=== PATIENT | female | born 1960 | race Caucasian/White ===

== ENCOUNTER → 2018-06-11 15:21 | Outpatient (REF) | payer MEDICAID, SELFPAY | LOC: NCHCN 15:21 | PROVIDERS: Visit Provider Nurse Practitioner Family | DX: R30.0 Dysuria (principal) | CPT/HCPCS: 87086 ==

== ENCOUNTER → 2018-07-07 12:43 | Outpatient (CLI) | payer MEDICAID, SELFPAY ==
[2018-07-07 13:12] LABS: Abs Immature Grans 0.01 k/cumm (0.0-0.09); Absolute Basophil Count 0.04 k/cumm (0.0-0.2); Absolute Eosinophil Count 0.28 k/cumm (0.0-0.7); Absolute Lymphocyte Count 2.51 k/cumm (1.2-3.4); Absolute Monocyte Count 0.47 k/cumm (0.11-0.7); Basophils % 0.6; Eosinophils % 4.3; HCT 42.1 % (36.0-46.0); HGB 13.5 g/dL (12.0-15.5); Immature Grans % 0.2; Lymphocytes % 38.6; Mean Corp. HGB Concentration 32.1 g/dL (32.0-36.0); Mean Corpuscular Hemoglobin 26.5 pg (27.0-33.0); Mean Corpuscular Volume 82.7 fL (80-95); Monocytes % 7.2; Neutrophils % 49.1; Platelet Count 255 x1000/uL (130-400); RBC 5.09 m/cumm (4.00-5.20); RBC Distribution Width 16.6 % (11.7-14.6); White Blood Cell Count 6.51 k/cumm (4.4-10.8)
[2018-07-07 14:01] LABS: ALT 28 U/L (12-78); Albumin 3.7 g/dL (3.4-5.0); Alkaline Phosphatase 83 U/L (46-116); Bilirubin, Direct 0.08 mg/dL (0.00-0.20); Bilirubin, Total 0.3 mg/dL (0.2-1.0); C-Reactive Protein 0.27 mg/dL (0.0-0.3); Total Protein 6.8 g/dL (6.4-8.2)
[2018-07-07 14:17] LABS: AST 20 U/L (15-37)
== END ==
PROVIDERS: Visit Provider Internal Medicine Gastroenterology
DX: K52.9 Noninfective gastroenteritis and colitis, unspecified (principal); Z79.899 Other long term (current) drug therapy
CPT/HCPCS: 36415; 80076; 85025; 86140

== ENCOUNTER 2018-07-20 16:14 | Outpatient (CLI) | payer MEDICAID, SELFPAY ==
[2018-07-20 17:45] LABS: Abs Immature Grans 0.01 k/cumm (0.0-0.09); Absolute Basophil Count 0.04 k/cumm (0.0-0.2); Absolute Eosinophil Count 0.28 k/cumm (0.0-0.7); Absolute Lymphocyte Count 3.03 k/cumm (1.2-3.4); Absolute Monocyte Count 0.76 k/cumm (0.11-0.7); Basophils % 0.6; Eosinophils % 3.9; HCT 41.5 % (36.0-46.0); HGB 13.4 g/dL (12.0-15.5); Immature Grans % 0.1; Lymphocytes % 42.6; Mean Corp. HGB Concentration 32.3 g/dL (32.0-36.0); Mean Corpuscular Hemoglobin 26.7 pg (27.0-33.0); Mean Corpuscular Volume 82.8 fL (80-95); Mean Platelet Volume 10.6 fL (8.0-11.0); Monocytes % 10.7; Neutrophils % 42.1; Platelet Count 212 x1000/uL (130-400); RBC 5.01 m/cumm (4.00-5.20); RBC Distribution Width 16.1 % (11.7-14.6); White Blood Cell Count 7.12 k/cumm (4.4-10.8)
[2018-07-20 17:52] LABS: ALT 28 U/L (12-78); AST 19 U/L (15-37); Albumin 3.6 g/dL (3.4-5.0); Alkaline Phosphatase 83 U/L (46-116); Bilirubin, Direct 0.05 mg/dL (0.00-0.20); Bilirubin, Total 0.2 mg/dL (0.2-1.0); Total Protein 6.7 g/dL (6.4-8.2)
== END 2018-07-20 16:34 ==
PROVIDERS: Visit Provider Internal Medicine Gastroenterology
DX: K52.9 Noninfective gastroenteritis and colitis, unspecified (principal); Z79.899 Other long term (current) drug therapy
CPT/HCPCS: 80076; 85025; 86140

== ENCOUNTER 2018-09-02 11:42 | Outpatient (CLI) | payer MEDICAID, SELFPAY ==
[2018-09-02 12:28] LABS: Abs Immature Grans 0.02 k/cumm (0.0-0.09); Absolute Basophil Count 0.02 k/cumm (0.0-0.2); Absolute Eosinophil Count 0.22 k/cumm (0.0-0.7); Absolute Lymphocyte Count 2.59 k/cumm (1.2-3.4); Absolute Monocyte Count 0.47 k/cumm (0.11-0.7); Absolute Neutrophil Count 2.98 k/cumm (1.2-6.7); Basophils % 0.3; Eosinophils % 3.5; HCT 39.8 % (36.0-46.0); HGB 12.7 g/dL (12.0-15.5); Immature Grans % 0.3; Lymphocytes % 41.1; Mean Corp. HGB Concentration 31.9 g/dL (32.0-36.0); Mean Corpuscular Volume 84.7 fL (80-95); Mean Platelet Volume 10.2 fL (8.0-11.0); Monocytes % 7.5; Neutrophils % 47.3; Platelet Count 216 x1000/uL (130-400); RBC Distribution Width 15.7 % (11.7-14.6)
[2018-09-02 13:41] LABS: ALT 30 U/L (12-78); AST 17 U/L (15-37); Albumin 3.6 g/dL (3.4-5.0); Alkaline Phosphatase 76 U/L (46-116); Bilirubin, Total 0.3 mg/dL (0.2-1.0); Total Protein 6.4 g/dL (6.4-8.2)
[2018-09-02 13:50] LABS: C-Reactive Protein 0.31 mg/dL (0.0-0.3)
== END 2018-09-02 12:02 ==
PROVIDERS: Visit Provider Internal Medicine Gastroenterology
DX: K52.9 Noninfective gastroenteritis and colitis, unspecified (principal); Z79.899 Other long term (current) drug therapy
CPT/HCPCS: 36415; 80076; 85025; 86140

== ENCOUNTER 2018-09-27 16:48 | Outpatient (CLI) | payer MEDICAID, SELFPAY ==
[2018-09-27 17:08] LABS: Abs Immature Grans 0.01 k/cumm (0.0-0.09); Absolute Basophil Count 0.02 k/cumm (0.0-0.2); Absolute Eosinophil Count 0.27 k/cumm (0.0-0.7); Absolute Lymphocyte Count 2.84 k/cumm (1.2-3.4); Absolute Monocyte Count 0.79 k/cumm (0.11-0.7); Basophils % 0.3; Eosinophils % 3.5; Immature Grans % 0.1; Lymphocytes % 37.2; Mean Corp. HGB Concentration 32.5 g/dL (32.0-36.0); Mean Corpuscular Hemoglobin 27.4 pg (27.0-33.0); Mean Corpuscular Volume 84.2 fL (80-95); Mean Platelet Volume 10.1 fL (8.0-11.0); Monocytes % 10.4; Neutrophils % 48.5; Platelet Count 245 x1000/uL (130-400); RBC 4.75 m/cumm (4.00-5.20); RBC Distribution Width 15.6 % (11.7-14.6); White Blood Cell Count 7.63 k/cumm (4.4-10.8)
[2018-09-27 19:02] LABS: ALT 38 U/L (12-78); AST 21 U/L (15-37); Albumin 3.8 g/dL (3.4-5.0); Alkaline Phosphatase 73 U/L (46-116); Bilirubin, Direct 0.07 mg/dL (0.00-0.20); Bilirubin, Total 0.3 mg/dL (0.2-1.0); Total Protein 6.6 g/dL (6.4-8.2)
== END 2018-09-27 17:08 ==
PROVIDERS: Visit Provider Internal Medicine Gastroenterology
DX: K52.9 Noninfective gastroenteritis and colitis, unspecified (principal); Z79.899 Other long term (current) drug therapy
CPT/HCPCS: 36415; 80076; 85025; 86140

== ENCOUNTER 2018-11-04 12:20 | Outpatient (REF) | payer MEDICAID, SELFPAY ==
--- NOTE | 2018-11-04 11:12 | PAPFT_PTH ---
PATIENT: Parris Ibanez LOC: [facility] U#:[id number] AGE/SX: 58/F ROOM: RE11/04/[address]: Alida Adams : 1960 BED: DIS: 11/04/2018 SPEC #: [id number] RECD: 11/05/18 13:12 STATUS: SHEELA REQ #: [id number] VIOLA: 11/04/18 11:[address]: Alida Adams DEPT: [facility] Cytology RECD BY: Mariana Brasher ENTERED: 11/05/18 13:13 SP TYPE: PAPFT OTHR DR: Concepcion Dodd Tissues: 1 - CX/ENDOCX FOR PAP SMEARS Procedures: PAP THIN PREP/UVM Screening Comments: [id number] (UNSATISFACTORY FOR EVALUATION)
[2018-11-04 21:17] LABS: Bilirubin Negative (Negative); Blood Negative (Negative); Clarity Clear; Glucose Negative (Negative); Ketones Negative (Negative); Leukocyte Esterase Negative (Negative); Nitrite Negative (Negative); Specific Gravity 1.025 (1.005-1.025); Urobilinogen 0.2 EU/dL (Up TO 0.2); pH 6.5 (5-8)
== END 2018-11-04 12:40 ==
LOC: NCHCN 12:20
PROVIDERS: Visit Provider Nurse Practitioner Family
DX: R10.9 Unspecified abdominal pain (principal); Z12.4 Encounter for screening for malignant neoplasm of cervix
CPT/HCPCS: 88142; 81003; 87480; 87510; 87660

== ENCOUNTER 2018-11-18 08:14 | Outpatient (CLI) | payer MEDICAID, SELFPAY ==
--- NOTE | 2018-11-18 16:25 | DI.MAMMO_ITS ---
SYMPTOM/DIAGNOSIS: SCREENING, Z12.39 MAMMOGRAMS: Mammograms were interpreted according to the usual protocol including computer analysis with CAD system, tomosynthesis and C view imaging. Comparison is made with exams from [id number]. The breasts are composed of scattered fibroglandular densities, breast density, category B. No suspicious masses or suspicious microcalcifications are seen. There has been no significant change. IMPRESSION: Category 1B, negative mammogram. Yearly screening mammography is recommended. [facility] ASSESSMENT OF FINDINGS: Negative. Category 1. Patient will receive a letter notifying them of these results. BI-RADS category B. There are scattered areas of fibroglandular density.
== END 2018-11-18 08:34 ==
PROVIDERS: PCP Nurse Practitioner Family; Visit Provider Nurse Practitioner Family
DX: Z12.31 Encounter for screening mammogram for malignant neoplasm of breast (principal)
CPT/HCPCS: 77063; 77067

== ENCOUNTER 2018-11-23 15:43 | Outpatient (CLI) | payer MEDICAID, SELFPAY ==
[2018-11-23 17:08] LABS: ALT 35 U/L (12-78); AST 17 U/L (15-37); Anion Gap 11.1 mmol/L (3-11); BUN 14 mg/dL (7-18); CO2 26.9 mmol/L (21.0-32.0); CREATININE 0.78 mg/dL (0.55-1.02); Calcium 8.7 mg/dL (8.5-10.1); Chloride 104 mmol/L (98-107); Cholesterol 209 mg/dL (50-200); Glucose 130 mg/dL (70-100); HDL Cholesterol 73 mg/dL (40-60); LDL CHOLESTEROL 107 mg/dL (<100); Potassium 3.7 mmol/L (3.5-5.1); Sodium 142 mmol/L (136-145); Triglyceride 194 mg/dL (30-150)
[2018-11-23 17:20] LABS: D-Dimer 440 ng/mlFEU (<500)
[2018-11-23 18:28] LABS: Creatine Kinase 133 U/L (26-192); NT-proBNP 32 pg/mL
== END 2018-11-23 16:03 ==
PROVIDERS: PCP Nurse Practitioner Family; Visit Provider Nurse Practitioner Family
DX: R07.89 Other chest pain (principal); I10 Essential (primary) hypertension; E66.9 Obesity, unspecified
CPT/HCPCS: 36415; 80048; 80061; 82550; 83721; 83880; 84450; 84460; 85379

== ENCOUNTER 2018-11-23 17:15 | Outpatient (REF) | payer MEDICAID, SELFPAY ==
--- NOTE | 2018-11-23 14:43 | PAPFT_PTH ---
PATIENT: Parris Ibanez LOC: [facility] U#:[id number] AGE/SX: 58/F ROOM: RE11/23/[address]: Alida Adams : 1960 BED: DIS: 11/23/2018 SPEC #: [id number] RECD: 11/24/18 12:52 STATUS: SHEELA REQ #: [id number] VIOLA: 11/23/18 14:[address]: Alida Adams DEPT: [facility] Cytology RECD BY: Mariana Brasher ENTERED: 11/24/18 12:52 SP TYPE: PAPFT OTHR DR: Roxana Mills Tissues: 1 - CX/ENDOCX FOR PAP SMEARS Procedures: PAP THIN PREP/UVM Screening HPV DNA PROBE Comments: [id number]
== END 2018-11-23 17:35 ==
LOC: NCHCN 17:15
PROVIDERS: PCP Nurse Practitioner Family; Visit Provider Nurse Practitioner Family
DX: Z12.4 Encounter for screening for malignant neoplasm of cervix (principal); Z11.51 Encounter for screening for human papillomavirus (HPV); Z00.00 Encounter for general adult medical examination without abnormal findings; Z01.419 Encounter for gynecological examination (general) (routine) without abnormal findings
CPT/HCPCS: 88142; 87624

== ENCOUNTER 2019-02-22 18:11 | Outpatient (REF) | payer MEDICAID, SELFPAY ==
[2019-02-22 21:44] LABS: HCT 38.8 % (36.0-46.0); HGB 12.4 g/dL (12.0-15.5); Mean Corpuscular Volume 81.3 fL (80-95); Mean Platelet Volume 10.7 fL (8.0-11.0); Platelet Count 256 x1000/uL (130-400); RBC 4.77 m/cumm (4.00-5.20); RBC Distribution Width 16.7 % (11.7-14.6); White Blood Cell Count 7.82 k/cumm (4.4-10.8)
[2019-02-22 22:00] LABS: Iron 25 ug/dL (50-175); Total Iron Binding Capacity 385 ug/dL (250-450); Transferrin Sat 6 % (15-50)
[2019-02-22 22:12] LABS: TSH (W/Ref FT4) 1.47 uIU/mL (0.358-3.74)
[2019-02-22 22:31] LABS: Hemoglobin A1C 6.3 % (4.5-6.2)
== END 2019-02-22 18:31 ==
LOC: NCHCN 18:11
PROVIDERS: PCP Nurse Practitioner Family; Visit Provider Nurse Practitioner Family
DX: D64.9 Anemia, unspecified (principal); K50.90 Crohn's disease, unspecified, without complications; Z00.00 Encounter for general adult medical examination without abnormal findings; R53.83 Other fatigue
CPT/HCPCS: 85027; 83036; 83540; 83550; 84443

== ENCOUNTER 2019-03-23 16:32 | Outpatient (REF) | payer MEDICAID, SELFPAY | END 2019-03-23 16:52 | LOC: NCHCN 16:32 | PROVIDERS: PCP Nurse Practitioner Family; Visit Provider Nurse Practitioner Family | DX: Z87.440 Personal history of urinary (tract) infections (principal) | CPT/HCPCS: 87086 ==

== ENCOUNTER 2019-05-16 15:30 | Outpatient (REF) | payer MEDICAID, SELFPAY | END 2019-05-16 15:50 | LOC: NCHCN 15:30 | PROVIDERS: PCP Nurse Practitioner Family; Visit Provider Nurse Practitioner Family | DX: R39.9 Unspecified symptoms and signs involving the genitourinary system (principal) | CPT/HCPCS: 87077; 87086; 87186 ==

== ENCOUNTER 2019-06-30 01:10 | Outpatient (CLI) | payer MEDICAID, SELFPAY ==
--- NOTE | 2019-06-30 10:21 | DI.RAD_ITS ---
SYMPTOM/DIAGNOSIS: BACK PAIN M54.5 LUMBAR SPINE: AP lateral and bilateral oblique views. There are five lumbar type vertebral bodies. There is normal alignment. No spondylolysis or spondylolisthesis is seen. There are end plate osteophytes throughout the lumbar spine Disc heights appear well maintained. There are degenerative changes of the facets seen in the lower lumbar spine. No acute fracture or subluxation is seen. IMPRESSION: Mild to moderate degenerative changes in the lumbar spine.
== END 2019-06-30 01:30 ==
PROVIDERS: PCP Nurse Practitioner Family; Visit Provider Nurse Practitioner Family
DX: M54.5 Low back pain (principal); M47.816 Spondylosis without myelopathy or radiculopathy, lumbar region
CPT/HCPCS: 72110

== ENCOUNTER 2019-07-27 09:50 | Observation (INO) | payer MEDICAID, SELFPAY ==
[2019-07-27] VITALS (96 sets, daily range): BP systolic 71–201; BP diastolic 50–125; PULSE 62–98; RESP 0–40; TEMP 36.6–36.8; O2SAT 89–98
--- NOTE | 2019-07-27 10:07 | W.ED.GENAD ---
Discharge Plan Disposition Condition: Stable Discharge Details Chief Complaint: Chest Pain Admit Date/Time: 07/27/19 11:48 Admit Provider: Leonard Maloney Attending Provider: Leonard Maloney Primary Care Provider: Roxana Mills ED Provider: Alon Bueno Discharge Instructions Activity:: Activity as Tolerated Equipment/Supplies:: No Equipment Needed Diet:: Normal Diet Discharge Orders Discharge Orders: Discharge Order (Routine); Ordered 07/28/19 Ordered By: Leonard Maloney Discharge Data Discharge Date/Time-TO BE ENTERED AT DEPARTURE: 07/27/19 13:07 Medical Decision Making 10:15 --58-year-old female with history of hypertension, Crohn's disease, family history of coronary artery disease, here after episode of chest pain last night with persistent shortness of breath today. Screening ECG was reviewed and interpreted by me: Sinus rhythm 88 bpm, normal axis, ST depressions are noted V4 to V6. Plan to check troponin. Consider ACS. Plan to check troponin. Consider pulmonary embolism. Patient is not tachycardic and is saturating 95% on room air. I will check a d-dimer. 11:45 -- Initial trop neg. d-dimer slightly elevated. Will proceed to CT of the chest. I called and spoke with Dr. Maloney who will admit the patient and requests bridging orders be placed to the floor on telemetry. CT pending at time of admission. HPI General Mode of arrival: ambulatory. Date/Time Provider Initiated Documentation: 07/27/19 09:54. Limitations to Documentation: no limitations. Information obtained by: patient. HPI Narrative: 58-year-old female with history of hypertension, family history of coronary artery disease in her father, Crohn's disease, presents with chief complaint of chest discomfort. Patient notes that last night she was making dinner and had sudden onset of squeezing chest pain that was moderate to severe in intensity and lasted about 15 minutes before resolving. She had associated shortness of breath and associated nausea during this episode. Shortness of breath has continued this morning. She has not had any recurrent chest pain. She went to her primary care physician today who directed her to come to the emergency department for further work-up. She does note intermittent swelling of her legs and intermittent calf pain in her legs. No significant calf pain or swelling recently. Related Data Home Medications Medication Instructions Recorded Confirmed Prilosec OTC 40 mg PO DAILY NS 01/02/14 07/27/19 fluticasone propion-salmeterol 1 ea INHALATION DAILY disk NS 01/02/14 07/27/19 [Advair Diskus] levalbuterol tartrate [Xopenex HFA] 90 mcg INHALATION Q4H PRN inhaler 01/02/14 07/27/19 NS montelukast 10 mg PO DAILY tab-cap NS 01/02/14 07/27/19 verapamil 240 mg PO DAILY tab-cap NS 01/02/14 07/27/19 ibuprofen 600 mg PO Q6H PRN #20 tab 04/24/17 07/27/19 cholecalciferol (vitamin D3) 1,000 unit PO DAILY 07/27/19 07/27/19 [Vitamin D3] cyclobenzaprine 5 mg PO TID PRN 07/27/19 07/27/19 ferrous sulfate 325 mg PO DAILY 07/27/19 07/27/19 glucosamine sulfate [Glucosamine] 500 mg PO DAILY 07/27/19 07/27/19 lisinopril 20 mg PO DAILY 07/27/19 07/27/19 omega 7-hen-aqg-fish oil [Fish Oil] 1 cap PO DAILY 07/27/19 07/27/19 paroxetine HCl 20 mg PO DAILY 07/27/19 07/27/19 Previous Rx's Medication Instructions Recorded ibuprofen 600 mg PO Q6H PRN #20 tab 04/24/17 Allergies Allergy/AdvReac Type Severity Reaction Status Date / Time methadone Allergy Severe Unverified 07/27/19 10:10 polyethylene glycol Allergy Severe Unverified 07/27/19 10:10 [From Golytely] polyethylene glycol 3350 Allergy Severe Unverified 07/27/19 10:10 [From Golytely] potassium chloride* Allergy Severe Unverified 07/27/19 10:10 [From Golytely] sodium [From Golytely] Allergy Severe Unverified 07/27/19 10:10 sodium bicarbonate Allergy Severe Unverified 07/27/19 10:10 [From Golytely] sodium chloride Allergy Severe Unverified 07/27/19 10:10 [From Golytely] sodium sulfate Allergy Severe Unverified 07/27/19 10:10 [From Golytely] mercaptopurine Allergy Mild Unverified 07/27/19 10:10 methylprednisolone AdvReac Severe GI bleeding Unverified 04/24/17 17:11 [From Medrol] Miriamin CF, OTC AdvReac Severe Heat Uncoded 04/24/17 17:11 reaction General Stated Complaint: Chest Pain SILVIA: 2 Review of Systems Review of Systems ROS Unobtainable: All systems reviewed & are unremarkable except as noted in HPI and below Eyes Eyes: Reports irritation Cardiovascular Cardiovascular: Reports as per HPI Respiratory Respiratory: Reports as per HPI [facility] Medical History Crohns disease (Chronic) Hypertension (Chronic) Social History Smoking/Tobacco Use Status: Never Alcohol Intake: current Alcohol Intake frequency: holidays/special occasions only Drug use: Never Do you feel safe at home: Yes Do you feel safe in your relationship?: Yes Exam Const General: cooperative and no acute distress HENMT Head: normocephalic Mouth: moist mucous membranes Eyes Conjunctivae: normal conjunctivae Sclera: normal sclerae Neck Neck: trachea midline and supple Resp Auscultation: clear to auscultation bilaterally, no rales, no rhonchi and no wheezes Cardio Jugular venous pressure: no JVD Rate: regular rate and not tachycardic Rhythm: regular rhythm GI Palpation: soft, not firm, no guarding, no masses, not rigid and nontender Skin General skin exam: no rashes or lesions noted Neuro General: alert, awake and tone normal Extrem General: no edema Psych Appearance: grossly normal Mental Status: mental status grossly normal Course Vital Signs Vital signs: Vital Signs Temperature 36.6 C 07/27/19 09:54 Pulse 80 07/27/19 09:54 Respiratory Rate 07/27/19 09:54 Blood Pressure 191/112 H 07/27/19 09:54 Pulse Oximetry 95 07/27/19 09:54 Temperature 36.6 C 07/27/19 09:54 Temperature Source Skin 07/27/19 09:54 Pulse 80 07/27/19 09:54 Respiratory Rate 07/27/19 09:54 Blood Pressure 191/112 H 07/27/19 09:54 Blood Pressure Position Supine 07/27/19 09:54 Pulse Oximetry 95 07/27/19 09:54 Oxygen Delivery Method Room Air 07/27/19 09:54 Oxygen Flow Rate 0 07/27/19 09:54 Pain Level 2 07/27/19 09:54
[2019-07-27 10:45] LABS: RBC 5.14 m/cumm (4.00-5.20)
[2019-07-27 10:46] LABS: Absolute Lymphocyte Count 2.74 k/cumm (1.2-3.4); Absolute Monocyte Count 0.38 k/cumm (0.11-0.7); Absolute Neutrophil Count 4.18 k/cumm (1.2-6.7); Atypical Lymphocytes % 4; HCT 45.7 % (36.0-46.0); Mean Corp. HGB Concentration 32.8 g/dL (32.0-36.0); Mean Corpuscular Hemoglobin 29.2 pg (27.0-33.0); Mean Corpuscular Volume 88.9 fL (80-95); Platelet Count 204 x1000/uL (130-400); RBC Distribution Width 15.3 % (11.7-14.6)
[2019-07-27 10:47] LABS: Diff Comment Manual Differential; RBC Morphology Normal
[2019-07-27 10:56] LABS: ALT 29 U/L (14-59); AST 14 U/L (15-37); Albumin 3.7 g/dL (3.4-5.0); Alkaline Phosphatase 82 U/L (46-116); Anion Gap 8.9 mmol/L (3-11); BUN 15 mg/dL (7-18); Bilirubin, Total 0.4 mg/dL (0.2-1.0); CO2 28.1 mmol/L (21.0-32.0); CREATININE 0.76 mg/dL (0.55-1.02); Calcium 8.4 mg/dL (8.5-10.1); Chloride 104 mmol/L (98-107); Glucose 137 mg/dL (70-100); Magnesium 1.9 mg/dL (1.8-2.4); Potassium 3.8 mmol/L (3.5-5.1); Sodium 141 mmol/L (136-145); Total Protein 7.1 g/dL (6.4-8.2)
[2019-07-27 10:57] LABS: Troponin I < 0.05 ng/mL (0.00-0.06)
[2019-07-27 11:07] LABS: D-Dimer 548 ng/mlFEU (<500)
[2019-07-27 11:39] LABS: NT-proBNP 26 pg/mL
[2019-07-27] MEDS: Omnipaque 350 MG/ML 100 ML BTL IJ (12:51)
--- NOTE | 2019-07-27 12:56 | DI.CT_ITS ---
EXAM: CT CHEST PE CTA CLINICAL HISTORY: chest pain, SOB, elevated D-dimer. TECHNIQUE: Axial CT angiography was performed with multislice acquisition and multiplanar and/or 3D reconstructions. CT angiography of the chest was performed with a bolus infusion of 100 cc of Omnipaque 350. COMPARISON: No exams were available for comparison FINDINGS: Images obtained through the upper abdomen show unremarkable appearance of visualized portions of live r and spleen. No mediastinal or hilar adenopathy. No significant abnormality of the tracheobronchia l tree. The heart is enlarged. No pericardial effusion seen. No evidence of pulmonary embolic dise ase. No thoracic aortic aneurysm or dissection. No pleural effusion. Lungs show mosaic attenuation but no focal consolidation is seen. This is a nonspecific finding. IMPRESSION: No evidence of pulmonary embolic disease. Cardiomegaly noted.
[2019-07-27 14:53] LABS: Troponin I < 0.05 ng/mL (0.00-0.06)
[2019-07-27] MEDS: Enoxaparin 40 MG/0.4 ML SYR SC (15:25)
--- NOTE | 2019-07-27 16:30 | W.PM.HP.N ---
Date of service: 07/27/19 Time of Service: 16:30 Assessment and Plan Assessment and plan (1) Chest pain: Start date: 07/27/19 Start time: 17:14 Status: Acute Assessment and plan: Advised to present to [facility] ER this morning by her PCP for chest pain pressure 5/10 with activity which occurred yesterday afternoon. Chest pain resolved without intervention after 15 minutes. She does endorse associated SOB and diaphoresis. Denies radiation to extremities, neck and back. D-Dimer was elevated at 548 however, the CTA obtained in the ER is negative for pulmonary embolism. CTA does reveal cardiomegaly. EKG was reviewed by Dr Bueno and is reported to be sinus rhythm 88 bpm, normal axis, ST depressions are noted V4 to V6. Thus far the troponins are flat at 0.05. Due to her presenting symptoms and EKG changes, the patient is admitted for ACS rule out. She will be monitored via telemetry, continue with serial troponins, echocardiogram, and nuclear stress test are all ordered. Daily CBC, BMP, and magnesium will also be followed. Plan to replete electrolytes as needed. Nitrogylerine 0.4mg PRN chest pain. (2) Hypertension: Start date: 07/27/19 Start time: 17:26 Status: Chronic Assessment and plan: Patient presents with hypertension BP 160-140s/90-110s. She takes lisinopril 20mg po and Verapamil 240mg po nightly. Plan to maintain on home medications however, would consider IV hydralazine or IV lopressor if SBP > 170 or DBP >110. (3) Asthma: Start date: 07/27/19 Start time: 17:32 Status: Chronic Assessment and plan: Stable. Continue with home medications Advair, Xopenex, and montelukast. (4) Crohns disease: Start date: 07/27/19 Start time: 17:37 Status: Chronic Assessment and plan: Stable. Maintained on Humira every 2 wks. Last injection 07/26/19. Followed as an outpatient by Dr. Dylan Mcnally at [facility] [place]. (5) Sleep apnea: Start date: 07/27/19 Start time: 17:52 Status: Chronic Assessment and plan: Stable. Reports compliance with CPAP at home. Did not bring home appliance. Orders for RT to titrate CPAP while inpatient status. History of Present Illness History of Present Illness Chief Complaint: chest pain Narrative: Santiago is a 58yo female with past medical history of HTN, asthma, chron's disease, CINTIA (CPAP at home), and family history of CAD. She was advised to present to [facility] ER by her PCP related to her complaints of having resolved 5/10 chest pressure yesterday at home while cooking lunch for her family. The patient states that her chest pain pressure lasted for approximately 15 minutes. She endorses associated SOB with diaphoresis but denies raditation to her extremites, neck and, back. After this event resolved she states that she took a nap and resumed her activities. Denies ever having chest pain symptoms prior to yesterday. Does state that she has been under a lot of stress lately. Denies headaches or blurry vision. Denies recent cold symptoms. No cough, SOB, or FERNANDES. Denies abdominal pain, nausea, vomiting, diarrhea, hematachezia, melena. LBM 07/26/19 normal. States her Chron's disease is well managed as an outpatient. Denies dysuria, frequency, retention, hesitation. Denies mobility issues. Denies recent fevers, sick contacts, ETOH, Smoking history, and illicit drug use. In the ER, the patient was ruled out for a pulmonary emoblism per Chest CTA. Intital troponins are flat at 0.05. Plan will be to admit for ACS rule out. The patient will be placed on telemetry with serial troponins. An echocardiogram and a nuclear stress test are ordered for tomorrow. Review of Systems Review of Systems ROS Unobtainable: All systems reviewed & are unremarkable except as noted in HPI and below PFS Medical History (Updated 07/27/19 @ 17:52 by Kayleigh Lee NP) Crohns disease (Chronic) Hypertension (Chronic) Social History Smoking/Tobacco Use Status: Never Alcohol Intake: current Alcohol Intake frequency: holidays/special occasions only Drug use: Never Do you feel safe at home: Yes Do you feel safe in your relationship?: Yes Meds Home Medications and Allergies Home Medications Medication Instructions Recorded Confirmed Type Prilosec OTC 40 mg PO DAILY NS 01/02/14 07/27/19 History fluticasone propion-salmeterol 1 ea INHALATION DAILY disk NS 01/02/14 07/27/19 History [Advair Diskus] levalbuterol tartrate [Xopenex HFA] 90 mcg INHALATION Q4H PRN inhaler 01/02/14 07/27/19 History NS montelukast 10 mg PO DAILY tab-cap NS 01/02/14 07/27/19 History verapamil 240 mg PO DAILY tab-cap NS 01/02/14 07/27/19 History ibuprofen 600 mg PO Q6H PRN #20 tab 04/24/17 07/27/19 Rx cholecalciferol (vitamin D3) 1,000 unit PO DAILY 07/27/19 07/27/19 History [Vitamin D3] cyclobenzaprine 5 mg PO TID PRN 07/27/19 07/27/19 History ferrous sulfate 325 mg PO DAILY 07/27/19 07/27/19 History glucosamine sulfate [Glucosamine] 500 mg PO DAILY 07/27/19 07/27/19 History lisinopril 20 mg PO DAILY 07/27/19 07/27/19 History omega 0-hux-yek-fish oil [Fish Oil] 1 cap PO DAILY 07/27/19 07/27/19 History paroxetine HCl 20 mg PO DAILY 07/27/19 07/27/19 History Allergies Allergy/AdvReac Type Severity Reaction Status Date / Time methadone Allergy Severe Unverified 07/27/19 10:10 polyethylene glycol Allergy Severe Unverified 07/27/19 10:10 [From Golytely] polyethylene glycol 3350 Allergy Severe Unverified 07/27/19 10:10 [From Golytely] potassium chloride* Allergy Severe Unverified 07/27/19 10:10 [From Golytely] sodium [From Golytely] Allergy Severe Unverified 07/27/19 10:10 sodium bicarbonate Allergy Severe Unverified 07/27/19 10:10 [From Golytely] sodium chloride Allergy Severe Unverified 07/27/19 10:10 [From Golytely] sodium sulfate Allergy Severe Unverified 07/27/19 10:10 [From Golytely] mercaptopurine Allergy Mild Unverified 07/27/19 10:10 methylprednisolone AdvReac Severe GI bleeding Unverified 04/24/17 17:11 [From Medrol] Tussin CF, OTC AdvReac Severe Heat Uncoded 04/24/17 17:11 reaction Exam Const General: cooperative, healthy appearing, comfortable and no acute distress Nutritional Appearance: obese Orientation: alert, awake and oriented x3 HENMT Head: normal to inspection Mouth: oral mucosae normal Teeth and gingiva: dentition normal Eyes General: appearance normal, both eyes and all related structures Pupils: PERRL EOM: EOM intact bilaterally Neck Neck: normal visual inspection, trachea midline and supple Chest Chest: normal inspection of the chest Resp Effort & Inspection: normal respiratory effort Auscultation: clear to auscultation bilaterally Cardio Jugular venous pressure: no JVD Rate: regular rate Rhythm: regular rhythm Heart Sounds: S1 normal and S2 normal Pulses: normal peripheral pulses Other: No peripheral edema GI Inspection: obesity Palpation: soft and no hepatosplenomegaly Auscultation: normal bowel sounds General: deferred Back/Spine/Pelvis Thoracic/Lumbar Spine: thoracic and lumbar spine normal to inspection Skin General skin exam: no rashes or lesions noted Neuro General: alert, awake and oriented x3 Cranial Nerves: CN's II-XI intact bilaterally Motor: muscle tone normal throughout Sensory Exam: no sensory deficits noted Extrem General: normal to inspection, full ROM and no clubbing, cyanosis or edema Psych Appearance: grossly normal Affect: normal affect Attitude: cooperative Thought Process: normal Thought Content: normal Insight: insight good Judgment: judgment good Results Labs Result diagrams: 07/28/19 06:23 07/28/19 06:25 Labs: Laboratory Results - last 24 hr 07/27/19 07/27/19 07/27/19 10:15 10:16 10:16 WBC 7.60 RBC 5.14 Hgb 15.0 Hct 45.7 MCV 88.9 MCH 29.2 MCHC 32.8 RDW 15.3 H Plt Count 204 MPV 10.0 Immature Gran % 0.0 Neutrophils % 55.0 Lymphocytes % 32.0 Atypical Lymphs % 4 Monocytes % 5.0 Eosinophils % 4.0 Basophils % 0.0 Absolute Neutrophils 4.18 Absolute Lymphocytes 2.74 Absolute Monocytes 0.38 Absolute Eosinophils 0.30 Absolute Basophils 0.00 Differential Comment Manual differential RBC Morphology Normal D-Dimer Sodium 141 Potassium 3.8 Chloride 104 Carbon Dioxide 28.1 Anion Gap 8.9 BUN 15 Creatinine 0.76 Estimated GFR/1.73 m2 >= 60.00 Glucose 137 H Calcium 8.4 L Magnesium 1.9 Total Bilirubin 0.4 AST 14 L ALT 29 Alkaline Phosphatase 82 Troponin I < 0.05 NT-Pro-B Natriuret Pep 26 Total Protein 7.1 Albumin 3.7 07/27/19 07/27/19 10:16 14:25 WBC RBC Hgb Hct MCV MCH MCHC RDW Plt Count MPV Immature Gran % Neutrophils % Lymphocytes % Atypical Lymphs % Monocytes % Eosinophils % Basophils % Absolute Neutrophils Absolute Lymphocytes Absolute Monocytes Absolute Eosinophils Absolute Basophils Differential Comment RBC Morphology D-Dimer 548 H Sodium Potassium Chloride Carbon Dioxide Anion Gap BUN Creatinine Estimated GFR/1.73 m2 Glucose Calcium Magnesium Total Bilirubin AST ALT Alkaline Phosphatase Troponin I < 0.05 NT-Pro-B Natriuret Pep Total Protein Albumin Last Vital Signs Temp 36.8 C 07/27/19 13:00 Pulse 62 07/27/19 13:00 Resp 14 07/27/19 13:10 BP 162/99 H 07/27/19 13:00 Pulse Ox 95 07/27/19 13:10
[2019-07-27] MEDS: Lisinopril 20 MG TAB PO (18:07)
[2019-07-27 20:06] LABS: Troponin I < 0.05 ng/mL (0.00-0.06)
[2019-07-27] MEDS: Budesonide/Formoterol 80/4.5 6.9 GM 60 PUFF INH IH (21:09)
[2019-07-27] MEDS: Atorvastatin 40 MG TAB PO (21:09)
[2019-07-28] VITALS (45 sets, daily range): BP systolic 111–172; BP diastolic 54–103; PULSE 58–95; RESP 10–32; TEMP 36.8; O2SAT 89–98
[2019-07-28] MEDS: Acetaminophen 325 MG TAB PO (01:32)
--- NOTE | 2019-07-28 02:22 | NUR.NOTE ---
Addendum entered by Leigh Irizarry 07/28/19 02:26: time correction;pt c/o pain @0125;pt states pain resolved @0140 Original Note: at 12:30 this pt c/o l shoulder pain radiating down her arm. she states she has had this pain several times before;she treats it by massaging. the worst pain is in the elbow. she states she believes that it is muscular. prn tylenol given. at 12:45 she informed that she reaide the HOB up and the pain went away. Note:
[2019-07-28 07:00] LABS: Abs Immature Grans 0.01 k/cumm (0.0-0.09); Absolute Basophil Count 0.02 k/cumm (0.0-0.2); Absolute Lymphocyte Count 2.74 k/cumm (1.2-3.4); Absolute Monocyte Count 0.68 k/cumm (0.11-0.7); Absolute Neutrophil Count 4.13 k/cumm (1.2-6.7); Basophils % 0.3; Eosinophils % 2.6; HCT 44.7 % (36.0-46.0); HGB 14.9 g/dL (12.0-15.5); Immature Grans % 0.1; Lymphocytes % 35.2; Mean Corp. HGB Concentration 33.3 g/dL (32.0-36.0); Mean Corpuscular Hemoglobin 29.4 pg (27.0-33.0); Mean Corpuscular Volume 88.3 fL (80-95); Mean Platelet Volume 9.8 fL (8.0-11.0); Monocytes % 8.7; Neutrophils % 53.1; Platelet Count 225 x1000/uL (130-400); RBC 5.06 m/cumm (4.00-5.20); RBC Distribution Width 15.1 % (11.7-14.6); White Blood Cell Count 7.78 k/cumm (4.4-10.8)
[2019-07-28 07:20] LABS: Anion Gap 9.9 mmol/L (3-11); BUN 13 mg/dL (7-18); CO2 27.1 mmol/L (21.0-32.0); CREATININE 0.79 mg/dL (0.55-1.02); Calcium 8.8 mg/dL (8.5-10.1); Chloride 104 mmol/L (98-107); Glucose 103 mg/dL (70-100); Magnesium 2.1 mg/dL (1.8-2.4); Potassium 3.8 mmol/L (3.5-5.1); Sodium 141 mmol/L (136-145)
[2019-07-28 07:22] LABS: Troponin I < 0.05 ng/mL (0.00-0.06)
--- NOTE | 2019-07-28 07:30 | MERGE_ITS ---
*[facility]* *[facility]* [address] [place] [address] Date of study: 07/28/2019 Transthoracic Echocardiography M-mode, complete 2D, complete spectral Doppler, and color Doppler *STUDY CONCLUSIONS* Summary: 1. Left ventricle: The cavity size was normal. Wall thickness was at the upper limits of normal. Systolic function was normal. The estimated ejection fraction was 55-60%. Wall motion was normal; there were no regional wall motion abnormalities. 2. Right ventricle: The cavity size was normal. Systolic function was normal. 3. Inferior vena cava: The vessel was patent and normal in size. The respirophasic diameter changes were in the normal range (greater than or equal to 50%), consistent with normal central venous pressure. *PATIENT PRESENTATION* Height: 167.6cm (66in ) S/D Pressure: 117 / 54 Weight: 124.1kg (273lb ) BSA: 2.47m^2 Test start time: 07:35 AM. Test stop time: 08:35 AM. PERFORMING Unknown CONSULTING Leonard Maloney ORDERING Leonard Maloney REFERRING Leonard Maloney PERFORMING [facility] BUS OR TRUCK GARAGE MECHANIC RT Davis RDCS (R CT) *PROCEDURE DATA* Procedure information: The patient was identified by two identifiers. This study was interpreted by [facility]. Pertinent images and digital data are archived for permanent storage and are available for subsequent review. No prior study was available for comparison. Study status: Routine. Transthoracic echocardiography. M-mode, complete 2D, complete spectral Doppler, and color Doppler. A Transthoracic Echocardiogram was performed. Scanning was performed from the parasternal, apical, subcostal, and suprasternal notch acoustic windows. Images were obtained using an [id number] cardiac ultrasound machine. Image quality was adequate. Study completion: The patient tolerated the procedure well. There were no complications. History: PMH: Chest pain. Abnormal CT. *CARDIAC ANATOMY* Left ventricle: The cavity size was normal. Wall thickness was at the upper limits of normal. Systolic function was normal. The estimated ejection fraction was 55-60%. Wall motion was normal; there were no regional wall motion abnormalities. Aortic valve: Trileaflet; normal thickness leaflets. Mobility was not restricted. Doppler: Transvalvular velocity was within the normal range. There was no stenosis. There was no significant regurgitation. VTI ratio of LVOT to aortic valve: 0.77. Valve area (VTI): 2.4cm^2. Indexed valve area (VTI): 1cm^2/m^2. Peak velocity ratio of LVOT to aortic valve: 0.71. Valve area (Vmax): 2.2cm^2. Indexed valve area (Vmax): 0.9cm^2/m^2. Mean velocity ratio of LVOT to aortic valve: 0.73. Valve area (Vmean): 2.2cm^2. Indexed valve area (Vmean): 0.9cm^2/m^2. Mean gradient (S): 5.5mm Hg. Peak gradient (S): 10.2mm Hg. Aorta: Aortic root: The aortic root was normal in size. Ascending aorta: The ascending aorta was normal in size. Mitral valve: Structurally normal valve. Mobility was not restricted. Doppler: Transvalvular velocity was within the normal range. There was no evidence for stenosis. There was trivial regurgitation. Valve area by pressure half-time: 3.5cm^2. Indexed valve area by pressure half-time: 1.4cm^2/m^2. Peak gradient (D): 4.5mm Hg. Left atrium: The atrium was normal in size. Right ventricle: The cavity size was normal. Systolic function was normal. Pulmonic valve: Poorly visualized. Doppler: Transvalvular velocity was within the normal range. There was no evidence for stenosis. There was no significant regurgitation. Tricuspid valve: Structurally normal valve. Doppler: Transvalvular velocity was within the normal range. There was no evidence for stenosis. There was trivial regurgitation. Pulmonary artery: Poorly visualized. Systolic pressure could not be accurately estimated. Right atrium: The atrium was normal in size. Pericardium: There was no pericardial effusion. Systemic veins: Inferior vena cava: Well visualized. The vessel was patent and normal in size. The respirophasic diameter changes were in the normal range (greater than or equal to 50%), consistent with normal central venous pressure. Baseline ECG: Normal sinus rhythm. Measurements Left ventricle Value Reference LV ID, ED, PLAX 4.7 cm 3.5 - 6.0 LV ID, ES, PLAX 3.1 cm 2.1 - 4.0 LV PW thickness, ED, PLAX 1.1 cm LV end-diastolic volume, 1-p A2C 103 ml LV ejection fraction, 1-p A2C 60 % LV end-diastolic volume, 1-p A4C 116 ml LV ejection fraction, 1-p A4C 53 % LV e', lateral 0.075 m/sec LV E/e', lateral 14 LV e', medial 0.049 m/sec LV E/e', medial 22 LV e', average 0.062 m/sec LV E/e', average 17 Ventricular septum Value Reference IVS thickness, ED, PLAX 1.0 cm LVOT Value Reference LVOT ID, A-P 2.0 cm LVOT area 3.1 cm^2 LVOT peak velocity, S 1.13 m/sec LVOT mean velocity, S 0.82 m/sec LVOT VTI, S 23.9 cm LVOT peak gradient, S 5.2 mm Hg LVOT mean gradient, S 2.9 mm Hg Stroke volume (SV), LVOT DP 73 ml Stroke index (SV/bsa), LVOT DP 30 ml/m^2 Aortic valve Value Reference Aortic valve peak velocity, S 1.6 m/sec Aortic valve mean velocity, S 1.1 m/sec Aortic valve VTI, S 31.0 cm Aortic mean gradient, S 5.5 mm Hg Aortic peak gradient, S 10.2 mm Hg VTI ratio, LVOT/AV 0.77 Aortic valve area, VTI 2.4 cm^2 Velocity ratio, peak, LVOT/AV 0.71 Aortic valve area, peak velocity 2.2 cm^2 Velocity ratio, mean, LVOT/AV 0.73 Aortic valve area, mean velocity 2.2 cm^2 Aortic valve area/bsa, mean velocity 0.9 cm^2/m^2 Aorta Value Reference Aortic root ID, ED 3.0 cm Ascending aorta ID, A-P, S 2.9 cm Left atrium Value Reference LA ID, A-P, ES 4.1 cm LA ID/bsa, A-P 1.7 cm/m^2 <=2.2 LA volume/bsa, ES, 1-p A4C 32 ml/m^2 LA volume, ES, 2-p 54 ml LA volume/bsa, ES, 2-p 22 ml/m^2 LA/aortic root ratio 1.35 Mitral valve Value Reference Mitral E-wave peak velocity 1.06 m/sec Mitral A-wave peak velocity 0.99 m/sec Mitral deceleration time 220 ms 150 - 230 Mitral pressure half-time 64 ms Mitral peak gradient, D 4.5 mm Hg Mitral E/A ratio, peak 1.07 Mitral valve area, PHT, DP 3.5 cm^2 Pulmonary veins Value Reference Pulmonary vein peak velocity, S 0.51 m/sec Pulmonary vein peak velocity, D 0.54 m/sec Pulmonary vein velocity ratio, peak, 0.95 S/D Pulmonary vein A-wave reversal peak 0.41 m/sec velocity Tricuspid valve Value Reference Tricuspid regurg peak velocity 2.8 m/sec Tricuspid peak RV-RA gradient 30.3 mm Hg Right atrium Value Reference RA area, ES, A4C 13.4 cm^2 8.3 - 19.5 Legend: (L) and (H) phillip values outside specified reference range. I have personally reviewed the images and have reviewed and edited the reported findings. Electronically signed by Teena Benavidez 07/28/2019 09:38
[2019-07-28] MEDS: Glucosamine 500 MG CAP PO (08:41)
[2019-07-28] MEDS: Omega-3 Fatty Acids 1000 MG CAP PO (08:42)
[2019-07-28] MEDS: Cholecalciferol (Vitamin D3) 1,000 UNIT TAB 1000 UNITS PO (08:42)
[2019-07-28] MEDS: Lisinopril 20 MG TAB PO (08:42)
[2019-07-28] MEDS: Omeprazole 20 MG CAPCR 40 MG PO (08:42)
[2019-07-28] MEDS: PARoxetine 20 MG TAB PO (08:42)
[2019-07-28] MEDS: Ferrous Sulfate 325 MG TAB PO (08:43)
--- NOTE | 2019-07-28 09:11 | INITIAL_ITS ---
Care Management Initial Assess REASON FOR HOSPITALIZATION:: Chest pain, EKG changes PAST MEDICAL HISTORY/PAST SURGICAL HISTORY:: Crohns disease, Hypertension, Sleep apnea on CPAP, Asthma PREVIOUS FUNCTIONAL STATUS/SOCIAL/FAMILY SUPPORTS:: Nalini resides in [place], [place] with her Poncho and daughter Jaycee. She identifies spirtually as a Yarsani. She is independent at baseline in the community. CURRENT FUNCTIONAL STATUS:: Santiago was speaking with the RN when CM attempted to meet with her, she has R/O and will likely return home per MD. ADVANCE DIRECTIVES:: None on file at [facility] Has patient been provided with information about the portal?: Yes Did the patient sign up for the portal?: No CODE STATUS:: Full Code INSURANCE COVERAGE / FINANCIAL ISSUES:: Medicaid CURRENT HOME/COMMUNITY SERVICES/EQUIPMENT:: No current services or equipment. PRIMARY CARE PHYSICIAN:: Roxana Mills POTENTIAL DISCHARGE NEEDS:: Follow up appointment with PCP. PATIENT/FAMILY EDUCATION NEEDS:: Review discharge instructions, discuss Ask Me Three. ANTICIPATED BARRIERS TO DISCHARGE:: None identified. TRANSPORTATION:: Via private vehicle with her . PLAN:: Santiago will return home when ready per MD. She will follow up with her PCP and plan of care as prescribed. She will transport via private vehicle with her .
[2019-07-28] MEDS: Montelukast 10 MG TAB PO (09:12)
[2019-07-28] MEDS: Budesonide/Formoterol 80/4.5 6.9 GM 60 PUFF INH IH (09:22)
--- NOTE | 2019-07-28 10:00 | MERGEMPI_ITS ---
*[facility]* *[facility]* [address] [place] [address] Myocardial Perfusion Imaging - SPECT Layton protocol Date of study: 07/28/2019 *PATIENT PRESENTATION* Height: 167.6cm (66in) Blood Pressure: Weight: 123.9kg (272.6lb) BSA: 2.47m^2 Referring physician: Teena Benavidez Ordering physician: Leonard Maloney Impressions: Normal study after maximal exercise. Summary: 1. Myocardial perfusion imaging: No myocardial perfusion defects noted. 2. The calculated left ventricular ejection fraction after stress: 66%. LV global systolic function is normal. No left ventricular regional motion abnormality. 3. Stress: The target heart rate was achieved. Indication: R07.9. History: REASON FOR TESTING: PATIENT WAS SENT TO THE ER BY HER PCP ON 07/27/19 AFTER HAVING HAD AN EPISODE OF BILATERAL CHEST SQUEEZING (LASTED FOR 15 MINUTES) ASSOCIATED WITH SOB AND DIAPHORESIS THE NIGHT PRIOR TO ADMISSION TO THE ER. IN THE ER EKG WAS SINUS RHYTHM WITH ST DEPRESSIONS NOTED IN LEADS V4 TO V6. PATIENT WAS ADMITTED TO THE HOSPITAL FOR FURTHER EVALUATION. PATIENT DENIES CHEST DISCOMFORT UPON ARRIVAL TO TESTING TODAY. NO SIGNIFICANT PAST MEDICAL HISTORY PER PATIENT REPORT. SMOKING STATUS: NEVER. EXERCISE ROUTINE: DAILY ADL'S. PMH: Asthma. Risk factors: Family history of coronary artery disease. Hypertension. ALLERGIES: METHADONE, GOLYTELY, MERCAPTOPURINE METHYLPREDNISOLONE, TUSSIN CT--OTC. MEDICATIONS: PRILOSEC OTC 40 MG DAILY, ADVAIR DISKUS IH DAILY, XOPENEX IH PRN, MONTELUKAST 10 MG DAILY, VERAPAMIL 240 MG DAILY, IBUPROFEN 600 MG PRN, GLUCOSAMINE 500 MG DAILY, LISINOPRIL 20 MG DAILY, FISH OIL DAILY, PAROXETINE 20 MG DAILY. Imaging Technique: Protocol: Layton protocol. Acquisition: Gated SPECT; 1 day - rest/stress. The patient was imaged in the supine position. Attenuation correction used. Isotope administration: - Rest. Tc[99m]-sestamibi. Dose: 11.7mCi. Injection time: 10:40 AM. Injection to stress time: 00:45. - Stress. Tc[99m]-sestamibi. Dose: 36.5mCi. Injection time: 12:40 PM. 1-2 min before end of exercise Baseline ECG: SINUS RHYTHM. HR 68 BPM. Stress protocol: + +---+ + !Stage !HR !BP (mmHg) ! + +---+ + !Baseline supine !68 !162/90 (114) ! + +---+ + !Baseline standing !94 !154/96 (115) ! + +---+ + !Stage I; 1.7mph, 10degrees; 3 min !133!168/98 (121) ! + +---+ + !Stage II; 2.5mph, 12degrees; 3 min!141!184/108 (133)! + +---+ + !Recovery; 1 min !125!200/92 (128) ! + +---+ + !Recovery; 3 min !86 !170/100 (123)! + +---+ + !Recovery; 6 min !81 !178/102 (127)! + +---+ + !Recovery; 9 min !79 !164/106 (125)! + +---+ + !Recovery; 12 min !79 !182/104 (130)! + +---+ + * Stress results: STRESS TEST ENDED IN 6 MINUTES 1 SECOND DUE TO FATIGUE AND SOB. HYPERTENSIVE AT BASELINE. NORMAL HEART RATE AND BLOOD PRESSURE RESPONSE TO EXERCISE. MAX HEART RATE: 150. 92 % OF TARGET HEART RATE ACHIEVED. MET'S: 7.05. NO ECTOPY. NO ANGINA. NO SIGNIFICANT ST SEGMENT CHANGES. AVERAGE FUNCTIONAL CAPACITY. The target heart rate was achieved. The rate-pressure product for the peak heart rate and blood pressure was 37624gy Hg/min. Myocardial perfusion: Imaging information: gated. Left ventricular size is normal. No myocardial perfusion defects noted. Ventricular Function (Wall Motion): The calculated left ventricular ejection fraction after stress: 66%. LV global systolic function is normal. No left ventricular regional motion abnormality. Study data: Teena Benavidez MD supervised and was readily available during the procedure. This study was interpreted by [facility]. Study status: Routine. Consent: The risks, benefits, and alternatives to the procedure were explained to the patient and informed consent was obtained. Procedure: Initial setup. A baseline ECG was recorded. Surface ECG leads and manual cuff blood pressure measurements were monitored. Heart sounds: Normal. Lung sounds: Normal. Treadmill exercise testing was performed using the Layton protocol. Study completion: All catheters inserted during the procedure were removed. The patient tolerated the procedure well and was discharged from the lab. Discharge: The patient left the laboratory in stable condition. Birthdate: Patient birthdate: 1960. Sex: Gender: female. Study date: Study date: 07/28/2019. Study time: 00:01 AM. Signature Documentation: - The imaging portion of this study was interpreted by Nuclear Furnace Fitter Teena Benavidez MD. - The imaging portion of this study was interpreted by Nuclear Radiologist Clint Khan MD. - The Stress ECG portion of this study was interpreted by Teena Benavidez MD. Electronically signed by Teena Benavidez 07/28/2019 14:46
--- NOTE | 2019-07-28 11:02 | PHARADMIT ---
Admission Pharmacy Clinical Review CHEST PAIN, EKG CHANGES (Ruked Out) Code Status Full Code Current Weight Wgt-124.2 kg Renally Cleared and Narrow Therapeutic Index Meds CrCl~ 72.63 mL/min Meds-OK QTc Value / Action Taken NA BP Control, Fever BP-172/90 Electrolytes reviewed Na-141 K+3.8 Mag- 2.1 DVT Prophylaxis Lovenox Opiate Usage / Scheduled Bowel Regimen Ordered No Yes Plt/SCr for Heparin / Enoxaparin Plts-225 SCr-0.79 INR for Warfarin na H/H stable, WBC/Bands H&H- 14.9/44.7 WBC- 7.78 Antibiotic appropriateness None Cultures and Sensitivities None Surgical ABX d/c within 24 hr NA DM control / Insulin Dosing BG-103 Heart Failure (Check EF%) (ELIESER's, B-Block, Diuretics) Calan-SR, NTG, Lisiniopril, Lopressor IV, Hydralazine IV to PO Switch Yes Home Meds Reviewed Yes Home Meds Not Ordered Ordered Comments Symbicort Subst. for Advair
[2019-07-28] MEDS: Enoxaparin 40 MG/0.4 ML SYR SC (14:26)
--- NOTE | 2019-07-28 15:41 | W.PM.DS.N ---
Date of service: 07/28/19 Time of Service: 15:42 DS: Diagnosis Discharge Diagnosis (1) Chest pain: Status: Acute Discharge Plan Disposition Patient Disposition: HOME Condition: Stable Discharge Details Chief Complaint: Chest Pain Reason For Visit: CHEST PAIN, ECG CHANGES Admit Date/Time: 07/27/19 11:48 Admit Provider: Leonard Maloney Attending Provider: Leonard Maloney Primary Care Provider: Roxana Mills ED Provider: Alon Bueno Hospital Course Hospital Course: Chief Complaint: Chest Pain HPI: 58 year old woman with a history of HTN, Crohn's Disease, CINTIA, Obesity, and family history of CAD, admitted from [facility] Emergency Department on 07/27 with complaints of CP. Her pain was non-exertional, but accompanied with dyspnea and diaphoresis. She also endorsed increased levels of stress recently. Work-up in the ED included an essentially normal CBC, CMP, BNP, and initial troponin. Based on an elevated DDimer a CT of the chest was obtained and negative for PE, but with note of cardiomegally. Her ECG was reportedly non-ischemic. Following admission she ruled out for ACS with serial cardiac biomarkers, ECHO was essentially normal, and subsequent Nuclear stress test was normal as well. The patient has remained chest pain free. Of note, her blood pressure has been extremely variable, ranging in values from the 110-170's, with a few initial values as high as the 200's systolic. At time of discharge her systolic blood pressure is in the 150's, and needs to be followed up as an outpatient. Also, given her history consideration may also be given to addition of daily aspirin and statin to her medication regimen, if deemed appropriate. Home Meds and New Rx's Prescriptions: Continued fluticasone propion-salmeterol [Advair Diskus] 1 EACH blister with device 1 ea Inhalation DAILY RF: 0 verapamil 240 MG tablet extended release 240 mg PO DAILY RF: 0 montelukast 10 MG tablet 10 mg PO DAILY RF: 0 Prilosec OTC 20 MG tablet,delayed release (DR/EC) 40 mg PO DAILY RF: 0 levalbuterol tartrate [Xopenex HFA] 15 GM HFA aerosol inhaler 90 mcg Inhalation Q4H PRN RF: 0 ibuprofen 600 MG tablet 600 mg PO Q6H PRN (Reason: Pain) Qty: 20 RF: 0 glucosamine sulfate [Glucosamine] 500 mg Tablet 500 mg PO DAILY RF: 0 paroxetine HCl 20 mg Tablet 20 mg PO DAILY RF: 0 ferrous sulfate 325 mg (65 mg iron) Tablet 325 mg PO DAILY RF: 0 lisinopril 10 mg Tablet 20 mg PO DAILY RF: 0 cholecalciferol (vitamin D3) [Vitamin D3] 1,000 unit Capsule 1,000 unit PO DAILY RF: 0 cyclobenzaprine 5 mg Tablet 5 mg PO TID PRNRF: 0 omega 6-nls-nzd-fish oil [Fish Oil] 1,000 mg (120 mg-180 mg) Capsule 1 cap PO DAILY RF: 0 Discharge Instructions Activity:: Activity as Tolerated Equipment/Supplies:: No Equipment Needed Diet:: Normal Diet Discharge Orders Discharge Orders: Discharge Order (Routine); Ordered 07/28/19 Ordered By: Leonard Maloney DS: Summary Status at Discharge Functional status at discharge: independent ambulation Overall status at discharge: patient is back to baseline Mental Status: mental status grossly normal Speech and Movement: speech and movement normal Mood: congruent mood Affect: normal affect Exam Psych Mental Status: mental status grossly normal Speech and Movement: speech and movement normal Mood: congruent mood Affect: normal affect DS: Data Vitals/I&O Vitals and I&O: Vital Signs Temperature 36.8 C 07/28/19 10:26 Temperature Source Temporal Artery Scan 07/28/19 10:26 Pulse 87 07/28/19 13:13 Pulse Rhythm Regular 07/28/19 10:22 Pulse 95 H 07/28/19 13:18 Respiratory Rate 24 07/28/19 13:18 Respiratory Effort Non-Labored 07/28/19 10:22 Respiratory Depth Normal 07/28/19 10:22 Respiratory Pattern Normal 07/28/19 10:22 Blood Pressure 153/103 H 07/28/19 13:13 Blood Pressure Mean 112 07/28/19 13:13 Blood Pressure Position Supine 07/27/19 17:58 Pulse Oximetry 98 07/28/19 10:26 Oxygen Delivery Method Room Air 07/28/19 10:26 Oxygen Flow Rate 0 07/28/19 10:26 Pain Level 0 07/28/19 10:26 Intake & Output 07/27/19 07/28/19 07/28/19 23:59 11:59 23:59 Intake Total 240 / 240 Output Total 650 / 650 750 / 750 Balance -650 / -650 -750 / -510 240 / -510 Weight 124.284 kg Intake: Oral 240 / 240 Output: Urine 650 / 650 750 / 750 Other: Urine Color Yellow Yellow Urine Appearance Clear Clear Urine Odor None Voiding Methods Toilet Data Completed and Pending Completed studies during hospitalization [Text1]: Exam(s) a CT:CT chest PE CTA EXAM: CT CHEST PE CTA CLINICAL HISTORY: chest pain, SOB, elevated D-dimer. TECHNIQUE: Axial CT angiography was performed with multislice acquisition and multiplanar and/or 3D reconstructions. CT angiography of the chest was performed with a bolus infusion of 100 cc of Omnipaque 350. COMPARISON: No exams were available for comparison FINDINGS: Images obtained through the upper abdomen show unremarkable appearance of visualized portions of liver and spleen. No mediastinal or hilar adenopathy. No significant abnormality of the tracheobronchial tree. The heart is enlarged. No pericardial effusion seen. No evidence of pulmonary embolic disease. No thoracic aortic aneurysm or dissection. No pleural effusion. Lungs show mosaic attenuation but no focal consolidation is seen. This is a nonspecific finding. IMPRESSION: No evidence of pulmonary embolic disease. Cardiomegaly noted. Exam(s) a US:US echocardiogram Date of study: 07/28/2019 Transthoracic Echocardiography M-mode, complete 2D, complete spectral Doppler, and color Doppler *STUDY CONCLUSIONS* Summary: 1. Left ventricle: The cavity size was normal. Wall thickness was at the upper limits of normal. Systolic function was normal. The estimated ejection fraction was 55-60%. Wall motion was normal; there were no regional wall motion abnormalities. 2. Right ventricle: The cavity size was normal. Systolic function was normal. 3. Inferior vena cava: The vessel was patent and normal in size. The respirophasic diameter changes were in the normal range (greater than or equal to 50%), consistent with normal central venous pressure. --------- Exam(s) a NM:NM MPI rest & stress grp *[facility]* *[facility]* [address] [place] [address] Myocardial Perfusion Imaging - SPECT Layton protocol Date of study: 07/28/2019 *PATIENT PRESENTATION* Height: 167.6cm (66in) Blood Pressure: Weight: 123.9kg (272.6lb) BSA: 2.47m^2 Referring physician: Teena Benavidez Ordering physician: Leonard Maloney Impressions: Normal study after maximal exercise. Summary: 1. Myocardial perfusion imaging: No myocardial perfusion defects noted. 2. The calculated left ventricular ejection fraction after stress: 66%. LV global systolic function is normal. No left ventricular regional motion abnormality. Labs on day of discharge: Labs from last 24 hours 07/28/19 07/28/19 07/27/19 06:25 06:23 19:35 WBC 7.78 RBC 5.06 Hgb 14.9 Hct 44.7 MCV 88.3 MCH 29.4 MCHC 33.3 RDW 15.1 H Plt Count 225 MPV 9.8 Immature Gran % 0.1 Neutrophils % 53.1 Lymphocytes % 35.2 Monocytes % 8.7 Eosinophils % 2.6 Basophils % 0.3 Absolute Neutrophils 4.13 Absolute Lymphocytes 2.74 Absolute Monocytes 0.68 Absolute Eosinophils 0.20 Absolute Basophils 0.02 Sodium 141 Potassium 3.8 Chloride 104 Carbon Dioxide 27.1 Anion Gap 9.9 BUN 13 Creatinine 0.79 Estimated GFR/1.73 m2 >= 60.00 Glucose 103 H Calcium 8.8 Magnesium 2.1 Troponin I < 0.05 < 0.05 PFSH Medical History Crohns disease (Chronic) Hypertension (Chronic) Social History Smoking/Tobacco Use Status: Never Alcohol Intake: current Alcohol Intake frequency: holidays/special occasions only Drug use: Never Do you feel safe at home: Yes Do you feel safe in your relationship?: Yes
== END 2019-07-28 17:48 | disposition home or self-care (01) ==
LOC: ER 12:22 → ICU 13:11
PROVIDERS: Admitting Provider Internal Medicine; Emergency Provider Student in an Organized Health Care Education/Training Program; PCP Nurse Practitioner Family; Visit Provider Internal Medicine
DX: R07.9 Chest pain, unspecified (principal); R94.31 Abnormal electrocardiogram [ECG] [EKG]; R79.1 Abnormal coagulation profile; I10 Essential (primary) hypertension; J45.909 Unspecified asthma, uncomplicated; K50.90 Crohn's disease, unspecified, without complications; G47.33 Obstructive sleep apnea (adult) (pediatric); E66.9 Obesity, unspecified; Z68.41 Body mass index [BMI] 40.0-44.9, adult
CPT/HCPCS: 36415; 71275; 78452; 80048; 80053; 93005; 94640; 99217; 99219; 99285; J1650; 83735; 83880; 84484; 85025; 85379; 93010; 93017; 93306; G0378; J3490

== ENCOUNTER 2019-11-24 15:45 | Emergency (ER) | payer MEDICAID, SELFPAY ==
[2019-11-24] VITALS (76 sets, daily range): BP systolic 105–191; BP diastolic 70–102; PULSE 60–76; RESP 8–68; TEMP 36.7; O2SAT 80–98
--- NOTE | 2019-11-24 16:22 | W.ED.GENAD ---
Discharge Plan Disposition Condition: Improving Discharge Details Chief Complaint: Chest Pain Clinical Impression: Chest pain Primary Care Provider: Roxana Mills ED Provider: Clint Munroe Home Meds and New Rx's Prescriptions: Continued fluticasone propion-salmeterol [Advair Diskus] 1 EACH blister with device 2 ea Inhalation DAILY RF: 0 verapamil 240 MG tablet extended release 240 mg PO DAILY RF: 0 montelukast 10 MG tablet 10 mg PO DAILY RF: 0 Prilosec OTC 20 MG tablet,delayed release (DR/EC) 40 mg PO DAILY RF: 0 levalbuterol tartrate [Xopenex HFA] 15 GM HFA aerosol inhaler 90 mcg Inhalation Q4H PRN RF: 0 ibuprofen 600 MG tablet 600 mg PO Q6H PRN (Reason: Pain) Qty: 20 RF: 0 glucosamine sulfate [Glucosamine] 500 mg Tablet 500 mg PO DAILY RF: 0 paroxetine HCl 20 mg Tablet 20 mg PO DAILY RF: 0 ferrous sulfate 325 mg (65 mg iron) Tablet 325 mg PO .MO/WE/FR RF: 0 lisinopril 10 mg Tablet 20 mg PO DAILY RF: 0 cholecalciferol (vitamin D3) [Vitamin D3] 1,000 unit Capsule 1,000 unit PO DAILY RF: 0 omega 3-ekj-kkd-fish oil [Fish Oil] 1,000 mg (120 mg-180 mg) Capsule 1 cap PO DAILY RF: 0 Discharge Instructions Instructions: Chest Pain (ED) Additional Instructions: Home to rest this evening. Return if you develop recurrent chest pain, develop difficulty breathing, or any other acute concerns. Continue your regularly prescribed medications including Prilosec. I would recommend you avoid eating 2 hours prior to bedtime. Discharge Data Discharge Date/Time-TO BE ENTERED AT DEPARTURE: 11/24/19 20:10 Medical Decision Making 59-year-old female presents from home with 30 minutes of transient bandlike epigastric discomfort that dissipated on its own. Similar to previous for which she was admitted in July 2019 with unremarkable work-up and negative nuclear stress test. She arrives to the ER anxious and hypertensive but with normal oxygenation. Her exam is reassuring. Differential diagnosis includes acute coronary syndrome, anxiety, must exclude other etiologies and patient referred for laboratory testing, chest x-ray, EKG. IV access was established, patient given small amount of anxiolytic. Chest x-ray without acute findings. Laboratories reveal a white blood cell count of 7, medic at 43, platelets 240. Chemistries with sodium 142, potassium 3.4, chloride 105, bicarb 26, BUN 17, creatinine 0.7. Magnesium 1.9, LFTs unremarkable, troponin negative, lipase 125. Records reviewed include myocardial perfusion scan from July 28, 2019. Normal left ventricular ejection fraction and no perfusion defects noted. Patient remained asymptomatic, ate an evening meal, was observed on a doctor of podiatry and repeat troponin obtained and is negative. Discussed with patient home management, as well as return precautions. Both her and daughter at the bedside. She stable and improved. ECG Data Attestation: I personally reviewed and interpreted this ECG (s) as follows: Interpretation: Normal sinus rhythm, rate of 70, the QRS is narrow, no ST segment elevation present. HPI General Mode of arrival: ambulatory. Date/Time Provider Initiated Documentation: 11/24/19 16:06. Limitations to Documentation: no limitations. Information obtained by: patient. History of Present Illness 59 year old F presents to the emergency department with the chief complaint of Chest pain, now improved, similar to previous, described as moderate, Quality is described as dull, and is localized to the chest. Patient reports no radiation. Patient started experiencing this minute(s) and it has been now resolved. No relieving factors improve symptom(s), No exacerbating factors reported . Patient notes denies diaphoresis, shortness of breath and syncope. Patient did receive the following treatments prior to arrival, none Related Data Home Medications Medication Instructions Recorded Confirmed Prilosec OTC 40 mg PO DAILY NS 01/02/14 11/24/19 fluticasone propion-salmeterol 2 ea INHALATION DAILY disk NS 01/02/14 11/24/19 [Advair Diskus] levalbuterol tartrate [Xopenex HFA] 90 mcg INHALATION Q4H PRN inhaler 01/02/14 11/24/19 NS montelukast 10 mg PO DAILY tab-cap NS 01/02/14 11/24/19 verapamil 240 mg PO DAILY tab-cap NS 01/02/14 11/24/19 ibuprofen 600 mg PO Q6H PRN #20 tab 04/24/17 11/24/19 cholecalciferol (vitamin D3) 1,000 unit PO DAILY 07/27/19 11/24/19 [Vitamin D3] ferrous sulfate 325 mg PO .MO/WE/FR 07/27/19 11/24/19 glucosamine sulfate [Glucosamine] 500 mg PO DAILY 07/27/19 11/24/19 lisinopril 20 mg PO DAILY 07/27/19 11/24/19 omega 9-dmk-ncb-fish oil [Fish Oil] 1 cap PO DAILY 07/27/19 11/24/19 paroxetine HCl 20 mg PO DAILY 07/27/19 11/24/19 Previous Rx's Medication Instructions Recorded ibuprofen 600 mg PO Q6H PRN #20 tab 04/24/17 Allergies Allergy/AdvReac Type Severity Reaction Status Date / Time methadone Allergy Severe Unverified 11/24/19 16:46 polyethylene glycol Allergy Severe Unverified 11/24/19 16:46 [From Golytely] polyethylene glycol 3350 Allergy Severe Unverified 11/24/19 16:46 [From Golytely] potassium chloride* Allergy Severe Unverified 11/24/19 16:46 [From Golytely] sodium [From Golytely] Allergy Severe Unverified 11/24/19 16:46 sodium bicarbonate Allergy Severe Unverified 11/24/19 16:46 [From Golytely] sodium chloride Allergy Severe Unverified 11/24/19 16:46 [From Golytely] sodium sulfate Allergy Severe Unverified 11/24/19 16:46 [From Golytely] mercaptopurine Allergy Mild Unverified 11/24/19 16:46 methylprednisolone AdvReac Severe GI bleeding Unverified 11/24/19 16:46 [From Medrol] Tussin CF, OTC AdvReac Severe Heat Uncoded 11/24/19 16:46 reaction General Stated Complaint: Chest Pain SILVIA: 2 Review of Systems Narrative: 6 systems reviewed and otherwise negative. Notes increased stress in her life recently. No prolonged travel. No lower extremity pain or swelling. [facility] Medical History Crohns disease (Chronic) Hypertension (Chronic) Social History Smoking/Tobacco Use Status: Never Alcohol Intake: current Alcohol Intake frequency: holidays/special occasions only Drug use: Never Do you feel safe at home: Yes Do you feel safe in your relationship?: Yes Exam Narrative Exam Narrative: GEN: awake, alert, oriented 3. Pleasant, well groomed, interactive. HEAD: Normocephalic, atraumatic ENT: Mucous membranes moist, oropharynx unremarkable, External ear exam unremarkable EYES: PERRL, EOMI NECK: Full ROM, no WALT, no menigismus CHEST/RESP: Nontender, clear to auscultation bilateral, no wheeze/rhonchi/rales CARDIOVASCULAR: RRR, no murmur, rub shi. 2+ Rad pulse bilateral ABDOMEN: Soft, nontender, no mass. +Bowel sounds EXT: Full ROM, no edema, no rash Neuro: Grossly normal neurologic exam, conversant, interactive. Psych: Speech fluent, thoughts congruent, affect anxious Course Vital Signs Vital signs: Vital Signs Temperature 36.7 C 11/24/19 15:53 Pulse 71 11/24/19 15:53 Respiratory Rate 19 11/24/19 15:53 Blood Pressure 191/102 H 11/24/19 15:53 Pulse Oximetry 97 11/24/19 15:53 Temperature 36.7 C 11/24/19 15:53 Pulse 71 11/24/19 15:53 Respiratory Rate 19 11/24/19 15:53 Respiratory Effort Non-Labored 11/24/19 15:55 Blood Pressure 191/102 H 11/24/19 15:53 Blood Pressure Position Supine 11/24/19 15:53 Pulse Oximetry 97 11/24/19 15:53 Oxygen Delivery Method Room Air 11/24/19 15:53 Oxygen Flow Rate 0 11/24/19 15:53 Pain Level 0 11/24/19 15:53
[2019-11-24] MEDS: LORazepam 2 MG/ML VIAL 0.5 MG IVP (16:38)
[2019-11-24 16:41] LABS: Abs Immature Grans 0.02 k/cumm (0.0-0.09); Absolute Basophil Count 0.02 k/cumm (0.0-0.2); Absolute Eosinophil Count 0.16 k/cumm (0.0-0.7); Absolute Lymphocyte Count 2.91 k/cumm (1.2-3.4); Absolute Monocyte Count 0.58 k/cumm (0.11-0.7); Absolute Neutrophil Count 4.07 k/cumm (1.2-6.7); Basophils % 0.3; Eosinophils % 2.1; HCT 43.7 % (36.0-46.0); HGB 14.9 g/dL (12.0-15.5); Immature Grans % 0.3 %; Lymphocytes % 37.5; Mean Corp. HGB Concentration 34.1 g/dL (32.0-36.0); Mean Corpuscular Hemoglobin 30.7 pg (27.0-33.0); Mean Corpuscular Volume 89.9 fL (80-95); Mean Platelet Volume 9.8 fL (8.0-11.0); Monocytes % 7.5; Neutrophils % 52.3; Platelet Count 240 x1000/uL (130-400); RBC 4.86 m/cumm (4.00-5.20); White Blood Cell Count 7.76 k/cumm (4.4-10.8)
--- NOTE | 2019-11-24 16:47 | DI.RAD_ITS ---
EXAM: XR CHEST 2V PA LATERAL INDICATION: epigastric pain. COMPARISON: CHEST 2 VIEWS PA,LAT from 02/25/2017 TECHNIQUE: 2D digital imaging was performed. FINDINGS: The heart is mildly enlarged, unchanged. The lungs appear clear. No infiltrate, effusion or pulmona ry edema is seen. There is no evidence of free air or pneumomediastinum. No thoracic compression fr actures are seen. IMPRESSION: Stable cardiomegaly. No acute abnormality.
--- NOTE | 2019-11-24 17:02 | DI.VRAD_ITS ---
PROCEDURE INFORMATION: Exam: XR Chest, 2 Views Exam date and time: 11/24/2019 4:51 PM Age: 59 years old Clinical indication: Other: Epigastric pain TECHNIQUE: Imaging protocol: XR of the chest Views: 2 views. COMPARISON: CR CHEST 2 VIEWS PA,LAT 25/02/2017 11:45 FINDINGS: Lungs: Unremarkable. No consolidation. Pleural space: Unremarkable. No pleural effusion. No pneumothorax. Heart/Mediastinum: Cardiomegaly. Vasculature: Atherosclerotic disease. Bones/joints: Multilevel degenerative changes of the thoracic spine. IMPRESSION: No acute cardiopulmonary findings. Dictated and Authenticated by: Jennie Holcomb MD. Ordering:DANIE Jaramillo MD
[2019-11-24 17:35] LABS: ALT 28 U/L (14-59); AST 17 U/L (15-37); Albumin 3.9 g/dL (3.4-5.0); Alkaline Phosphatase 73 U/L (46-116); Anion Gap 10.2 mmol/L (3-11); BUN 17 mg/dL (7-18); Bilirubin, Total 0.4 mg/dL (0.2-1.0); CO2 26.8 mmol/L (21.0-32.0); CREATININE 0.73 mg/dL (0.55-1.02); Calcium 8.5 mg/dL (8.5-10.1); Chloride 105 mmol/L (98-107); Glucose 129 mg/dL (74-106); Lipase 125 U/L (73-393); Magnesium 1.9 mg/dL (1.8-2.4); Potassium 3.4 mmol/L (3.5-5.1); Sodium 142 mmol/L (136-145); Total Protein 7.1 g/dL (6.4-8.2); Troponin I < 0.05 ng/Ml (<0.06)
--- NOTE | 2019-11-24 17:54 | NUR.NOTE ---
1750-Dinner tray given to pt per request. Nursing Note:
[2019-11-24 20:08] LABS: Troponin I < 0.05 ng/Ml (<0.06)
== END 2019-11-24 20:10 ==
PROVIDERS: Emergency Provider Emergency Medicine; PCP Nurse Practitioner Family
DX: R07.9 Chest pain, unspecified (principal); R10.13 Epigastric pain; I10 Essential (primary) hypertension
CPT/HCPCS: 36415; 80053; 83690; 93005; 96374; 99285; 71046; 83735; 84484; 85025; 93010; 99284; J2060

== ENCOUNTER 2019-12-02 00:59 | Outpatient (CLI) | payer MEDICAID, SELFPAY ==
--- NOTE | 2019-12-02 10:46 | DI.RAD_ITS ---
EXAM: XR HIP LT COMPLETE AP PELVIS CLINICAL HISTORY: LT HIP PAIN, M25.552 TECHNIQUE: COMPARISON: BILATERAL HIPS ADULT from 03/19/2016 FINDINGS: Two views were obtained. There is narrowing of the cartilaginous joint spaces of both hips, left gre ater than right. Mild hypertrophic acetabular changes noted bilaterally, left greater than right. M ild subchondral sclerosis of the acetabular the also noted. Minimal marginal spurring of femoral hea ds noted. IMPRESSION: Moderate DJD both hips, left greater than right.
== END 2019-12-02 01:19 ==
PROVIDERS: PCP Nurse Practitioner Family; Visit Provider Nurse Practitioner Family
DX: M25.552 Pain in left hip (principal); M16.0 Bilateral primary osteoarthritis of hip
CPT/HCPCS: 73502

== ENCOUNTER 2020-04-05 14:39 | Outpatient (REF) | payer MEDICAID, SELFPAY ==
[2020-04-05 20:41] LABS: Abs Immature Grans 0.02 k/cumm (0.0-0.09); Absolute Basophil Count 0.02 k/cumm (0.0-0.2); Absolute Eosinophil Count 0.16 k/cumm (0.0-0.7); Absolute Lymphocyte Count 2.86 k/cumm (1.2-3.4); Absolute Monocyte Count 0.65 k/cumm (0.11-0.7); Basophils % 0.3; Eosinophils % 2.1; HCT 42.9 % (36.0-46.0); HGB 14.5 g/dL (12.0-15.5); Immature Grans % 0.3 %; Lymphocytes % 37.1; Mean Corp. HGB Concentration 33.8 g/dL (32.0-36.0); Mean Corpuscular Hemoglobin 30.1 pg (27.0-33.0); Mean Corpuscular Volume 89.2 fL (80-95); Mean Platelet Volume 10.7 fL (8.0-11.0); Monocytes % 8.4; Neutrophils % 51.8; Platelet Count 255 x1000/uL (130-400); RBC 4.81 m/cumm (4.00-5.20); RBC Distribution Width 14.5 % (11.7-14.6); White Blood Cell Count 7.71 k/cumm (4.4-10.8)
== END 2020-04-05 14:59 ==
LOC: NCHCN 14:39
PROVIDERS: PCP Nurse Practitioner Family; Visit Provider Nurse Practitioner Family
DX: K50.90 Crohn's disease, unspecified, without complications (principal)
CPT/HCPCS: 85025

== ENCOUNTER 2020-05-24 13:41 | Outpatient (REF) | payer MEDICAID, SELFPAY ==
[2020-05-30 15:59] LABS: SARS-CoV-2 RNA Undetected (Undetected); SARS-CoV-2 Specimen Source Nasopharynx
== END 2020-05-24 14:01 ==
LOC: NCHCN 13:41
PROVIDERS: PCP Nurse Practitioner Family; Visit Provider Nurse Practitioner Family
DX: J02.9 Acute pharyngitis, unspecified (principal); Z11.59 Encounter for screening for other viral diseases
CPT/HCPCS: U0003

== ENCOUNTER 2020-06-22 15:28 | Outpatient (REF) | payer MEDICAID, SELFPAY | END 2020-06-22 15:48 | LOC: NCHCN 15:28 | PROVIDERS: PCP Nurse Practitioner Family; Visit Provider Family Medicine | DX: R30.0 Dysuria (principal) | CPT/HCPCS: 87086 ==

== ENCOUNTER 2020-08-09 02:35 | Outpatient (CLI) | payer MEDICAID, SELFPAY ==
--- NOTE | 2020-08-09 | DI.MAMMO_ITS ---
EXAM: MAMMO SCREENING CLINICAL HISTORY: SCREENING,Z12.31 TECHNIQUE: Mammograms were interpreted according to the usual protocol including computer analysis w [employer] CAD system, tomosynthesis and C-view imaging. COMPARISON: 2009 through 2018 FINDINGS: The breasts are composed of scattered fibroglandular densities, Breast Density category B. No suspicious masses or suspicious microcalcifications are seen. Mild vascular calcifications are in cidentally noted. No skin thickening or abnormal axillary lymph nodes are seen. There has been no significant change from prior exams. IMPRESSION: BI-RADS Category 1, Negative mammogram Yearly screening mammography is recommended. Breast Density - Category B, scattered fibroglandular densities. A negative radiographic report should not delay biopsy if a dominant or clinically suspicious mass is present. Up to ten percent of cancers are not identified on mammography. A negative report may reinforce clinical impression. Adenosis and dense breasts may obscure an underlying neoplasm. False positive reports average 6 to 10%. Patient will receive a letter notifying them of these results.
== END 2020-08-09 02:55 ==
PROVIDERS: PCP Nurse Practitioner Family; Visit Provider Family Medicine
DX: Z12.31 Encounter for screening mammogram for malignant neoplasm of breast (principal)
CPT/HCPCS: 77063; 77067

== ENCOUNTER 2020-09-10 19:40 | Outpatient (REF) | payer MEDICAID, SELFPAY ==
[2020-09-10 21:19] LABS: MCH 30.1 pg (27.0-33.0); MCHC 32.6 % (32.0-36.0); MCV 92.5 fL (80-95); MPV 10.8 fL (8.0-11.0); Platelet Count 221 10^3/uL (130-400); RBC 4.65 10^6/uL (3.93-5.22); RDW 13.4 % (11.7-14.6); RDW-SD 46.1 fL; WBC 7.77 10^3/uL (4.4-10.8)
[2020-09-10 21:31] LABS: ALT 24 U/L (14-59); AST 15 U/L (15-37); Albumin 3.8 g/dL (3.4-5.0); Alkaline Phosphatase 78 U/L (46-116); Anion Gap 6.4 mmol/L (3-11); BUN 14 mg/dL (7-18); Bilirubin, Total 0.3 mg/dL (0.2-1.0); CO2 29.6 mmol/L (21.0-32.0); CREATININE 0.73 mg/dL (0.55-1.02); Calcium 8.3 mg/dL (8.5-10.1); Calculated LDL 97 mg/dL (<100); Chloride 105 mmol/L (98-107); Cholesterol 183 mg/dL (<200); Glucose 98 mg/dL (74-106); HDL Cholesterol 64 mg/dL (40-60); Potassium 4.1 mmol/L (3.5-5.1); Sodium 141 mmol/L (136-145); Total Protein 6.6 g/dL (6.4-8.2); Triglyceride 114 mg/dL (<150)
[2020-09-10 21:45] LABS: Hemoglobin A1C 5.7 % (<5.7)
[2020-09-10 22:02] LABS: ESR 8 mm/hr (0-30)
== END 2020-09-10 20:00 ==
LOC: NCHCN 19:40
PROVIDERS: PCP Nurse Practitioner Family; Visit Provider Family Medicine
DX: Z00.00 Encounter for general adult medical examination without abnormal findings (principal); R73.03 Prediabetes; R53.83 Other fatigue
CPT/HCPCS: 80053; 80061; 85027; 85652; 83036

== ENCOUNTER 2021-03-19 03:31 | Outpatient (CLI) | payer MEDICAID, SELFPAY ==
[2021-03-19 14:38] LABS: ESR 2 mm//hr (0-30)
[2021-03-19 14:39] LABS: Abs Immature Grans 0.02 10^3/uL (0.0-0.06); Absolute Basophil Count 0.06 10^3/uL (0.0-0.2); Absolute Eosinophil Count 0.23 10^3/uL (0.0-0.7); Absolute Lymphocyte Count 3.03 10^3/uL (1.2-3.4); Absolute Monocyte Count 0.74 10^3/uL (0.1-0.8); Absolute Neutrophil Count 3.88 10^3/uL (1.2-6.7); Basophils % 0.8; Eosinophils % 2.9; HCT 42.9 % (36.0-46.0); HGB 14.2 g/dL (11.2-15.7); Immature Grans % 0.3; Lymphocytes % 38.1; MCH 29.7 pg (27.0-33.0); MCHC 33.1 % (32.0-36.0); MCV 89.7 fL (80-95); Monocytes % 9.3; Neutrophils % 48.6; Nucleated RBC 0 %; Platelet Count 235 10^3/uL (130-400); RBC 4.78 10^6/uL (3.93-5.22); RDW 13.7 % (11.7-14.6); RDW-SD 44.8 fL; WBC 7.96 10^3/uL (4.4-10.8)
[2021-03-19 15:28] LABS: ALT 27 U/L (14-59); AST 16 U/L (15-37); Alkaline Phosphatase 78 U/L (46-116); Anion Gap 9.4 mmol/L (3-11); BUN 13 mg/dL (7-18); Bilirubin, Direct 0.1 mg/dL (0.0-0.2); Bilirubin, Total 0.4 mg/dL (0.2-1.0); C-Reactive Protein 0.16 mg/dL (0.0-0.3); CO2 28.6 mmol/L (21.0-32.0); CREATININE 0.7 mg/dL (0.55-1.02); Calcium 8.3 mg/dL (8.5-10.1); Calculated LDL 54 mg/dL (<100); Chloride 106 mmol/L (98-107); Cholesterol 185 mg/dL (<200); Glucose 124 mg/dL (74-106); HDL Cholesterol 74 mg/dL (40-60); Potassium 4.1 mmol/L (3.5-5.1); Sodium 144 mmol/L (136-145); Total Protein 6.9 g/dL (6.4-8.2); Triglyceride 287 mg/dL (<150)
[2021-03-21 17:13] LABS: Adalimumab QN with Reflex Ab 11.2 mcg/mL
== END 2021-03-19 03:32 | disposition home or self-care (01) ==
LOC: LBO 03:31
PROVIDERS: Family Medicine; PCP Nurse Practitioner Family; Visit Provider Internal Medicine Gastroenterology
DX: I10 Essential (primary) hypertension (principal); R73.03 Prediabetes; R53.83 Other fatigue; K50.818 Crohn's disease of both small and large intestine with other complication
CPT/HCPCS: 36415; 80053; 80061; 80076; 83520; 85652; 85025; 86140

== ENCOUNTER 2021-06-02 14:56 | Emergency (ER) | payer MEDICAID, SELFPAY ==
[2021-06-02] VITALS (49 sets, daily range): BP systolic 134–197; BP diastolic 74–103; PULSE 58–76; RESP 12–28; TEMP 36.3; O2SAT 92–98
--- NOTE | 2021-06-02 14:45 | RT.EKG_ITS ---
APPROVED REPORT Exam: Resting ECG Reason for Exam: CHEST PAIN Patient Location: E HR:71 bpm ECG Measurements Heart Rate 71 AXIS IA 162 P 42 QRSd 82 QRS -3 QT 379 T 19 QTc 413 Conclusion Sinus rhythm...normal P axis, V-rate 60- 99 Inferior infarct, old...Q >35mS, II III aVF
--- NOTE | 2021-06-02 15:15 | DI.CT_ITS ---
Exam(s) CT CHEST PE CTA EXAM: CT CHEST PE CTA CLINICAL HISTORY: sudden CP and SOB. TECHNIQUE: Imaging Protocol: CT angiography of the chest was performed using pulmonary embolus swetha col. Multi planar reconstructions were performed. CONTRAST MATERIAL: Intravenous: Omnipaque 350 Contrast volume: 100 cc COMPARISON: CT CT CHEST PE CTA from 07/27/2019 FINDINGS: CHEST: PULMONARY ARTERIES: There are no intraluminal filling defects to suggest acute pulmonary emboli. LUNGS: There are bilateral patchy ground-glass pattern in both lung swenson which exhibits very little if any significant change compared to the prior study of July 2019. No associated air bronchog tamar. There are no pleural effusions. MEDIASTINUM: There is no hilar nor mediastinal adenopathy. Visualized thyroid unremarkable.There is m oderate size retrocardiac hiatal hernia which measures 5 cm wide by 3 cm AP P by 3.5 cm craniocaudal. CARDIAC: There is cardiomegaly again noted. No pericardial effusion. No shift of the interventricul ar septum nor significant reflux of injected contrast into the intrahepatic veins.Caliber of the thor acic aorta is within normal limits. PARTIALLY VISUALIZED UPPERMOST ABDOMEN: Hepatic steatosis calcified granulomas noted in the liver. N o adrenal mass. No splenomegaly. OSSEOUS: No significant osseous lesions.. IMPRESSION: 1. No evidence of acute pulmonary emboli. No evidence of pulmonary infarction.No pleural effusions. 2. Patchy bilateral ground-glass attenuation in both lung swenson is unchanged from the prior study 2018. 3. Cardiomegaly. No pericardial effusion. Coronary artery calcifications evident. Moderate size esophageal hernia noted. RADIATION DOSE DELIVERED: 751.06mGy.cm Total DLP DATA REPOSITORY: All CT scans at this facility are submitted to the National Radiology Data Registry (NRDR) Dose Index Registry (DIR) with the [employer] (ACR). RADIATION OPTIMIZATION: All CT scans at this facility use at least one of these dose optimization te chniques: automated exposure control; mA and/or kV adjustment per patient size (includes targeted exa ms where dose is matched to clinical indication); or iterative reconstruction.
--- NOTE | 2021-06-02 15:26 | W.ED.GENAD ---
Discharge Plan Disposition Patient Disposition: HOME Condition: Stable Discharge Details Clinical Impression: Chest pain Primary Care Provider: Alida Adams ED Provider: Alon Bueno Home Meds and New Rx's Prescriptions: Continued fluticasone propion-salmeterol [Advair Diskus] 1 EACH blister with device 2 ea Inhalation DAILY RF: 0 verapamil 240 MG tablet extended release 240 mg PO DAILY RF: 0 montelukast 10 MG tablet 10 mg PO DAILY RF: 0 omeprazole magnesium [Prilosec OTC] 20 MG tablet,delayed release (DR/EC) 40 mg PO DAILY RF: 0 levalbuterol tartrate [Xopenex HFA] 15 GM HFA aerosol inhaler 90 mcg Inhalation Q4H PRN RF: 0 ibuprofen 600 MG tablet 600 mg PO Q6H PRN (Reason: Pain) Qty: 20 RF: 0 glucosamine sulfate [Glucosamine] 500 mg Tablet 500 mg PO DAILY RF: 0 paroxetine HCl 20 mg Tablet 20 mg PO DAILY RF: 0 lisinopril 10 mg Tablet 20 mg PO DAILY RF: 0 cholecalciferol (vitamin D3) [Vitamin D3] 1,000 unit Capsule 1,000 unit PO DAILY RF: 0 omega 9-ouv-orn-fish oil [Fish Oil] 1,000 mg (120 mg-180 mg) Capsule 1 cap PO DAILY RF: 0 Humira(CF) Pen 40 mg/0.4 mL pen injector kit 40 mg SUBCUT Q14D RF: 0 ginkgo biloba 500 mg Capsule 500 mg PO DAILY RF: 0 Discharge Instructions Instructions: Chest Pain (ED) Additional Instructions: Please take aspirin 81 mg daily. You should have a stress test of your heart performed this week ideally in the next 72 hours. Please contact your primary care physician to arrange follow-up. Call tomorrow. Return to the ER immediately for any worsening or new concerning symptoms. Referrals: Alida Adams [Primary Care Provider] - Discharge Data Discharge Date/Time-TO BE ENTERED AT DEPARTURE: 06/02/21 19:30 Medical Decision Making 7052 -- 60-year-old female with history of Crohn's disease, asthma, hypertension, GERD, here after episode of chest pain that occurred just prior to arrival and was brief lasting 5 to 10 minutes. Consider ACS. Screening ECG was reviewed and interpreted by me: Please report, sinus rhythm, no STEMI, nondiagnostic. Plan to check troponin. Patient is hypertensive here today -likely stress-induced. Consider pulmonary embolism and aortic dissection. Plan to obtain CTA of the chest. --Initial troponin negative. CT of the chest abdomen pelvis interpreted by radiology: IMPRESSION: 1. No pulmonary embolism identified 2. Patchy ground-glass attenuation consistent with either air trapping or edema 3. Moderate esophageal hiatal hernia 4. Cardiomegaly with coronary artery calcifications. Aorta unremarkable with no aortic aneurysm and no aortic dissection. Patient reassessed and is remained pain-free and feeling well with no shortness of breath. --Repeat EKG reviewed and interpreted by me: Please see report, no change from prior, nondiagnostic. 1918 --second troponin negative, unchanged from prior. Patient has had no recurrent episode of chest pain here in the emergency department. I will have the patient follow-up with her primary care physician and schedule a stress test. Patient was encouraged to return immediately for any worsening or new concerning symptoms. Medical Records Medical records reviewed: Yes I reviewed the patient's medical records. Medical records narrative: I did review stress test from 2019: 1. Myocardial perfusion imaging: No myocardial perfusion defects noted. 2. The calculated left ventricular ejection fraction after stress: 66%. LV global systolic function is normal. No left ventricular regional motion abnormality. 3. Stress: The target heart rate was achieved. HPI General Mode of arrival: ambulatory. Date/Time Provider Initiated Documentation: 06/02/21 15:10. Limitations to Documentation: no limitations. Information obtained by: patient. HPI Narrative: 60-year-old female with history of Crohn's disease, asthma and hypertension presents with chief complaint of chest pain. Patient notes she was driving when she suddenly had onset of squeezing retrosternal chest pain that was severe and lasted approximately 5 to 10 minutes before resolving. Pain did not radiate. She had associated shortness of breath during the episode. Patient does note she took a puff of her Xopenex and discomfort then resolved. She has no associated leg swelling or calf pain. She did recently drive down to [facility]. Patient is concerned that symptoms were gastrointestinal in etiology. Related Data Home Medications Medication Instructions Recorded Confirmed fluticasone propion-salmeterol 2 ea INHALATION DAILY disk NS 01/02/14 06/02/21 [Advair Diskus] levalbuterol tartrate [Xopenex HFA] 90 mcg INHALATION Q4H PRN inhaler 01/02/14 06/02/21 NS montelukast 10 mg PO DAILY tab-cap NS 01/02/14 06/02/21 omeprazole magnesium [Prilosec OTC] 40 mg PO DAILY NS 01/02/14 06/02/21 verapamil 240 mg PO DAILY tab-cap NS 01/02/14 06/02/21 ibuprofen 600 mg PO Q6H PRN #20 tab 04/24/17 06/02/21 cholecalciferol (vitamin D3) 1,000 unit PO DAILY 07/27/19 06/02/21 [Vitamin D3] glucosamine sulfate [Glucosamine] 500 mg PO DAILY 07/27/19 06/02/21 lisinopril 20 mg PO DAILY 07/27/19 06/02/21 omega 5-fcx-dbk-fish oil [Fish Oil] 1 cap PO DAILY 07/27/19 06/02/21 paroxetine HCl 20 mg PO DAILY 07/27/19 06/02/21 Humira(CF) Pen 40 mg SUBCUT Q14D 06/02/21 06/02/21 ginkgo biloba 500 mg PO DAILY 06/02/21 06/02/21 Previous Rx's Medication Instructions Recorded ibuprofen 600 mg PO Q6H PRN #20 tab 04/24/17 Allergies Allergy/AdvReac Type Severity Reaction Status Date / Time methadone Allergy Severe Unverified 06/02/21 15:08 polyethylene glycol Allergy Severe Unverified 06/02/21 15:08 [From Golytely] polyethylene glycol 3350 Allergy Severe Unverified 06/02/21 15:08 [From Golytely] potassium chloride* Allergy Severe Unverified 06/02/21 15:08 [From Golytely] sodium [From Golytely] Allergy Severe Unverified 06/02/21 15:08 sodium bicarbonate Allergy Severe Unverified 06/02/21 15:08 [From Golytely] sodium chloride Allergy Severe Unverified 06/02/21 15:08 [From Golytely] sodium sulfate Allergy Severe Unverified 06/02/21 15:08 [From Golytely] mercaptopurine Allergy Mild Unverified 06/02/21 15:08 methylprednisolone AdvReac Severe GI bleeding Unverified 06/02/21 15:08 [From Medrol] Tussin CF, OTC AdvReac Severe Heat Uncoded 06/02/21 15:08 reaction General Stated Complaint: Chest Pain SILVIA: 2 Review of Systems All systems reviewed & are unremarkable except as noted in HPI and below Constitutional Constitutional: Denies fever(s) Cardiovascular Cardiovascular: Reports as per HPI Respiratory Respiratory: Reports as per HPI [facility] Medical History (Updated 06/02/21 @ 19:19 by Alon Bueno MD) Crohns disease Hypertension Social History Smoking/Tobacco Use Status: Never Smoking risk assessment performed?: Yes Alcohol Intake: current Alcohol Intake frequency: holidays/special occasions only Drug use: Never Do you feel safe at home: Yes Do you feel safe in your relationship?: Yes Exam Const General: cooperative and no acute distress HENMT Head: normocephalic and atraumatic Mouth: moist mucous membranes Eyes Conjunctivae: normal conjunctivae Sclera: normal sclerae Neck Neck: trachea midline and supple Resp Auscultation: clear to auscultation bilaterally, no rales, no rhonchi and no wheezes Cardio Rate: regular rate and not tachycardic Rhythm: regular rhythm Heart Sounds: murmur systolic I/ GI Palpation: soft, not firm, no guarding, no masses, not rigid and nontender Skin General skin exam: no rashes or lesions noted Neuro General: patient alert, patient awake, patient oriented x3 and tone normal Extrem General: no calf tenderness and no edema Psych Appearance: grossly normal Mental Status: mental status grossly normal Speech and Movement: speech and movement normal Course Vital Signs Vital signs: Vital Signs Temperature 36.3 C L 06/02/21 15:02 Pulse 71 06/02/21 15:02 Respiratory Rate 17 06/02/21 15:02 Blood Pressure 191/101 H 06/02/21 15:02 Pulse Oximetry 98 06/02/21 15:02 Temperature 36.3 C L 06/02/21 15:02 Temperature Source Skin 06/02/21 15:02 Pulse 71 06/02/21 15:17 Pulse 75 06/02/21 15:20 Respiratory Rate 13 06/02/21 15:20 Respiratory Effort Non-Labored 06/02/21 15:15 Respiratory Depth Normal 06/02/21 15:15 Respiratory Pattern Normal 06/02/21 15:15 Blood Pressure 197/99 H 06/02/21 15:17 Blood Pressure Mean 123 06/02/21 15:17 Blood Pressure Position Supine 06/02/21 15:02 Pulse Oximetry 98 06/02/21 15:20 Oxygen Delivery Method Room Air 06/02/21 15:02 Oxygen Flow Rate 0 06/02/21 15:02 Pain Level 2 06/02/21 15:15
[2021-06-02 15:39] LABS: Abs Immature Grans 0.03 10^3/uL (0.0-0.06); Absolute Basophil Count 0.03 10^3/uL (0.0-0.2); Absolute Eosinophil Count 0.21 10^3/uL (0.0-0.7); Absolute Lymphocyte Count 3.13 10^3/uL (1.2-3.4); Absolute Monocyte Count 0.77 10^3/uL (0.1-0.8); Absolute Neutrophil Count 4.84 10^3/uL (1.2-6.7); Basophils % 0.3; Eosinophils % 2.3; HCT 43.9 % (36.0-46.0); HGB 14.3 g/dL (11.2-15.7); Immature Grans % 0.3; Lymphocytes % 34.7; MCH 29.2 pg (27.0-33.0); MCHC 32.6 % (32.0-36.0); MCV 89.8 fL (80-95); MPV 9.8 fL (8.0-11.0); Monocytes % 8.5; Neutrophils % 53.9; Nucleated RBC 0 %; Platelet Count 245 10^3/uL (130-400); RBC 4.89 10^6/uL (3.93-5.22); RDW 13.9 % (11.7-14.6); RDW-SD 46.1 fL; WBC 9.01 10^3/uL (4.4-10.8)
[2021-06-02 15:52] LABS: ALT 31 U/L (14-59); AST 8 U/L (15-37); Albumin 3.9 g/dL (3.4-5.0); Alkaline Phosphatase 77 U/L (46-116); Anion Gap 6.9 mmol/L (3-11); BUN 14 mg/dL (7-18); Bilirubin, Total 0.3 mg/dL (0.2-1.0); CO2 30.1 mmol/L (21.0-32.0); CREATININE 0.8 mg/dL (0.55-1.02); Calcium 8.7 mg/dL (8.5-10.1); Chloride 105 mmol/L (98-107); Glucose 123 mg/dL (74-106); Potassium 3.8 mmol/L (3.5-5.1); Sodium 142 mmol/L (136-145); Total Protein 7.2 g/dL (6.4-8.2)
[2021-06-02 16:01] LABS: Troponin I < 0.05 ng/mL (<0.06)
[2021-06-02] MEDS: Omnipaque 350 MG/ML 100 ML BTL IJ (16:22)
[2021-06-02] MEDS: Normal Saline - Diluent 50 ML VIAL IV (16:24)
--- NOTE | 2021-06-02 16:42 | DI.VRAD_ITS ---
PROCEDURE INFORMATION: Exam: CTA Chest With Contrast Exam date and time: 06/02/2021 3:26 PM Age: 60 years old Clinical indication: Shortness of breath TECHNIQUE: Imaging protocol: Computed tomographic angiography of the chest with contrast. 3D rendering (Not supervised by radiologist): MIP and/or 3D reconstructed images were created by the technologist. COMPARISON: CT CHEST PE CTA 07/27/2019 12:40 PM FINDINGS: Pulmonary arteries: Suboptimal opacification of the pulmonary arteries. No filling defects are identified to suggest the presence of pulmonary embolism. Aorta: Unremarkable. No aortic aneurysm. No aortic dissection. Lungs: Patchy ground-glass attenuation in both lungs could be due to areas of air trapping or interstitial edema. Pleural spaces: Unremarkable. No pneumothorax. No pleural effusion. Heart: Cardiomegaly. Mediastinal space: Moderate esophageal hiatal hernia. Lymph nodes: Unremarkable. No enlarged lymph nodes. Liver: Calcified hepatic granulomata. Bones/joints: Degenerative arthritis in the spine and shoulders. Soft tissues: Unremarkable. IMPRESSION: 1. No pulmonary embolism identified 2. Patchy ground-glass attenuation consistent with either air trapping or edema 3. Moderate esophageal hiatal hernia 4. Cardiomegaly with coronary artery calcifications. Dictated and Authenticated by: Nicole Villatoro MD. Ordering:JAZMIN Chi MD
--- NOTE | 2021-06-02 18:00 | RT.EKG_ITS ---
APPROVED REPORT Exam: Resting ECG Reason for Exam: chest pain Patient Location: E HR:63 bpm ECG Measurements Heart Rate 63 AXIS AL 164 P 49 QRSd 87 QRS 5 QT 403 T 29 QTc 412 Conclusion Sinus rhythm...normal P axis, V-rate 60- 99 Physician: no stemi
[2021-06-02 19:17] LABS: Troponin I < 0.05 ng/mL (<0.06)
== END 2021-06-02 19:30 | disposition home or self-care (01) ==
PROVIDERS: Emergency Provider Student in an Organized Health Care Education/Training Program; PCP Nurse Practitioner Family
DX: R07.9 Chest pain, unspecified (principal); R06.02 Shortness of breath
CPT/HCPCS: 36415; 71275; 80053; 93005; 99285; 84484; 85025; 93010; 99284; J3490

== ENCOUNTER 2021-06-04 01:50 | Outpatient (CLI) | payer MEDICAID, SELFPAY ==
--- NOTE | 2021-06-04 15:00 | ETT_ITS ---
APPROVED REPORT Exam: Exercise Treadmill Patient Location: Out-Patient Room/Bed: Stress Nurse: Nora Steinberg RN Ordering Provider:REHAN RODRIGUES, Contact Number: [phone] BMI: 43.57 Baseline Rhythm: Sinus Rhythm Indications: Chest pain Medical History Medical History: Hypertension, asthma, family hx, obesity Cardiac Medications: Lisinopril, verapamil, levalbuterol tartrate, advair, prilosec humir, ginkgo ricardo oba Allergies: methadone, golytely, mercaptopurine, medrol Cardiac Risk Factors: Hypertension, asthma, family hx, obesity Previous Cardiac Procedures: None Pretest Chest Pain Characteristics: None Exercise History: Sedentary Physical Disabilities: None Lung Sounds: Clear to auscultation Heart Sounds: Regular Stress Test Details Test: Exercise stress testing was performed using a Layton protocol. Rest Stress HR Resting HR Supine: 65 bpm Max Heart Rate (APMHR): 161 bpm Resting HR Standin bpm Target HR (85% APMHR): 136 bpm Max HR Achieved: 145 bpm % of APMHR: 90 Recovery HR: 72 bpm HR response to stress: Accelerated HR response to stress BP Resting BP Supine: 158/90 mmHg Resting BP Standin/84 mmHg Max BP: 200/98 mmHg Recovery BP: 148/88 mmHg BP response to stress: Abnormal hypertensive response to stress. ECG Resting ECG: Sinus Rhythm Ectopy: None Stress ECG: Sinus Tachycardia ST Change: No significant ST segment changes noted Arrhythmia: None Recovery ECG: Sinus Rhythm Recovery ST Change: No significant ST segment changes noted Recovery Arrhythmia: None Clinical Reason for Termination: Fatigue Stress Symptoms: General Fatigue, Headache Exercise duration: 3 min22 sec Highest Stage Reached: Stage 2: 2.5 mph at 12% grade. Exercise capacity: 5.06 METs Cotton Treadmill Score: 3 Rate Pressure Product: [id number] Stress ECG Conclusion 1. The patient exercised for 3 minutes 22 seconds (5 METS). Exercise was stopped due to fatigue. 2. The patient's blood pressure and heart rate augmented appropriately. 3. There was no evidence of ischemia on the ECG portion of the exam nor any symptoms suggestive of is chemia. Cotton Treadmill Score is 3 which is Moderate risk. Stress Test Summary STAGE Time (mins) Speed (mph) Grade (%) HR BP SYMPTOMS METS Supine 65 158/90 Standing 74 150/84 SpO2 93% 1 3 1.7 10 138 170/90 SpO2 93% 4.6 2 6 2.5 12 143 SpO2 92%, mild/moderate SOB, SIFUENTES 0.5/10 7 1 min recovery 98 200/98 SpO2 95%, symptoms resolved 3 min recovery 74 188/88 6 min recovery 79 172/92 9 min recovery 72 148/88
== END 2021-06-04 02:10 ==
PROVIDERS: PCP Nurse Practitioner Family; Visit Provider Student in an Organized Health Care Education/Training Program
DX: R07.9 Chest pain, unspecified (principal); I25.10 Atherosclerotic heart disease of native coronary artery without angina pectoris; R06.02 Shortness of breath; I20.8 Other forms of angina pectoris; I50.9 Heart failure, unspecified; I10 Essential (primary) hypertension; Z82.49 Family history of ischemic heart disease and other diseases of the circulatory system; J45.901 Unspecified asthma with (acute) exacerbation; E66.9 Obesity, unspecified
CPT/HCPCS: 93017

== ENCOUNTER 2021-06-07 03:52 | Outpatient (CLI) | payer MEDICAID, SELFPAY ==
--- NOTE | 2021-06-07 | DI.RAD_ITS ---
Exam(s) XR HIP PELVIS ADULT BL EXAM: XR HIP PELVIS ADULT BL CLINICAL HISTORY: LT HIP CYST, L72.9,RT HIP PAIN, M25.551. TECHNIQUE: 2D digital imaging was performed. COMPARISON: No exams were available for comparison FINDINGS: BONES: No acute fracture is present. No bony destructive lesion is seen. Subchondral cysts are seen i n the left acetabulum and left humeral head. JOINTS: No dislocation present. There are degenerative changes in the hips bilaterally. Mild degener ative changes are seen in the right and [id number] degenerative changes are seen in the left. SOFT TISSUE: Normal. IMPRESSION: Bilateral osteoarthritis of the hips. DATA REPOSITORY: RADIATION DOSE DELIVERED:
== END 2021-06-07 04:12 ==
PROVIDERS: PCP Nurse Practitioner Family; Visit Provider Nurse Practitioner Family
DX: M16.0 Bilateral primary osteoarthritis of hip (principal); L72.9 Follicular cyst of the skin and subcutaneous tissue, unspecified
CPT/HCPCS: 73521

== ENCOUNTER 2021-11-29 11:56 | Outpatient (REF) | payer MEDICAID, SELFPAY ==
[2021-11-29 15:40] LABS: HCT 43.3 % (36.0-46.0); HGB 14.1 g/dL (11.2-15.7); MCH 28.7 pg (27.0-33.0); MCHC 32.6 % (32.0-36.0); MCV 88.2 fL (80-95); MPV 10.7 fL (8.0-11.0); Platelet Count 232 10^3/uL (130-400); RBC 4.91 10^6/uL (3.93-5.22); RDW 14.4 % (11.7-14.6); RDW-SD 46.5 fL; WBC 7.77 10^3/uL (4.4-10.8)
[2021-11-29 15:55] LABS: Anion Gap 9.3 mmol/L (3-11); BUN 15 mg/dL (7-18); CO2 28.7 mmol/L (21.0-32.0); CREATININE 0.7 mg/dL (0.55-1.02); Calcium 8.3 mg/dL (8.5-10.1); Chloride 103 mmol/L (98-107); Glucose 112 mg/dL (74-106); Potassium 3.6 mmol/L (3.5-5.1); Sodium 141 mmol/L (136-145)
== END 2021-11-29 11:57 | disposition home or self-care (01) ==
LOC: NCHCN 11:56
PROVIDERS: PCP Nurse Practitioner Family; Visit Provider Nurse Practitioner Family
DX: Z01.818 Encounter for other preprocedural examination (principal)
CPT/HCPCS: 80048; 85027

== ENCOUNTER 2022-06-17 14:51 | Outpatient (REF) | payer MEDICAID, SELFPAY | END 2022-06-17 14:52 | disposition home or self-care (01) | LOC: NCHCN 14:51 | PROVIDERS: PCP Nurse Practitioner Family; Visit Provider Nurse Practitioner Family | DX: Z87.440 Personal history of urinary (tract) infections (principal) | CPT/HCPCS: 87077; 87086; 87186 ==

== ENCOUNTER 2022-06-23 14:59 | Outpatient (REF) | payer MEDICAID, SELFPAY ==
[2022-06-23 19:30] LABS: ALT 30 U/L (14-59); AST 24 U/L (15-37); Albumin 3.9 g/dL (3.4-5.0); Alkaline Phosphatase 75 U/L (46-116); Anion Gap 10.2 mmol/L (3-11); BUN 15 mg/dL (7-18); Bilirubin, Total 0.3 mg/dL (0.2-1.0); C-Reactive Protein 0.11 mg/dL (0.0-0.3); CO2 26.8 mmol/L (21.0-32.0); CREATININE 0.7 mg/dL (0.55-1.02); Calcium 8.4 mg/dL (8.5-10.1); Chloride 105 mmol/L (98-107); Glucose 139 mg/dL (74-106); Potassium 4.1 mmol/L (3.5-5.1); Sodium 142 mmol/L (136-145); Total Protein 7.1 g/dL (6.4-8.2)
== END 2022-06-23 15:00 | disposition home or self-care (01) ==
LOC: NCHCN 14:59
PROVIDERS: PCP Nurse Practitioner Family; Visit Provider Family Medicine
DX: R10.9 Unspecified abdominal pain (principal)
CPT/HCPCS: 80053; 85652; 85025; 86140

== ENCOUNTER 2022-06-26 04:09 | Outpatient (CLI) | payer MEDICAID, SELFPAY ==
[2022-06-26 12:57] LABS: Abs Immature Grans 0.04 10^3/uL (0.0-0.06); Absolute Basophil Count 0.05 10^3/uL (0.0-0.2); Absolute Lymphocyte Count 2.34 10^3/uL (1.2-3.4); Absolute Monocyte Count 0.63 10^3/uL (0.1-0.8); Absolute Neutrophil Count 3.88 10^3/uL (1.2-6.7); Basophils % 0.7; Eosinophils % 2.8; HCT 41.7 % (36.0-46.0); HGB 13.8 g/dL (11.2-15.7); Immature Grans % 0.6; Lymphocytes % 32.8; MCH 29.4 pg (27.0-33.0); MCHC 33.1 % (32.0-36.0); MCV 89 fL (80-95); MPV 9.6 fL (8.0-11.0); Monocytes % 8.8; Neutrophils % 54.3; Platelet Count 222 10^3/uL (130-400); RBC 4.69 10^6/uL (3.93-5.22); RDW-SD 45.1 fL; WBC 7.14 10^3/uL (4.4-10.8)
[2022-06-26 13:02] LABS: ESR < 1 mm/hr (0-30)
== END 2022-06-26 04:10 | disposition home or self-care (01) ==
LOC: LBO 04:09
PROVIDERS: PCP Nurse Practitioner Family; Visit Provider Family Medicine
DX: R10.9 Unspecified abdominal pain (principal)
CPT/HCPCS: 36415; 85652; 85025

== ENCOUNTER 2022-07-26 16:02 | Emergency (ER) | payer MEDICAID, SELFPAY ==
[2022-07-26 16:14] VITALS: BP 188/119; PULSE 75; RESP 18; TEMP 37.1; O2SAT 97
--- NOTE | 2022-07-26 16:15 | RT.EKG_ITS ---
APPROVED REPORT Exam: Resting ECG Reason for Exam: stroke symptoms Patient Location: E HR:74 bpm ECG Measurements Heart Rate 74 AXIS AZ 168 P 42 QRSd 82 QRS -9 QT 387 T 11 QTc 429 Conclusion Sinus rhythm...normal P axis, V-rate 60- 99 Inferior infarct, old...Q >35mS, II III aVF. Sinus. No STEMI. I have reviewed and interpreted ECG and agree with software generated interpretation.
--- NOTE | 2022-07-26 16:31 | ED.GENADUL_ITS ---
Discharge Plan Disposition Patient Disposition: HOME Condition: Stable Discharge Details Clinical Impression: Muscle spasm Primary Care Provider: Alida Adams ED Provider: Edwige Dooley Home Meds and New Rx's Prescriptions: Continued fluticasone propion-salmeterol [Advair Diskus] 1 EACH blister with device 2 ea Inhalation DAILY verapamil 240 MG tablet extended release 240 mg PO DAILY montelukast 10 MG tablet 10 mg PO DAILY levalbuterol tartrate [Xopenex HFA] 15 GM HFA aerosol inhaler 90 mcg Inhalation Q4H PRN Label Comments: 03/24/14 pt hasnt used in over a year. Rare use ibuprofen 600 MG tablet 600 mg PO Q6H PRN (Reason: Pain) Qty: 20 0RF glucosamine sulfate [Glucosamine] 500 mg Tablet 500 mg PO DAILY paroxetine HCl 20 mg Tablet 20 mg PO DAILY lisinopril 10 mg Tablet 20 mg PO DAILY cholecalciferol (vitamin D3) [Vitamin D3] 1,000 unit Capsule 1,000 unit PO DAILY omega 7-qql-dty-fish oil [Fish Oil] 1,000 mg (120 mg-180 mg) Capsule 1 cap PO DAILY Humira(CF) Pen 40 mg/0.4 mL pen injector kit 40 mg SUBCUT Q14D ginkgo biloba 500 mg Capsule 500 mg PO DAILY omeprazole 40 mg capsule,delayed release(DR/EC) Label Comments: TAKE 1 CAPSULE BY MOUTH EVERY DAY Discontinued buspirone 5 mg tablet PO BID Label Comments: TAKE 1 TABLET BY MOUTH TWICE DAILY. MAY INCREASE TO 3 TIMES A DAY IF TOLERATED AFTER 7 DAYS Discharge Instructions Instructions: Muscle Spasm (ED) Additional Instructions: As we discussed, I believe that your jaw spasms are associated with your buspirone and I would like for you to stop this medication. Your labs are reassuring here today for no acute emergent process. Please encourage hydration. Please continue to monitor your symptoms. Please call your primary care on Thursday morning to schedule prompt follow-up appointment to discuss today symptoms as well as to discuss alternative medication for your anxiety. If you develop chest pain, shortness of breath, difficulty breathing, worsening spasms or other new/worsening symptoms seek care urgently with again. Referrals: Alida Adams [Primary Care Provider] - Discharge Data Discharge Date/Time-TO BE ENTERED AT DEPARTURE: 07/26/22 20:53 Medical Decision Making Patient is a pleasant 61-year-old female presenting today with chief complaint of muscle spasms in her jaw. She reports this began this morning. States that these last for about 30 seconds. When this occurs, she reports that the jaw pushes back or estimates that she not able to talk. States that she has a brief episode of feeling short of breath but that this resolved prior to the resolution of the muscle spasm. She deneis CP, radiation of pain. No neurologic deficit. Denies sensory changes, weakness, change in gait. This has mad it difficult for her to speak during the event but otherwise no defict. Denies fevers/chills, SIFUENTES, neck pain, rash. Reports that she has had large amount of stress and has suffered signficant losses in her life recently. She was started on buspirone 2 weeks ago, has been taking 5mg BID. On exam, patient appears anxious but otherwise nontoxic. VS are significant for HTN. This was initially 188/119 but down trending while in the room. She has no evidence of emergent, end organ damage at this time from her hypertension. Kaila rologic exam intact. Normal cardiac exam, lungs are clear. No spasm while in the room with th epatient. However, I have asked that she call immediately if she experiences this again. Concerned for possible medication SE given timeline. Per UTD, this has been implicated with focal dystonia which sounds like what the paient is describing. Also considered electrolyte abnormality, thyroid dysfunction. I find ACS unlikely but given location, will screen for this. She does not have hx or exam to suggest PE, cerebral dissection, esophageal rupture. No evidence of infection at this time. ECG was obtain and reviewed by physician with no acute ischemic changes noted. Labs reviewed, no signficant abnormality. Out of abundance of caution, will obtain repeat troponin. Repeat troponin remains WNL. Discussed findigs with the patient. Will have her stop the buspiron as this is the likely source of her abnormal movements. She has a few reported brief episodes since being here. However, none lasted long enough for her to push the call button for me to witness. They do seem to be lessening in duration and severity per patient report. She would be due for another dose of buspirone now. Encouraged hdyartion. Encouraged close f/u with PCP. We did discuss her MH, particularly with recent tressor, she will discuss more with PCP, particularly as she is going to stop this medication and may need to transion to another soon. We did discuss starting something else now but would prefer to hold off while she is still having symptoms to ensure that she does not have confusion with symptoms of one drug to another. She is also seeking out therapist. Strict return precautions discussed. All of her questions and concerns were addressed, she is in agreement with this plan. HPI General Date/Time Provider Initiated Documentation: 07/26/22 16:31 . Limitations to Documentation: no limitations . Information obtained by: patient and RN notes reviewed . History of Present Illness 61 year old F presents to the emergency department with the chief complaint of jaw spasms, described as moderate, with intensity rated at 1 (denies any pain, feels uncomfortable with the spasm but no pain). Quality is described as other (spasm), and is localized to the mouth (pulls lower jaw backward). Patient reports no radiation. Patient started experiencing this hour(s) and it has been intermittent. No relieving factors improve symptom(s), No exacerbating factors reported . Patient notes denies confusion, chest pain, cough, diaphoresis, fever/chills, headaches, loss of appetite, malaise, nausea/vomiting, rash, shortness of breath and weakness. Patient did receive the following treatments prior to arrival, none Related Data Home Medications Medication Instructions Recorded Confirmed Advair Diskus 250 mcg-50 mcg/dose 2 ea inhalation DAILY 01/02/14 07/26/22 powder for inhalation (fluticasone propion-salmeterol) Xopenex HFA 45 mcg/actuation 90 mcg inhalation Q4H PRN 01/02/14 07/26/22 aerosol inhaler (levalbuterol tartrate) montelukast 10 mg tablet 10 mg PO DAILY 01/02/14 07/26/22 verapamil 240 mg tablet,extended 240 mg PO DAILY 01/02/14 07/26/22 release ibuprofen 600 mg tablet 600 mg PO Q6H PRN Pain #20 tabs 04/24/17 06/02/21 cholecalciferol (vitamin D3) 25 1,000 unit PO DAILY 07/27/19 07/26/22 mcg (1,000 unit) capsule (Vitamin D3) glucosamine sulfate 500 mg tablet 500 mg PO DAILY 07/27/19 07/26/22 (Glucosamine) lisinopril 10 mg tablet 20 mg PO DAILY 07/27/19 07/26/22 omega 6-hzk-gsu-fish oil 1,000 mg 1 cap PO DAILY 07/27/19 07/26/22 (120 mg-180 mg) capsule (Fish Oil) paroxetine HCl 20 mg tablet 20 mg PO DAILY 07/27/19 07/26/22 adalimumab 40 mg/0.4 mL 40 mg subcut Q14D 06/02/21 07/26/22 subcutaneous pen kit (Humira(CF) Pen) ginkgo biloba 500 mg capsule 500 mg PO DAILY 06/02/21 06/02/21 omeprazole 40 mg capsule,delayed cap 07/26/22 07/26/22 release Previous Rx's Medication Instructions Recorded ibuprofen 600 mg tablet 600 mg PO Q6H PRN Pain #20 tabs 04/24/17 Allergies Allergy/AdvReac Type Severity Reaction Status Date / Time methadone Allergy Severe Unverified 06/02/21 15:08 polyethylene glycol Allergy Severe Unverified 06/02/21 15:08 [From Golytely] polyethylene glycol 3350 Allergy Severe Unverified 06/02/21 15:08 [From Golytely] potassium chloride* Allergy Severe Unverified 06/02/21 15:08 [From Golytely] sodium [From Golytely] Allergy Severe Unverified 06/02/21 15:08 sodium bicarbonate Allergy Severe Unverified 06/02/21 15:08 [From Golytely] sodium chloride Allergy Severe Unverified 06/02/21 15:08 [From Golytely] sodium sulfate Allergy Severe Unverified 06/02/21 15:08 [From Golytely] mercaptopurine Allergy Mild Unverified 06/02/21 15:08 methylprednisolone AdvReac Severe GI bleeding Unverified 06/02/21 15:08 [From Medrol] Tussin CF, OTC AdvReac Severe Heat Uncoded 06/02/21 15:08 reaction General Stated Complaint: Chest Pain SILVIA: 2 Review of Systems Constitutional Constitutional: Reports as per HPI, Denies chills, Denies fever(s), Denies headache(s), Denies lethargy and Denies poor appetite Eyes Eyes: Denies change in vision ENT Ears, Nose, Mouth, and Throat: Denies dizziness and Denies headache(s) Cardiovascular Cardiovascular: Reports as per HPI, Denies dyspnea and Denies dyspnea on exertion Respiratory Respiratory: Reports as per HPI, Denies chest congestion, Denies cough, Denies dyspnea and Denies dyspnea on exertion Gastrointestinal Gastrointestinal: Reports as per HPI, Denies abdominal pain, Denies diarrhea, Denies nausea and Denies vomiting Musculoskeletal Musculoskeletal: Reports as per HPI and Denies back pain Integumentary/Breasts Skin/Breast: Reports as per HPI and Denies rash Neurologic Neurologic: Reports as per HPI, Denies dizziness and Denies headache(s) PFSH All Active Problems (Updated 07/26/22 @ 20:48 by MARIBEL Lott) Chest pain (Acute) Muscle spasm (Acute) Sleep apnea (Chronic) Asthma (Chronic) Chest pain (Acute) Hypertension (Chronic) Crohns disease (Chronic) Social History Smoking/Tobacco Use Status: Never Smoking risk assessment performed?: Yes Alcohol Intake: current Alcohol Intake frequency: holidays/special occasions only Drug use: Never Substance use type: does not use Do you feel safe at home: Yes Do you feel safe in your relationship?: Yes Exam Const General: cooperative, healthy appearing, comfortable, no acute distress, well developed and anxious Nutritional Appearance: well nourished and overweight Orientation: alert, awake and oriented x3 HENMT Head: normal to inspection Ears: hearing grossly normal bilaterally, external ears normal and TM's normal bilaterally General nose exam: external nose normal Face and sinus: normal facial exam and face symmetric Mouth: oral mucosae normal, lip normal, tongue normal, oropharynx normal, moist mucous membranes, no muffled voice, No abnormal TMJ, no trismus and No restricted motion Teeth and gingiva: dentition normal Throat: posterior oropharynx normal, tonsils normal and uvula midline Eyes General: appearance normal, both eyes and all related structures Pupils: PERRL EOM: EOM intact bilaterally Neck Neck: normal visual inspection, full ROM, no lymphadenopathy, no anterior neck swelling, nontender, no torticollis and No submandibular swelling Chest Chest: normal inspection of the chest, normal palpation of entire chest wall and no crepitus Resp Effort & Inspection: normal respiratory effort, able to speak in complete sentences and no respiratory distress Auscultation: clear to auscultation bilaterally, no rales, no rhonchi and no wheezes Cardio Rate: regular rate Rhythm: regular rhythm Heart Sounds: S1 normal and S2 normal Back/Spine/Pelvis Back: no CVA tenderness Thoracic/Lumbar Spine: thoracic and lumbar spine normal to inspection Skin General skin exam: no rashes or lesions noted Trauma: no lacerations or abrasions Neuro General: patient alert, patient awake and patient oriented x3 Cranial Nerves: CN's II-XI intact bilaterally Cognition: normal cognition Speech: speech normal Gait: normal gait Motor: muscle tone normal throughout, strength 5/5 throughout, no pronator drift, no movement abnormalities noted and no fasciculations Extrem General: normal to inspection, capillary refill normal, no pedal edema, no calf tenderness and normal gait Psych Appearance: grossly normal and well kempt Mental Status: mental status grossly normal Speech and Movement: speech and movement normal Course Vital Signs Vital signs: Vital Signs Temperature 37.1 C 07/26/22 16:14 Pulse 75 07/26/22 16:14 Respiratory Rate 18 07/26/22 16:14 Blood Pressure 188/119 H 07/26/22 16:14 Pulse Oximetry 97 07/26/22 16:14 Temperature 37.1 C 07/26/22 16:14 Temperature Source Temporal Artery Scan 07/26/22 16:14 Pulse 75 07/26/22 16:14 Respiratory Rate 18 07/26/22 16:14 Blood Pressure 188/119 H 07/26/22 16:14 Blood Pressure Position Supine 07/26/22 16:14 Pulse Oximetry 97 07/26/22 16:14 Oxygen Delivery Method Room Air 07/26/22 16:14 Oxygen Flow Rate 0 07/26/22 16:14 Pain Level 0 07/26/22 16:14 Comment 07/26/22 16:14
[2022-07-26 17:00] LABS: Abs Immature Grans 0.03 10^3/uL (0.0-0.06); Absolute Basophil Count 0.05 10^3/uL (0.0-0.2); Absolute Eosinophil Count 0.23 10^3/uL (0.0-0.7); Absolute Lymphocyte Count 3.48 10^3/uL (1.2-3.4); Absolute Monocyte Count 0.93 10^3/uL (0.1-0.8); Basophils % 0.6; Eosinophils % 2.7; HGB 14.3 g/dL (11.2-15.7); Immature Grans % 0.3; Lymphocytes % 40.4; MCH 29.7 pg (27.0-33.0); MCHC 33.3 % (32.0-36.0); MCV 89 fL (80-95); MPV 9.7 fL (8.0-11.0); Monocytes % 10.8; Neutrophils % 45.2; Platelet Count 225 10^3/uL (130-400); RBC 4.81 10^6/uL (3.93-5.22); RDW 14.2 % (11.7-14.6); RDW-SD 46.5 fL; WBC 8.62 10^3/uL (4.4-10.8)
[2022-07-26] MEDS: Normal Saline 500 ML IV (17:08)
[2022-07-26 17:19] VITALS: BP 153/107; PULSE 69; RESP 18; O2SAT 97
[2022-07-26 17:34] LABS: ALT 28 U/L (14-59); AST 17 U/L (15-37); Alkaline Phosphatase 82 U/L (46-116); BUN 14 mg/dL (7-18); Bilirubin, Total 0.3 mg/dL (0.2-1.0); CREATININE 0.7 mg/dL (0.55-1.02); Chloride 103 mmol/L (98-107); Estimated GFR 98.95 (mL/min/1.73m2); Glucose 88 mg/dL (74-106); Magnesium 2.2 mg/dL (1.8-2.4); Potassium 3.6 mmol/L (3.5-5.1); Sodium 140 mmol/L (136-145); TSH (W/Ref FT4) 1.19 uIU/mL (0.36-3.74); Total Protein 7.7 g/dL (6.4-8.2); Troponin I < 50 ng/L (<or=60)
[2022-07-26 18:17] VITALS: BP 142/77; PULSE 78; RESP 18; O2SAT 97
[2022-07-26] MEDS: Acetaminophen 500 MG TAB 1000 MG PO (18:32)
[2022-07-26 20:47] VITALS: BP 153/79; PULSE 74; RESP 18; O2SAT 98
[2022-07-26 20:58] LABS: Troponin I < 50 ng/L (<or=60)
== END 2022-07-26 20:53 | disposition home or self-care (01) ==
PROVIDERS: Emergency Provider Physician Assistant; PCP Nurse Practitioner Family
DX: M62.838 Other muscle spasm (principal); I10 Essential (primary) hypertension
CPT/HCPCS: 80053; 93005; 99283; 83735; 84443; 84484; 85025; 93010; 99282

== ENCOUNTER → 2022-08-27 01:20 | Outpatient (CLI) | payer MEDICAID, SELFPAY ==
--- NOTE | 2022-08-27 11:45 | DI.MAMMO_ITS ---
Exam(s) MAMMO SCREENING EXAM: MAMMO SCREENING CLINICAL HISTORY: SCREENING, Z12.31. TECHNIQUE: Bilateral full field digital CC and MLO mammographic images were obtained with 3D tomosyn thesis and utilizing computer aided detection (CAD). COMPARISON: Prior mammograms were reviewed, the most recent being August 2020. FINDINGS: There are 2 new similar appearing asymmetric densities in the left breast, both measuring approximate ly 1 cm size and both located approximately 6 cm in from the nipple on the CC view. On 3D imaging jadiel th appear to be associated with some architectural distortion. There are no malignant-appearing microcalcification groups in these regions nor elsewhere in either b reast. There are no new significant new findings in the opposite-right breast. No new skin thickening-traction. IMPRESSION: 1. No radiographic evidence of malignancy right breast. 2. In the left breast there are 2 new similar appearing nodular densities which are slightly spiculat ed and both exhibit focal architectural distortion. Suspicious for concerning pathology. Further im aging recommended, including spot compression views and complete breast ultrasound. Findings and recommendations called by myself to Dr. Diaz at the [facility] 08/27/2022 at 12:45 p.m. BI-RADS Category 4 - Suspicious Abnormality: Biopsy should be considered Breast Density - Category B - Scattered areas of fibroglandular density Breast density Category C or D implies that the patient has dense breast tissue. Dense breast tissue can make it harder to find cancer on a mammogram. Dense breast tissue is also associated with an incr eased risk of breast cancer. This information about the result of the mammogram report was provided to the patient to raise their awareness. Use this report when you speak with the patient about their risks for breast cancer, which includes their family history. At that time, you may recommend additional screening tests (Ultrasoun d or MRI) as these tests may add significant information. A negative radiographic report should not delay biopsy if a dominant or clinically suspicious mass is present. Up to ten percent of cancers are not identified on mammography. A negative report may reinforce clinical impression. Adenosis and dense breasts may obscure an underlying neoplasm. False positive reports average 6 to 10%. Patient will receive a letter notifying them of these results.
== END ==
PROVIDERS: PCP Nurse Practitioner Family; Visit Provider Nurse Practitioner Family
DX: Z12.31 Encounter for screening mammogram for malignant neoplasm of breast (principal); R92.8 Other abnormal and inconclusive findings on diagnostic imaging of breast
CPT/HCPCS: 77063; 77067

== ENCOUNTER → 2022-09-16 01:39 | Outpatient (CLI) | payer MEDICAID, SELFPAY ==
--- NOTE | 2022-09-16 | DI.US_ITS ---
Exam(s) MG MAMMO SCREEN CALL BACK UNI US BREAST LT COMPLETE EXAM: MG MAMMO SCREEN CALL BACK UNI and U/S breast LT complete CLINICAL HISTORY: F/U MAMMO, ASYMMETRIC NODULAR [id number]. TECHNIQUE: Craniocaudal and mediolateral oblique Full Field Digital Mammography views of the left br east with Computer Aided Diagnosis followed by Tomosynthesis and left breast ultrasound. COMPARISON: Comparison is made with prior examinations. FINDINGS: Mammography/Tomosynthesis: Masses/Architectural Distortion: On the additional view there is again seen a spiculated mass in the 3 o'clock position of the left breast which persists. There is also a spiculated mass in the lower i nner quadrant of the left breast which persists. Microcalcifictions: No suspicious pleomorphic-type are seen. Skin Thickening/Nipple Retraction: None. Complete left breast US: Echotexture: Normal appearance of the glandular tissue. Shadowing: No suspicious foci. Cyst: None. Solid lesions: At the 4 o'clock position of the breast approximately 1 cm from the nipple there is a hypoechoic irregular angular mass present. It measures 8 x 5 mm. At the 7 o'clock position there is a 2nd hypoechoic angular mass measuring 8 x 7 mm. These correspond to the mammographic findings. N o suspicious axillary lymph nodes are seen. There is a well-circumscribed round hypoechoic nodule me asuring 4 mm at the 2 o'clock position of the left breast 7 cm from the nipple. Ductal dilation: None. IMPRESSION: 1. Suspicious left breast nodules as described above. 2. Biopsy is recommended. 3. The findings were discussed with the patient on the date of the examination. 4. Findings were discussed with Dr. Mills at 3 p.m. on 09/16/2022. BI-RADS Category 5 - Highly Suggestive of Malignancy: Biopsy recommended Breast Density - Category B - Scattered areas of fibroglandular density Breast density Category C or D implies that the patient has dense breast tissue. Dense breast tissue can make it harder to find cancer on a mammogram. Dense breast tissue is also associated with an incr eased risk of breast cancer. This information about the result of the mammogram report was provided to the patient to raise their awareness. Use this report when you speak with the patient about their risks for breast cancer, which includes their family history. At that time, you may recommend additional screening tests (Ultrasoun d or MRI) as these tests may add significant information. A negative radiographic report should not delay biopsy if a dominant or clinically suspicious mass is present. Up to ten percent of cancers are not identified on mammography. A negative report may reinforce clinical impression. Adenosis and dense breasts may obscure an underlying neoplasm. False positive reports average 6 to 10%. Patient will receive a letter notifying them of these results.
== END ==
PROVIDERS: PCP Nurse Practitioner Family; Visit Provider Family Medicine
DX: N63.21 Unspecified lump in the left breast, upper outer quadrant (principal); N63.24 Unspecified lump in the left breast, lower inner quadrant; Z12.31 Encounter for screening mammogram for malignant neoplasm of breast
CPT/HCPCS: 76642; 77063; 77067

== ENCOUNTER → 2022-10-01 14:24 | Outpatient (CLI) | payer MEDICAID, SELFPAY ==
--- NOTE | 2022-10-01 13:01 | DI.RAD_ITS ---
Exam(s) XR KNEE LT 3V AP,LAT,TANVIR EXAM: XR KNEE LT 3V AP,LAT,TANVIR CLINICAL HISTORY: PAIN IN LEFT KNEE--M25.562. TECHNIQUE: 2D digital imaging was performed of the left knee. Three images were obtained. AP, late ral and PA tunnel views were obtained. COMPARISON: No priors for comparison. FINDINGS: BONES: No acute fracture is present. No bony destructive lesion is seen. JOINTS: There is moderate narrowing of the medial femoral tibial joint. Periarticular spurring is se en both medially and laterally. There is a small joint effusion. SOFT TISSUE: Normal. IMPRESSION: Osteoarthritis of the left knee. DATA REPOSITORY: RADIATION DOSE DELIVERED:
== END ==
PROVIDERS: PCP Nurse Practitioner Family; Visit Provider Family Medicine
DX: M25.562 Pain in left knee (principal); M25.462 Effusion, left knee; M17.12 Unilateral primary osteoarthritis, left knee
CPT/HCPCS: 73562

== ENCOUNTER 2023-04-18 09:41 | Emergency (ER) | payer MEDICAID, SELFPAY ==
[2023-04-18] VITALS (19 sets, daily range): BP systolic 97–140; BP diastolic 57–85; PULSE 89–102; RESP 18; TEMP 36.8; O2SAT 92–97
--- NOTE | 2023-04-18 09:54 | W.ED.GENAD ---
Discharge Plan Disposition Patient Disposition: Home Condition: Improving Discharge Details Clinical Impression: Acute dehydration, Diarrhea, Decrease in appetite, Hypokalemia, Hypocalcemia, Hypoalbuminemia Primary Care Provider: Alida Adams ED Provider: Edwige Dooley Home Meds and New Rx's Prescriptions: Continued fluticasone propion-salmeterol [Advair Diskus] 1 EACH blister with device 2 ea Inhalation DAILY verapamil 240 MG tablet extended release 240 mg PO DAILY montelukast 10 MG tablet 10 mg PO DAILY levalbuterol tartrate [Xopenex HFA] 15 GM HFA aerosol inhaler 90 mcg Inhalation Q4H PRN Patient Comments: 03/24/14 pt hasnt used in over a year. Rare use ibuprofen 600 MG tablet 600 mg PO Q6H PRN (Reason: Pain) Qty: 20 0RF glucosamine sulfate [Glucosamine] 500 mg Tablet 500 mg PO DAILY paroxetine HCl 20 mg Tablet 20 mg PO DAILY lisinopril 10 mg Tablet 20 mg PO DAILY cholecalciferol (vitamin D3) [Vitamin D3] 1,000 unit Capsule 1,000 unit PO DAILY omega 6-img-ddt-fish oil [Fish Oil] 1,000 mg (120 mg-180 mg) Capsule 1 cap PO DAILY Humira(CF) Pen 40 mg/0.4 mL pen injector kit 40 mg SUBCUT Q14D ginkgo biloba 500 mg Capsule 500 mg PO DAILY omeprazole 40 mg capsule,delayed release(DR/EC) Patient Comments: TAKE 1 CAPSULE BY MOUTH EVERY DAY buspirone 5 mg tablet Patient Comments: TAKE ONE TABLET BY MOUTH TWICE A DAY AND INCREASE TO THREE TIMES A DAY IF TOLERATED AFTER 7 DAYS prochlorperazine maleate [Compazine] 10 mg tablet Patient Comments: Take 1 tablet by mouth every six hours as needed dexamethasone 4 mg tablet letrozole 2.5 mg tablet Discharge Instructions Instructions: Dehydration (ED), Hypokalemia (ED) Additional Instructions: Your potassium and calcium were slightly low here today. These were replenished. Please encourage hydration and try to increase the foods that have these things in them. As we discussed, I would also like for you to discuss this further with your oncology team as you may need a chronic supplement for this. Please keep your upcoming appointment. Please try to have frequent sips of fluid to help prevent further dehydration. As we discussed, there is no blood in your stool at this time and this is thought to be associated with the blueberries you had yesterday. If you develop fever/chills, increased pain, inability stay hydrated or other new/worsening symptom please seek care urgently once again. Referrals: Alida Adams [Primary Care Provider] - Medical Decision Making Patient is a pleasant 62-year-old female with significant past medical history of breast cancer currently undergoing chemotherapy, Crohn's disease which is not currently being treated, asthma, GERD, hypertension, presenting today with loose stools and dark stool x1 this morning. Patient began her chemotherapy regimen on April 09, next dosing is April 28, this consists of cyclophosphamide and docetaxel. She states that she was typically managed with Humira for her Crohn's but that with the beginning of chemo, they have stopped this. Over the past 3 days she has been noting some loose stools. States that today with a dark stool she was concerned for potential bleed. She also notes though that she did have blueberries yesterday and this may have contributed to when she is visualizing. She denies any fevers or chills. She denies any abdominal pain. States that since beginning chemo, her p.o. intake has been limited. Has not been hydrating much. This morning she has had a donut, 2 eggs and toast. Typically uses Miralax for daily BM, stopped this 3 days ago when seh started with her loose stools. She had hx of bowel obstruction in October of last year. on exam, patient appears nontoxic. She is resting comfortably. She does appear slightly dehydrated. Her blood pressure slightly low at 97 on 76 with a pulse of 97. Lungs are clear, normal cardiac exam. No rash. No easy bruising or bleeding evidence by patient or on physical exam. No petechial rash. Abdomen is benign with no tenderness with palpation or percussion. No CVA tenderness. On rectal exam she does have a nonthrombosed hemorrhoids with no active bleeding. No internal hemorrhoids were able to be palpated. I was only able to obtain a small amount of stool on the digital rectal exam and this was negative for blood but he was such a small amount I am hesitant to suggest this is a accurate test. Concern at this time for possible bleed, will 1 obtain stool to look for Hemoccult blood. Do not see any indication of surgical abdomen. She has not had any previous abdominal surgeries. Also considered potential Crohn's flare. Her GI upset however, may also be linked to her chemotherapy. Will obtain labs, in particular looking for electrolyte abnormalities. We will hydrate the patient as she does appear dehydrated and her vital sign certainly suggest this. Patient I also discussed referral to palliative care which I will place. CMP concerning for K of 3.0, mag 1.8, Ca7.3, albumin 3.0. Calcium corrects to 8.1. We will continue Oral calcium intake and also replace potassium orally. We are able to obtain another stool sample and in this, I was able to visualize with the blueberry skins and it was negative for blood. Consulted with Dr. Martini with oncology at [facility] [place] He feels the patient is safe for discharge. I did advise that patient may be having a Crohn's flare. However, for now we will hold off as this does seem to be fairly mild for the patient. Per the patient and her daughter, her appetite is beginning to increase over the past few days her hoping that with the increase p.o. intake hopefully her nutritional deficits that were noted will begin to improve. Oncology advised her to keep her upcoming appointment and encourage hydration. Patient has appointment on Thursday already scheduled. She is hungry at this point, eating, drinking fluids. Patient will continue to encourage hydration. I encouraged that as her p.o. intake increases she try to increase the amount of calcium and potassium she is not taking. I did discuss supplementation with her but she wants to discuss this further with her oncology team to feel like this is appropriate. Return precautions were discussed. She has an appointment scheduled for Thursday. Mother questions and concerns were addressed and she is in agreement with this plan. HPI General Date/Time Provider Initiated Documentation: 04/18/23 09:42. Limitations to Documentation: no limitations. Information obtained by: patient, RN notes reviewed and old records reviewed. History of Present Illness 62 year old F presents to the emergency department with the chief complaint of diarrhea, dark stool x1, Quality is described as other (denies any pain currently, had some aching after eating since chemo started), Patient started experiencing this day(s) (loose stool x3 days, dark stool x1 this AM) other things that improve symptom(s), (ate blueberries yesterday, questioning if this could be the color change) Patient notes loss of appetite; denies chest pain, cough, diaphoresis, fever/chills, headaches, malaise, nausea/vomiting, rash and shortness of breath. Patient did receive the following treatments prior to arrival, none Related Data Home Medications Medication Instructions Recorded Confirmed Advair Diskus 250 mcg-50 mcg/dose 2 ea inhalation DAILY 01/02/14 07/26/22 powder for inhalation (fluticasone propion-salmeterol) Xopenex HFA 45 mcg/actuation 90 mcg inhalation Q4H PRN 01/02/14 07/26/22 aerosol inhaler (levalbuterol tartrate) montelukast 10 mg tablet 10 mg PO DAILY 01/02/14 07/26/22 verapamil 240 mg tablet,extended 240 mg PO DAILY 01/02/14 07/26/22 release ibuprofen 600 mg tablet 600 mg PO Q6H PRN Pain #20 tabs 04/24/17 06/02/21 cholecalciferol (vitamin D3) 25 1,000 unit PO DAILY 07/27/19 07/26/22 mcg (1,000 unit) capsule (Vitamin D3) glucosamine sulfate 500 mg tablet 500 mg PO DAILY 07/27/19 07/26/22 (Glucosamine) lisinopril 10 mg tablet 20 mg PO DAILY 07/27/19 07/26/22 omega 1-ofs-xzr-fish oil 1,000 mg 1 cap PO DAILY 07/27/19 07/26/22 (120 mg-180 mg) capsule (Fish Oil) paroxetine HCl 20 mg tablet 20 mg PO DAILY 07/27/19 07/26/22 adalimumab 40 mg/0.4 mL 40 mg subcut Q14D 06/02/21 07/26/22 subcutaneous pen kit (Humira(CF) Pen) ginkgo biloba 500 mg capsule 500 mg PO DAILY 06/02/21 06/02/21 omeprazole 40 mg capsule,delayed cap 07/26/22 07/26/22 release buspirone 5 mg tablet mg 04/18/23 04/18/23 dexamethasone 4 mg tablet mg 04/18/23 04/18/23 letrozole 2.5 mg tablet mg 04/18/23 04/18/23 prochlorperazine maleate 10 mg mg 04/18/23 04/18/23 tablet (Compazine) Previous Rx's Medication Instructions Recorded ibuprofen 600 mg tablet 600 mg PO Q6H PRN Pain #20 tabs 04/24/17 Allergies Allergy/AdvReac Type Severity Reaction Status Date / Time methadone Allergy Severe Unverified 06/02/21 15:08 polyethylene glycol Allergy Severe Unverified 06/02/21 15:08 [From Golytely] polyethylene glycol 3350 Allergy Severe Unverified 06/02/21 15:08 [From Golytely] potassium chloride* Allergy Severe Unverified 06/02/21 15:08 [From Golytely] sodium [From Golytely] Allergy Severe Unverified 06/02/21 15:08 sodium bicarbonate Allergy Severe Unverified 06/02/21 15:08 [From Golytely] sodium chloride Allergy Severe Unverified 06/02/21 15:08 [From Golytely] sodium sulfate Allergy Severe Unverified 06/02/21 15:08 [From Golytely] mercaptopurine Allergy Mild Unverified 06/02/21 15:08 methylprednisolone AdvReac Severe GI bleeding Unverified 06/02/21 15:08 [From Medrol] Tussin CF, OTC AdvReac Severe Heat Uncoded 06/02/21 15:08 reaction General Stated Complaint: GI Bleed SILVIA: 3 Review of Systems Constitutional Constitutional: Reports as per HPI, Denies chills and Denies fever(s) Cardiovascular Cardiovascular: Reports as per HPI, Denies chest pain and Denies dyspnea Respiratory Respiratory: Reports as per HPI, Denies cough and Denies dyspnea Gastrointestinal Gastrointestinal: Reports as per HPI Musculoskeletal Musculoskeletal: Reports as per HPI and Denies back pain Integumentary/Breasts Skin/Breast: Reports as per HPI and Denies rash Neurologic Neurologic: Reports as per HPI PFSH All Active Problems (Updated 04/18/23 @ 13:06 by MARIBEL Ltot) Crohns disease (Chronic) Hypertension (Chronic) Chest pain (Acute) Asthma (Chronic) Sleep apnea (Chronic) Chest pain (Acute) Acute dehydration (Acute) Diarrhea (Acute) Decrease in appetite (Acute) Hypokalemia (Acute) Hypocalcemia (Acute) Hypoalbuminemia (Acute) Medical History (Updated 04/18/23 @ 13:06 by MARIBLE Lott) Port-A-Cath in place medcomp power injectible profuse port 8fr single lumen Social History Smoking/Tobacco Use Status: Never Smoking risk assessment performed?: Yes Alcohol Intake: current Alcohol Intake frequency: holidays/special occasions only Drug use: Never Substance use type: does not use Do you feel safe at home: Yes Do you feel safe in your relationship?: Yes Exam Const General: cooperative, healthy appearing, comfortable, no acute distress and well developed Nutritional Appearance: well nourished and obese Orientation: alert and awake [facility] Head: normal to inspection Mouth: mucous membranes dry (appears dry) Resp Effort & Inspection: normal respiratory effort, able to speak in complete sentences and no respiratory distress Auscultation: clear to auscultation bilaterally, no rales, no rhonchi and no wheezes Cardio Rate: regular rate Rhythm: regular rhythm Heart Sounds: S1 normal and S2 normal GI Inspection: normal to inspection Palpation: soft, not firm, no guarding, no hernias, no masses, not rigid and nontender Percussion: normal to percussion Auscultation: hypoactive bowel sounds Rectal Exam - female: visual inspection normal, normal sphincter tone, No heme positive stool, hemorrhoids, No laceration and No tenderness Back/Spine/Pelvis Back: no CVA tenderness Skin General skin exam: no rashes or lesions noted Trauma: no lacerations or abrasions Neuro General: patient alert and patient awake Cognition: normal cognition Speech: speech normal Gait: normal gait Psych Appearance: grossly normal and well kempt Mental Status: mental status grossly normal Speech and Movement: speech and movement normal Course Vital Signs Vital signs: Vital Signs Temperature 36.8 C 04/18/23 09:45 Pulse 97 H 04/18/23 09:45 Respiratory Rate 18 04/18/23 09:45 Blood Pressure 97/76 L 04/18/23 09:45 Pulse Oximetry 97 04/18/23 09:45 Temperature 36.8 C 04/18/23 09:45 Temperature Source Oral 04/18/23 09:45 Pulse 97 H 04/18/23 09:45 Respiratory Rate 18 04/18/23 09:45 Blood Pressure 97/76 L 04/18/23 09:45 Blood Pressure Position Sitting 04/18/23 09:45 Pulse Oximetry 97 06/10/23 09:45 Oxygen Delivery Method Room Air 04/18/23 09:45 Oxygen Flow Rate 0 04/18/23 09:45 Pain Level 0 04/18/23 09:45
[2023-04-18] MEDS: Lactated Ringers 1,000 ML 1000 ML IV (10:55)
[2023-04-18 11:03] LABS: Abs Immature Grans 1.39 10^3/uL (0.0-0.06); HCT 41.8 % (36.0-46.0); HGB 13.7 g/dL (11.2-15.7); MCH 29.7 pg (27.0-33.0); MCHC 32.8 % (32.0-36.0); MCV 91 fL (80-95); MPV 9.8 fL (8.0-11.0); Platelet Count 268 10^3/uL (130-400); RBC 4.62 10^6/uL (3.93-5.22); RDW 13.4 % (11.7-14.6); RDW-SD 44.7 fL; WBC 20.34 10^3/uL (4.4-10.8)
[2023-04-18 11:19] LABS: ALT 22 U/L (14-59); AST 11 U/L (15-37); Alkaline Phosphatase 70 U/L (46-116); Anion Gap 7.7 mmol/L (3-11); BUN 19 mg/dL (7-18); Bilirubin, Total 0.2 mg/dL (0.2-1.0); CO2 29.3 mmol/L (21.0-32.0); Calcium 7.3 mg/dL (8.5-10.1); Chloride 103 mmol/L (98-107); Estimated GFR 64.09 (mL/min/1.73m2); Glucose 120 mg/dL (74-106); Magnesium 1.8 mg/dL (1.8-2.4); Sodium 140 mmol/L (136-145); Total Protein 5.9 g/dL (6.4-8.2)
[2023-04-18 11:39] LABS: Absolute Eosinophil Count 0.61 10^3/uL (0.0-0.7); Absolute Lymphocyte Count 3.66 10^3/uL (1.2-3.4); Absolute Monocyte Count 2.03 10^3/uL (0.1-0.8); Absolute Neutrophil Count 13.22 10^3/uL (1.2-6.7); Bands % 6; Diff Comment Manual Differential; Metamyelocytes % 3; RBC Morphology Normal
[2023-04-18] MEDS: Calcium Carbonate *TUMS* 500 MG CHEW 1000 MG PO (12:04)
[2023-04-18] MEDS: Potassium Chloride 20 MEQ TABCR 40 MEQ PO (12:05)
--- NOTE | 2023-04-18 12:13 | NUR.NOTE ---
Nursing Note: Referral faxed to Palliative Care for breast CA, Crohns/ order was placed/ for next available appt.
--- NOTE | 2023-04-18 12:19 | NUR.NOTE ---
Nursing Note: [place] top (blood draw container) sent to lab w/o red sticker after provider stated that she did not want a type and screen done. blood had been drawn, sent to lab anyway in case they could do something with it.
[2023-04-18] MEDS: Heparin 500 UNITS/5 ML SYRINGE (13:29)
--- NOTE | 2023-04-18 13:37 | NUR.NOTE ---
Nursing Note:urinalysis not obtained. provider stated that its outcome was no longer medically relevant
== END 2023-04-18 13:37 | disposition home or self-care (01) ==
PROVIDERS: Emergency Provider Physician Assistant; PCP Nurse Practitioner Family
DX: E86.0 Dehydration (principal); R19.7 Diarrhea, unspecified; E87.6 Hypokalemia; E83.51 Hypocalcemia; R77.0 Abnormality of albumin; K50.90 Crohn's disease, unspecified, without complications; C50.919 Malignant neoplasm of unspecified site of unspecified female breast
CPT/HCPCS: 36415; 80053; 96360; 99284; 83735; 85025

== ENCOUNTER 2023-04-28 03:29 | Outpatient (CLI) | payer MEDICAID, SELFPAY ==
[2023-04-28 09:20] LABS: Abs Immature Grans 0.26 10^3/uL (0.0-0.06); Absolute Monocyte Count 1.01 10^3/uL (0.1-0.8); Basophils % 0.2; HCT 38.9 % (36.0-46.0); HGB 13.4 g/dL (11.2-15.7); Immature Grans % 1.3; Lymphocytes % 10.1; MCH 30.5 pg (27.0-33.0); MCHC 34.4 % (32.0-36.0); MCV 88 fL (80-95); MPV 9.3 fL (8.0-11.0); Monocytes % 5.1; Neutrophils % 83.3; Platelet Count 227 10^3/uL (130-400); RDW 13.5 % (11.7-14.6); RDW-SD 42.7 fL; WBC 19.77 10^3/uL (4.4-10.8)
[2023-04-28 09:22] LABS: Absolute Basophil Count 0.04 10^3/uL (0.0-0.2); Absolute Neutrophil Count 16.47 10^3/uL (1.2-6.7)
[2023-04-28 09:37] LABS: ALT 30 U/L (14-59); AST 9 U/L (15-37); Albumin 3.5 g/dL (3.4-5.0); Alkaline Phosphatase 58 U/L (46-116); Anion Gap 13.4 mmol/L (3-11); BUN 19 mg/dL (7-18); Bilirubin, Direct 0.1 mg/dL (0.0-0.2); Bilirubin, Total 0.3 mg/dL (0.2-1.0); C-Reactive Protein 0.05 mg/dL (0.0-0.3); CO2 24.6 mmol/L (21.0-32.0); CREATININE 1.1 mg/dL (0.55-1.02); Calcium 8.5 mg/dL (8.5-10.1); Chloride 105 mmol/L (98-107); Estimated GFR 57.17 (mL/min/1.73m2); Glucose 199 mg/dL (74-106); Potassium 3.8 mmol/L (3.5-5.1); Sodium 143 mmol/L (136-145); Total Protein 6.7 g/dL (6.4-8.2)
== END 2023-04-28 03:30 | disposition home or self-care (01) ==
PROVIDERS: Internal Medicine; PCP Nurse Practitioner Family; Visit Provider Internal Medicine Gastroenterology
DX: Z01.818 Encounter for other preprocedural examination (principal); D64.9 Anemia, unspecified; K50.818 Crohn's disease of both small and large intestine with other complication
CPT/HCPCS: 36415; 80053; 80076; 85025; 86140

== ENCOUNTER 2023-05-01 00:06 | Outpatient (RCR) | payer MEDICAID, SELFPAY ==
[2023-05-01] MEDS: Normal Saline Flush 10 ML SYR IVP (12:38)
[2023-05-01 13:08] LABS: ALT 29 U/L (14-59); AST 11 U/L (15-37); Albumin 3.4 g/dL (3.4-5.0); Alkaline Phosphatase 75 U/L (46-116); Anion Gap 7.5 mmol/L (3-11); BUN 21 mg/dL (7-18); Bilirubin, Total 0.4 mg/dL (0.2-1.0); CO2 30.5 mmol/L (21.0-32.0); CREATININE 0.8 mg/dL (0.55-1.02); Calcium 8.2 mg/dL (8.5-10.1); Chloride 102 mmol/L (98-107); Estimated GFR 83.78 (mL/min/1.73m2); Glucose 185 mg/dL (74-106); Potassium 4.1 mmol/L (3.5-5.1); Sodium 140 mmol/L (136-145); Total Protein 6.5 g/dL (6.4-8.2)
== END 2023-05-08 23:59 | disposition home or self-care (01) ==
LOC: INF 00:06
PROVIDERS: PCP Nurse Practitioner Family; Visit Provider Internal Medicine
DX: E86.0 Dehydration (principal); Z45.2 Encounter for adjustment and management of vascular access device
CPT/HCPCS: 36591; 80053

== ENCOUNTER 2023-05-11 15:50 | Outpatient (REF) | payer MEDICAID, SELFPAY | END 2023-05-11 15:51 | disposition home or self-care (01) | LOC: NCHCN 15:50 | PROVIDERS: PCP Nurse Practitioner Family; Visit Provider Family Medicine | DX: N39.0 Urinary tract infection, site not specified (principal) | CPT/HCPCS: 87077; 87086; 87186 ==

== ENCOUNTER 2023-05-19 03:17 | Outpatient (RCR) | payer MEDICAID, SELFPAY ==
[2023-05-19] MEDS: Normal Saline Flush 10 ML SYR IVP (10:17)
[2023-05-19 10:35] LABS: Abs Immature Grans 0.05 10^3/uL (0.0-0.06); Absolute Basophil Count 0.02 10^3/uL (0.0-0.2); Absolute Lymphocyte Count 0.86 10^3/uL (1.2-3.4); Absolute Monocyte Count 0.09 10^3/uL (0.1-0.8); Absolute Neutrophil Count 7.36 10^3/uL (1.2-6.7); Basophils % 0.2; HCT 38.6 % (36.0-46.0); HGB 13.1 g/dL (11.2-15.7); Immature Grans % 0.6; Lymphocytes % 10.3; MCH 30.5 pg (27.0-33.0); MCHC 33.9 % (32.0-36.0); MCV 90 fL (80-95); MPV 9.5 fL (8.0-11.0); Monocytes % 1.1; Neutrophils % 87.8; Platelet Count 259 10^3/uL (130-400); RBC 4.29 10^6/uL (3.93-5.22); RDW 15.8 % (11.7-14.6); RDW-SD 50.6 fL; WBC 8.38 10^3/uL (4.4-10.8)
[2023-05-19 10:54] LABS: ALT 30 U/L (14-59); AST 17 U/L (15-37); Albumin 3.6 g/dL (3.4-5.0); Alkaline Phosphatase 72 U/L (46-116); Anion Gap 11.8 mmol/L (3-11); BUN 16 mg/dL (7-18); Bilirubin, Total 0.4 mg/dL (0.2-1.0); CO2 25.2 mmol/L (21.0-32.0); Calcium 8.8 mg/dL (8.5-10.1); Chloride 103 mmol/L (98-107); Estimated GFR 64.09 (mL/min/1.73m2); Glucose 218 mg/dL (74-106); Potassium 4.2 mmol/L (3.5-5.1); Sodium 140 mmol/L (136-145); Total Protein 6.8 g/dL (6.4-8.2)
== END 2023-06-08 23:59 | disposition home or self-care (01) ==
LOC: INF 03:17
PROVIDERS: PCP Nurse Practitioner Family; Visit Provider Internal Medicine
DX: Z45.2 Encounter for adjustment and management of vascular access device (principal); C50.912 Malignant neoplasm of unspecified site of left female breast; Z17.0 Estrogen receptor positive status [ER+]
CPT/HCPCS: 36591; 80053; 85025

== ENCOUNTER 2023-06-30 04:16 | Outpatient (RCR) | payer MEDICAID, SELFPAY ==
[2023-06-09] MEDS: Normal Saline Flush 10 ML SYR IVP (10:33)
[2023-06-09 10:46] LABS: Abs Immature Grans 0.08 10^3/uL (0.0-0.06); Absolute Basophil Count 0.01 10^3/uL (0.0-0.2); Absolute Lymphocyte Count 0.58 10^3/uL (1.2-3.4); Absolute Monocyte Count 0.05 10^3/uL (0.1-0.8); Absolute Neutrophil Count 5.73 10^3/uL (1.2-6.7); Basophils % 0.2; HCT 36.1 % (36.0-46.0); HGB 11.8 g/dL (11.2-15.7); Immature Grans % 1.2; MCH 30.1 pg (27.0-33.0); MCHC 32.7 % (32.0-36.0); MCV 92 fL (80-95); MPV 9.5 fL (8.0-11.0); Monocytes % 0.8; Neutrophils % 88.8; Platelet Count 198 10^3/uL (130-400); RBC 3.92 10^6/uL (3.93-5.22); RDW 17.2 % (11.7-14.6); RDW-SD 57.8 fL; WBC 6.45 10^3/uL (4.4-10.8)
[2023-06-09 11:01] LABS: ALT 35 U/L (14-59); AST 16 U/L (15-37); Albumin 3.7 g/dL (3.4-5.0); Alkaline Phosphatase 76 U/L (46-116); Anion Gap 10.5 mmol/L (3-11); BUN 20 mg/dL (7-18); Bilirubin, Total 0.5 mg/dL (0.2-1.0); CO2 27.5 mmol/L (21.0-32.0); Calcium 8.9 mg/dL (8.5-10.1); Chloride 100 mmol/L (98-107); Estimated GFR 64.09 (mL/min/1.73m2); Glucose 255 mg/dL (74-106); Potassium 4.1 mmol/L (3.5-5.1); Sodium 138 mmol/L (136-145); Total Protein 7.1 g/dL (6.4-8.2)
== END 2023-07-09 23:59 | disposition home or self-care (01) ==
LOC: INF 04:16
PROVIDERS: PCP Nurse Practitioner Family; Visit Provider Internal Medicine
DX: C50.912 Malignant neoplasm of unspecified site of left female breast (principal); Z17.0 Estrogen receptor positive status [ER+]; Z45.2 Encounter for adjustment and management of vascular access device
CPT/HCPCS: 36591; 80053; 85025

== ENCOUNTER → 2023-09-02 00:29 | Outpatient (CLI) | payer MEDICAID, SELFPAY ==
--- NOTE | 2023-09-02 | DI.CT_ITS ---
Exam(s) CT CHEST W EXAM: CT CHEST W CLINICAL HISTORY: LYMPHADENOPATHY CHEST/AXILLA, 13 MM NODULE ANT MEDIASTINUM, LT BREAST CA. TECHNIQUE: Multi planar reconstructions were performed. CONTRAST MATERIAL: Omnipaque 350; 75 cc COMPARISON: CT CT CHEST PE CTA from 06/02/2021 FINDINGS: CHEST: LUNGS: There is absence of the previously present mosaic pattern in both lung swenson. The lungs are presently clear with the exception of a small area of increased markings medial aspect of the right l ower lobe at junction of the posterior basal and medial basal segments, previously present. No other areas of infiltrate nor pleural effusions. There are no ominous pulmonary nodules. Platelike atele ctasis in the lingular segment left lung noted. There are no significant focal findings in the trach ea and mainstem bronchi. MEDIASTINUM: There is no hilar adenopathy. No subcarinal adenopathy. There is a round density measu ring 1.5 by 1.3 by 1.3 cm, located to the left of center in the upper mediastinum just above the inno minate vein, behind the left no clavicular joint. It is adjacent to the bifurcation of the brachioce phalic artery into the right common carotid and right subclavian artery and is unchanged in size from 06/02/2021 and therefore most probably benign. No additional densities are noted in the mediastinal fat. Partially included thyroid gland appears unremarkable. The upper half the thyroid gland is no t included in the field of view. Prominent retrocardiac hiatal hernia measuring 6 cm wide by 5 cm AP is noted, slightly larger than previous. CARDIAC: Heart size is normal. There is no pericardial effusion.Coronary artery calcification is not ed-moderate. Caliber of the thoracic aorta is normal. No evidence of dissection. VISUALIZED UPPER ABDOMEN:There are no significant adrenal masses. Distal tip of the right supra clav i in Port-A-Cath is at the SVC-RA junction. OSSEOUS: No significant osseous lesions.No fractures. IMPRESSION: 1. Improved appearance of both lung swenson when compared to prior CT scan of 06/02/2021. There are s ome mild increased markings in the medial basal segment of the right lower lobe still evident but the remainder of the increased markings in both lung swenson have otherwise resolved. There are no pleur al effusions. 2. Abnormal round density again noted in the anterior upper mediastinal fat measuring 15 x 13 x 13 mm located just above the innominate vein behind the most medial aspect of the left clavicle. This is by fat planes from surrounding structures. It may represent a solitary slightly prominent lymph node. Nevertheless, it is unchanged from 06/02/2021 and there are no new similar abnormalities elsewhere in the mediastinum and chest. 3. Large hiatal hernia again noted. This presently measures 6 x 5 cm, slightly larger than previous. Upper esophagus is not dilated. Other findings as above. RADIATION DOSE DELIVERED: Total DLP DATA REPOSITORY: All CT scans at this facility are submitted to the National Radiology Data Registry (NRDR) Dose Index Registry (DIR) with the [employer] ([employer]). RADIATION OPTIMIZATION: All CT scans at this facility use at least one of these dose optimization te chniques: automated exposure control; mA and/or kV adjustment per patient size (includes targeted exa ms where dose is matched to clinical indication); or iterative reconstruction.
[2023-09-02] MEDS: Omnipaque 350 MG/ML 500 ML BTL-Imaging package IJ (13:21)
[2023-09-02] MEDS: Normal Saline - Diluent 50 ML VIAL IJ (13:23)
== END ==
PROVIDERS: PCP Nurse Practitioner Family; Visit Provider Radiology Radiation Oncology
DX: C50.112 Malignant neoplasm of central portion of left female breast (principal); Z17.0 Estrogen receptor positive status [ER+]
CPT/HCPCS: 71260

== ENCOUNTER 2023-09-02 03:18 | Outpatient (RCR) | payer MEDICAID, SELFPAY ==
[2023-09-02] MEDS: Normal Saline Flush 10 ML SYR IVP (12:17)
[2023-09-02 13:04] LABS: CREATININE 0.8 mg/dL (0.55-1.02); Estimated GFR 83.78 (mL/min/1.73m2)
[2023-09-02] MEDS: Heparin 500 UNITS/5 ML SYRINGE IV (13:40)
== END 2023-09-08 23:59 | disposition home or self-care (01) ==
LOC: INF 03:18
PROVIDERS: PCP Nurse Practitioner Family; Visit Provider Internal Medicine
DX: C50.112 Malignant neoplasm of central portion of left female breast (principal); Z17.0 Estrogen receptor positive status [ER+]; Z45.2 Encounter for adjustment and management of vascular access device
CPT/HCPCS: 36591; 82565

== ENCOUNTER → 2023-12-03 03:21 | Outpatient (CLI) | payer MEDICAID, SELFPAY ==
--- NOTE | 2023-12-03 | DI.CT_ITS ---
Exam(s) CT CHEST W EXAM: CT CHEST W CLINICAL HISTORY: S/P RADIOTHERAPY Z92.3 KNOWN ENLARGED LYMPH NODE TECHNIQUE: Imaging Protocol: Axial computed tomography images with coronal and sagittal reformatted images were created and reviewed CONTRAST MATERIAL: Intravenous: Omnipaque 350 Contrast volume:100 ml. COMPARISON: CT CT CHEST W from 09/02/2023 FINDINGS: Pulmonary parenchyma: Increased densities in the anterior left upper lobe adjacent to the left anteri or ribs, consistent with post radiation therapy changes. No consolidation. No dominant measurable ma ss. Tracheobronchial tree: No bronchiectasis or mucous plugging. Mediastinum and Karen: No change on circumscribed 13 millimeter nodule in the left superior mediastinu m, above the innominate vein. Hiatal hernia again noted. Pleura: No effusion. No pneumothorax. Heart: The heart is not dilated. Mild coronary artery calcifications are seen. Aorta: Thoracic aorta non-dilated. Mild atherosclerotic changes. Upper abdomen: No acute findings.. Bones: Degenerative changes in the spine. Soft tissues: Previously noted port has been removed. There is now skin thickening over the left rachel ast and increased density in the left breast tissue. IMPRESSION: Postradiation changes of the breast and anterior left upper lobe. Stable nodule in the left upper mediastinum. RADIATION DOSE DELIVERED: 770.41mGy.cm Total DLP DATA REPOSITORY: All CT scans at this facility are submitted to the National Radiology Data Registry (NRDR) Dose Index Registry (DIR) with the [employer] ([employer]). RADIATION OPTIMIZATION: All CT scans at this facility use at least one of these dose optimization te chniques: automated exposure control; mA and/or kV adjustment per patient size (includes targeted exa ms where dose is matched to clinical indication); or iterative reconstruction.
[2023-12-03] MEDS: Omnipaque 350 MG/ML 500 ML BTL-Imaging package 70 ML IJ (15:47)
[2023-12-03] MEDS: Normal Saline - Diluent 50 ML VIAL IJ (15:51)
== END ==
PROVIDERS: PCP Nurse Practitioner Family; Visit Provider Radiology Radiation Oncology
DX: Z92.3 Personal history of irradiation (principal)
CPT/HCPCS: 71260

== ENCOUNTER 2023-12-03 04:05 | Outpatient (CLI) | payer MEDICAID, SELFPAY ==
[2023-12-03 15:12] LABS: Absolute Basophil Count 0.03 10^3/uL (0.0-0.2); Absolute Eosinophil Count 0.22 10^3/uL (0.0-0.7); Absolute Lymphocyte Count 1.18 10^3/uL (1.2-3.4); Absolute Monocyte Count 0.66 10^3/uL (0.1-0.8); Absolute Neutrophil Count 2.01 10^3/uL (1.2-6.7); Basophils % 0.7; Eosinophils % 5.4; HCT 41.3 % (36.0-46.0); HGB 13.7 g/dL (11.2-15.7); Lymphocytes % 28.8; MCH 29.3 pg (27.0-33.0); MCHC 33.2 % (32.0-36.0); MCV 88 fL (80-95); MPV 9.2 fL (8.0-11.0); Monocytes % 16.1; Platelet Count 212 10^3/uL (130-400); RBC 4.67 10^6/uL (3.93-5.22); RDW-SD 45.2 fL
[2023-12-03 15:29] LABS: ALT 24 U/L (14-59); AST 19 U/L (15-37); Albumin 3.6 g/dL (3.4-5.0); Alkaline Phosphatase 78 U/L (46-116); Bilirubin, Direct 0.1 mg/dL (0.0-0.2); Bilirubin, Total 0.4 mg/dL (0.2-1.0); C-Reactive Protein 0.24 mg/dL (0.0-0.3); CREATININE 0.9 mg/dL (0.55-1.02); Estimated GFR 72.28 (mL/min/1.73m2); Total Protein 6.9 g/dL (6.4-8.2)
[2023-12-07 13:32] LABS: TB Interpretation Negative (Negative)
[2023-12-07 13:56] LABS: Adalimumab QN with Reflex Ab 7.6 mcg/mL
[2024-01-08 16:15] LABS: Adalimumab Ab <10.0 AU/mL (<14.0)
== END 2023-12-03 04:06 | disposition home or self-care (01) ==
LOC: LBO 04:05
PROVIDERS: PCP Nurse Practitioner Family; Visit Provider Radiology Radiation Oncology
DX: K50.818 Crohn's disease of both small and large intestine with other complication (principal)
CPT/HCPCS: 36415; 80076; 83520; 82565; 85025; 86140; 86480

== ENCOUNTER 2024-05-18 21:43 | Outpatient (REF) | payer MEDICAID, SELFPAY ==
[2024-05-18 22:02] LABS: HCT 46.9 % (36.0-46.0); HGB 15.3 g/dL (11.2-15.7); MCH 29.3 pg (27.0-33.0); MCHC 32.6 % (32.0-36.0); MCV 90 fL (80-95); MPV 10.2 fL (8.0-11.0); Platelet Count 229 10^3/uL (130-400); RBC 5.22 10^6/uL (3.93-5.22); RDW 14.7 % (11.7-14.6); RDW-SD 48.9 fL; WBC 6.73 10^3/uL (4.4-10.8)
[2024-05-18 22:10] LABS: Iron 93 ug/dL (50-170); Total Iron Binding Capacity 386 ug/dL (250-450); Transferrin Sat 24 % (15-50)
[2024-05-18 22:23] LABS: Ferritin 45 ng/mL (8-252); TSH (W/Ref FT4) 2.06 uIU/mL (0.36-3.74)
== END 2024-05-18 21:44 | disposition home or self-care (01) ==
LOC: NCHCN 21:43
PROVIDERS: PCP Nurse Practitioner Family; Visit Provider Nurse Practitioner Family
DX: F41.8 Other specified anxiety disorders (principal)
CPT/HCPCS: 85027; 82728; 83540; 83550; 84443

== ENCOUNTER 2024-07-03 01:30 | Inpatient (IN) | payer MEDICAID, SELFPAY ==
[2024-07-03] VITALS (66 sets, daily range): BP systolic 100–247; BP diastolic 44–150; PULSE 71–126; RESP 10–33; TEMP 35.6–37; O2SAT 83–99; BMI 44.0
[2024-07-03] MEDS: MORPHine 4 MG/ML SYR IVP (02:23)
--- NOTE | 2024-07-03 02:23 | ED.GENADUL_ITS ---
Discharge Plan Discharge Details Chief Complaint: Abd Prob Primary Care Provider: Alida Adams ED Provider: Suzette Panda Home Meds and New Rx's Prescriptions: No Action fluticasone propion-salmeterol [Advair Diskus] 1 EACH blister with device 2 ea Inhalation DAILY verapamil 240 MG tablet extended release 240 mg PO DAILY montelukast 10 MG tablet 10 mg PO DAILY levalbuterol tartrate [Xopenex HFA] 15 GM HFA aerosol inhaler 90 mcg Inhalation Q4H PRN Patient Comments: 03/24/14 pt hasnt used in over a year. Rare use albuterol sulfate 90 mcg/actuation HFA aerosol inhaler 2 puff inhalation Q4H fluticasone propion-salmeterol [Advair HFA] 115-21 mcg/actuation HFA aerosol inhaler 2 puff inhalation DAILY hydrochlorothiazide 25 mg tablet 25 mg PO DAILY ibuprofen 600 MG tablet 600 mg PO Q6H PRN (Reason: Pain) Qty: 20 0RF glucosamine sulfate [Glucosamine] 500 mg Tablet 500 mg PO DAILY paroxetine HCl 20 mg Tablet 40 mg PO DAILY lisinopril 10 mg Tablet 20 mg PO DAILY omega 4-nkx-onb-fish oil [Fish Oil] 1,000 mg (120 mg-180 mg) Capsule 1 cap PO DAILY Humira(CF) Pen 40 mg/0.4 mL pen injector kit 40 mg SUBCUT Q14D omeprazole 40 mg capsule,delayed release(DR/EC) 360 mg PO DAILY Patient Comments: TAKE 1 CAPSULE BY MOUTH EVERY DAY buspirone 5 mg tablet 10 mg PO DAILY Patient Comments: TAKE ONE TABLET BY MOUTH TWICE A DAY AND INCREASE TO THREE TIMES A DAY IF TOLERATED AFTER 7 DAYS letrozole 2.5 mg tablet 2.5 mg PO DAILY HPI General Mode of arrival: ambulatory . Date/Time Provider Initiated Documentation: 07/03/24 02:10 . Limitations to Documentation: no limitations . Information obtained by: patient . HPI Narrative: 63yo F with hx HTN, asthma, crohn's disease, presenting for abdominal pain and N/V. For the past 24 hours has had some moderate lower abdominal pain that feels similar to prior Crohn's flares. Around 8pm began vomiting, and then about an hour prior to arrival developed severe peiumbilicial abdominal pain. Last bowel movement yesterday, loose, non-bloody. Otherwise in her usual state of health with no fevers, chills, rash, dysuria, hematuria, flank pain, vaginal discharge, or other concerns. Related Data Home Medications ?Medication ?Instructions ?Recorded ?Confirmed Advair Diskus 250 mcg-50 mcg/dose 2 ea inhalation DAILY 01/02/14 07/03/24 powder for inhalation (fluticasone propion-salmeterol) Xopenex HFA 45 mcg/actuation 90 mcg inhalation Q4H PRN 01/02/14 07/03/24 aerosol inhaler (levalbuterol tartrate) montelukast 10 mg tablet 10 mg PO DAILY 01/02/14 07/03/24 verapamil 240 mg tablet,extended 240 mg PO DAILY 01/02/14 07/03/24 release ibuprofen 600 mg tablet 600 mg PO Q6H PRN Pain #20 tabs 04/24/17 07/03/24 glucosamine sulfate 500 mg tablet 500 mg PO DAILY 07/27/19 07/03/24 (Glucosamine) lisinopril 10 mg tablet 20 mg PO DAILY 07/27/19 07/03/24 omega 6-tzt-rtw-fish oil 1,000 mg 1 cap PO DAILY 07/27/19 07/03/24 (120 mg-180 mg) capsule (Fish Oil) paroxetine HCl 20 mg tablet 40 mg PO DAILY 07/27/19 07/03/24 adalimumab 40 mg/0.4 mL 40 mg subcut Q14D 06/02/21 07/03/24 subcutaneous pen kit (Humira(CF) Pen) omeprazole 40 mg capsule,delayed 360 mg PO DAILY 07/26/22 07/03/24 release buspirone 5 mg tablet 10 mg PO DAILY 04/18/23 07/03/24 letrozole 2.5 mg tablet 2.5 mg PO DAILY 04/18/23 07/03/24 albuterol sulfate 90 mcg/actuation 2 puff inhalation Q4H 06/17/23 07/03/24 aerosol inhaler fluticasone propionate 115 2 puff inhalation DAILY 06/17/23 07/03/24 mcg-salmeterol 21 mcg/actuation HFA inhaler (Advair HFA) hydrochlorothiazide 25 mg tablet 25 mg PO DAILY 06/17/23 07/03/24 Previous Rx's ?Medication ?Instructions ?Recorded ibuprofen 600 mg tablet 600 mg PO Q6H PRN Pain #20 tabs 04/24/17 Allergies Allergy/AdvReac Type Severity Reaction Status Date / Time methadone Allergy Severe GI Bleeding Unverified 07/03/24 01:44 polyethylene glycol (From Allergy Severe Other (See Unverified 07/03/24 01:44 Golytely) Comment) mercaptopurine Allergy Mild Nausea Unverified 07/03/24 01:44 methylprednisolone (From AdvReac Severe GI bleeding Unverified 07/03/24 01:44 Medrol) Tussin CF, OTC AdvReac Severe Heat Uncoded 07/03/24 01:44 reaction General Stated Complaint: Abd Prob SILVIA: 3 Review of Systems Narrative: see HPI Exam Narrative Exam Narrative: General: Alert, retching. Head: Normocephalic, atraumatic Neck: Trachea midline, ?Neck supple. ENT: ?MMM.? Cardiac: ?RRR, no murmurs appreciated Resp: No respiratory distress. CTAB. Abd: ?Soft, non-distended. TTP of periumbilical region with no rebound or guarding. : ?No suprapubic tenderness. Extremities: ?No deformities.? No peripheral edema. Neurologic: GCS 15. ? Moves all extremities freely against gravity Course Vital Signs Vital signs: Vital Signs Temperature 35.7 C L 07/03/24 01:35 Pulse 100 H 07/03/24 01:35 Respiratory Rate 21 07/03/24 01:35 Blood Pressure 247/150 H 07/03/24 01:35 Pulse Oximetry 96 07/03/24 01:35 Temperature 35.6 C L 07/03/24 02:11 Temperature Source Skin 07/03/24 02:11 Pulse 100 H 07/03/24 02:11 Respiratory Rate 26 H 07/03/24 02:11 Respiratory Effort Normal 07/03/24 01:50 Blood Pressure 148/108 H 07/03/24 02:11 Blood Pressure Position Supine 07/03/24 02:11 Pulse Oximetry 96 07/03/24 02:11 Oxygen Delivery Method Room Air 07/03/24 02:11 Oxygen Flow Rate 0 07/03/24 01:35 Pain Level 7 07/03/24 02:11 Medical Decision Making 63yo F with hx HTN, asthma, crohn's disease, presenting for abdominal pain and N/V. Initial vital signs markedly hypertensive and tachycardiac- per nursing patient was actively vomiting while these were being taken; repeat VS without any intervention when not vomiting much improved with no tachycardia and only mild hypertension. Abdominal exam with periumbilcial tenderness with no peritoneal signs. Will treat symptoms with morphine, zofran; presentation concerning for acute/surgical intrabdominal pathology. Labs reviewed as below, CBC with leukocytosis (nonspecific, possible hemoconcentrated), CMP with mild hypokalemia at 3.3 and slightly elevated gap at 15.6 with no acidosis, lactate 2.2 (likely contributing to gap, may be some component of ketones as well), lipase normal (not pancreatitis). Given 1L IVFB; will repeat lactic after. CT independently reviewed and discussed [facility] reading radiologist, radiology read below with distal SBO and incarcerated possibly strangulated umbilical hernia. On reassessment patient resting comfortably, reports symptoms much improved after morphine/zofran. No longer retching. Repeat abdominal exam again with soft abdomen, no overlying skin changes, no palpable hernia though exam is limited 2/t body habitus. Remains non-peritoneal. Discussed with surgery/Dr. Garrido ; patient accepted for admission, requested bridging orders be placed including zosyn, NG tube, mIVF, morphine, and zofran which was done. Awaiting transfer to the floor. Imaging Data Radiologic Study: Imaging: CT Scan Radiologist's impression: IMPRESSION: 1. Moderate hiatal hernia. Mild fluid distension of the distal esophagus compatible with gastroesophageal reflux. 2. High-grade distal small bowel obstruction secondary to an incarcerated umbilical hernia containing a short loop small bowel which is thickened and inflamed, compatible with strangulation. 3. Trace volume ascites. Lab Data Lab results reviewed: Yes I reviewed the patient's lab results. Labs: Laboratory Tests Range/Units 07/03/ 02:25 WBC (4.4-10.8) 10^3/uL 15.13 H RBC (3.93-5.22) 10^6/uL 5.76 H Hgb (11.2-15.7) g/dL 17.0 H Hct (36.0-46.0) % 49.3 H MCV (80-95) fL 86 MCH (27.0-33.0) pg 29.5 MCHC (32.0-36.0) % 34.5 RDW (11.7-14.6) % 13.9 Plt Count (130-400) 10^3/uL 239 MPV (8.0-11.0) fL 9.5 Immature Gran % % 0.3 Neutrophils % % 88.6 Lymphocytes % % 7.7 Monocytes % % 3.0 Eosinophils % % 0.1 Basophils % % 0.3 Nucleated RBC % (0.0-0.3) % 0.0 Absolute Neutrophils (1.2-6.7) 10^3/uL 13.41 H Absolute Lymphocytes (1.2-3.4) 10^3/uL 1.17 L Absolute Monocytes (0.1-0.8) 10^3/uL 0.45 Absolute Eosinophils (0.0-0.7) 10^3/uL 0.02 Absolute Basophils (0.0-0.2) 10^3/uL 0.05 VBG Lactate (0.6-1.4) mmol/L 2.2 H* Sodium (136-145) mmol/L 136 Potassium (3.5-5.1) mmol/L 3.3 L Chloride (98-107) mmol/L 99 Carbon Dioxide (21.0-32.0) mmol/L 21.4 Anion Gap (3-11) mmol/L 15.6 H BUN (7-18) mg/dL 16 Creatinine (0.55-1.02) mg/dL 0.8 Est GFR (CKD-EPI 2020) (mL/min/1.73m2) 83.26 Glucose (74-106) mg/dL 219 H Calcium (8.5-10.1) mg/dL 9.6 Total Bilirubin (0.2-1.0) mg/dL 0.74 AST (15-37) U/L 23 ALT (14-59) U/L 26 Alkaline Phosphatase (46-116) U/L 109 Total Protein (6.4-8.2) g/dL 8.1 Albumin (3.4-5.0) g/dL 4.0 Lipase (16-77) U/L 24 Quality:[facility] Health Related Social Needs: No Data to Display PFSH All Active Problems (Updated 06/26/23 @ 16:14 by Vy Sifuentes MD) Tracheobronchomalacia (Acute) Crohns disease (Chronic) Hypertension (Chronic) Chest pain (Acute) Asthma (Chronic) Sleep apnea (Chronic) Chest pain (Acute) Medical History (Updated 06/26/23 @ 16:14 by Vy Sifuentes MD) Mood disorder Malignant neoplasm of left breast estrogen receptor positive [place]03[place]22 [place] [facility] [place]2 [place] left breast (L#2) IDC, intermediate grade and DCIS intermediate grade. Hx of migraines GERD (gastroesophageal reflux disease) Abdominal pain Port-A-Cath in place medcomp power injectible profuse port 8fr single lumen Social History Smoking/Tobacco Use Status: Never Smoking risk assessment performed?: Yes Alcohol Intake: current Alcohol Intake frequency: holidays/special occasions only Drug use: Never Substance use type: does not use Housing: house Do you feel safe at home: Yes Do you feel safe in your relationship?: Yes
[2024-07-03] MEDS: Ondansetron 4 MG/2 ML VIAL IVP ×2 (02:24→05:12)
[2024-07-03 02:38] LABS: Lactate 2.2 mmol/L (0.6-1.4)
[2024-07-03 02:41] LABS: Abs Immature Grans 0.05 10^3/uL (0.0-0.06); Absolute Neutrophil Count 13.41 10^3/uL (1.2-6.7); Basophils % 0.3 %; Eosinophils % 0.1 %; HCT 49.3 % (36.0-46.0); Immature Grans % 0.3 %; Lymphocytes % 7.7 %; MCH 29.5 pg (27.0-33.0); MCHC 34.5 % (32.0-36.0); MCV 86 fL (80-95); MPV 9.5 fL (8.0-11.0); Neutrophils % 88.6 %; Platelet Count 239 10^3/uL (130-400); RBC 5.76 10^6/uL (3.93-5.22); RDW 13.9 % (11.7-14.6); RDW-SD 42.9 fL; WBC 15.13 10^3/uL (4.4-10.8)
[2024-07-03 02:43] LABS: Absolute Basophil Count 0.05 10^3/uL (0.0-0.2); Absolute Eosinophil Count 0.02 10^3/uL (0.0-0.7); Absolute Lymphocyte Count 1.17 10^3/uL (1.2-3.4); Absolute Monocyte Count 0.45 10^3/uL (0.1-0.8)
[2024-07-03 02:54] LABS: ALT 26 U/L (14-59); AST 23 U/L (15-37); Alkaline Phosphatase 109 U/L (46-116); Anion Gap 15.6 mmol/L (3-11); BUN 16 mg/dL (7-18); Bilirubin, Total 0.74 mg/dL (0.2-1.0); CO2 21.4 mmol/L (21.0-32.0); CREATININE 0.8 mg/dL (0.55-1.02); Chloride 99 mmol/L (98-107); Estimated GFR 83.26 (mL/min/1.73m2); Glucose 219 mg/dL (74-106); Lipase 24 U/L (16-77); Potassium 3.3 mmol/L (3.5-5.1); Sodium 136 mmol/L (136-145); Total Protein 8.1 g/dL (6.4-8.2)
--- NOTE | 2024-07-03 02:59 | DI.CT_ITS ---
Exam(s) CT ABDOMEN PELVIS W EXAM: CT ABDOMEN PELVIS W CLINICAL HISTORY: severe periumbilcal abd pain, hx crohns. TECHNIQUE: Imaging Protocol: Axial computed tomography images with coronal and sagittal reformatted images were created and reviewed CONTRAST MATERIAL: Intravenous: Omnipaque 350 Contrast volume:100 ml Oral: / no COMPARISON: CT CT CHEST PE CTA from 07/27/[address] CHEST PE CTA from 06/02/[address] CHEST W from 12/03/2023 FINDINGS: ABDOMEN and PELVIS: Lung Bases: No acute findings. Mild basilar atelectasis. Moderate size hiatal hernia. Fluid in l ower esophagus could indicate reflux. Liver: Mild fatty infiltration. No suspicious mass. Gallbladder and biliary tract: No radiodense calculus. No biliary dilation. Pancreas: Normal density. No abnormal calcifications or inflammatory process. No evidence of mass. Spleen: Normal. Kidneys: Normal size, contour and axis. No radiodense stones. No obstructive uropathy. No suspicious masses seen. Adrenal glands: No masses seen. Vasculature: Abdominal aorta non-dilated. Soft tissues: Umbilical hernia containing knuckle of small bowel. There is thickening of the wall wiseman ggesting strangulation. The bowel loops distal to this level are decompressed. Proximal small bowel is dilated. Findings consistent with high-grade obstruction. Colon mainly decompressed. Bladder: No gross wall thickening. No calculi.No focal mass. Bowel: No obstruction. No bowel wall thickening. Appendix normal. Peritoneal cavity: Small amount of fluid in the cul-de-sac. No focal collection. No mesenteric infla mmatory response. Bones: Unremarkable for age. Reproductive organs: Unremarkable. Lymph nodes: No pathologically enlarged lymph nodes. IMPRESSION:: Small-bowel obstruction secondary to incarcerated umbilical hernia containing knuckle o f small bowel. RADIATION DOSE DELIVERED: Total DLP DATA REPOSITORY: All CT scans at this facility are submitted to the National Radiology Data Registry (NRDR) Dose Index Registry (DIR) with the [employer] (ACR). RADIATION OPTIMIZATION: All CT scans at this facility use at least one of these dose optimization te chniques: automated exposure control; mA and/or kV adjustment per patient size (includes targeted exa ms where dose is matched to clinical indication); or iterative reconstruction.
[2024-07-03] MEDS: Omnipaque 350 MG/ML 100 ML BTL IJ (03:01)
[2024-07-03] MEDS: Normal Saline - Diluent 50 ML VIAL IJ (03:01)
[2024-07-03 03:04] LABS: Calcium 9.6 mg/dL (8.5-10.1)
[2024-07-03] MEDS: Lidocaine 2% Viscous 15 ML CUP ×2 (03:05→04:33)
[2024-07-03] MEDS: Mylanta Suspension 30 ML CUP (03:05)
[2024-07-03] MEDS: Sucralfate 1 GM TAB PO (03:06)
[2024-07-03] MEDS: Normal Saline 1,000 ML 1000 ML IV (03:06)
--- NOTE | 2024-07-03 03:30 | DI.VRAD_ITS ---
Addendum created by Harvey Rose MD on 07/03/2024 3:33:42 AM EDT: Findings discussed with CLARISA BOOTH MD at time of interpretation. Initial report created on 07/03/2024 3:30:05 AM EDT: PROCEDURE INFORMATION: Exam: CT Abdomen And Pelvis With Contrast Exam date and time: 07/03/2024 2:45 AM Age: 63 years old Clinical indication: Other: Severe periumbilcal abd pain, HX crohns TECHNIQUE: Imaging protocol: Computed tomography of the abdomen and pelvis with contrast. Contrast material: OMNIPAQUE 350; Contrast volume: 100 ml; Contrast route: INTRAVENOUS (IV); COMPARISON: CR XR HIP PELVIS ADULT BL 06/07/2021 8:23 AM FINDINGS: Diaphragm: Moderate hiatal hernia. Mild fluid distension of the distal esophagus compatible with gastroesophageal reflux. Liver: Hepatic steatosis. Gallbladder and biliary ducts: Normal. No calcified stones. No ductal dilation. Pancreas: Unremarkable. Spleen: Normal. Adrenal glands: Normal. No mass. Kidneys and ureters: Normal. No hydronephrosis. Stomach and bowel: Unremarkable. No bowel wall thickening or intestinal obstruction. Appendix: Normal appendix. Intraperitoneal space: Trace volume ascites. Vasculature: Unremarkable. Lymph nodes: Unremarkable. Urinary bladder: Unremarkable as visualized. Reproductive: Unremarkable as visualized. Bones/joints: Unremarkable. No acute fracture. Soft tissues: High-grade distal small bowel obstruction secondary to an incarcerated umbilical hernia containing a short loop small bowel which is thickened and inflamed, compatible with strangulation. IMPRESSION: 1. Moderate hiatal hernia. Mild fluid distension of the distal esophagus compatible with gastroesophageal reflux. 2. High-grade distal small bowel obstruction secondary to an incarcerated umbilical hernia containing a short loop small bowel which is thickened and inflamed, compatible with strangulation. 3. Trace volume ascites. Dictated and Authenticated by: Harvey Rose MD. Ordering:P.BOCJ Amarilys Bradford MD
--- NOTE | 2024-07-03 03:45 | RT.EKG_ITS ---
APPROVED REPORT Exam: Resting ECG Reason for Exam: preop Patient Location: E HR:90 bpm ECG Measurements Heart Rate 90 AXIS OK 166 P 34 QRSd 81 QRS -20 QT 370 T -26 QTc 453 Conclusion Sinus rhythm...normal P axis, V-rate 60- 99 Inferior infarct, old...Q >35mS, II III aVF
--- NOTE | 2024-07-03 04:48 | NUR.NOTE ---
EKG was ordered by Dr. Panda to be done pre-op prior to surgery.
[2024-07-03 04:56] LABS: Lactate 2.4 mmol/L (0.6-1.4)
--- NOTE | 2024-07-03 04:56 | DI.RAD_ITS ---
Exam(s) XR PORTABLE CHEST AP POST LINE EXAM: XR PORTABLE CHEST AP POST LINE CLINICAL HISTORY: line placement TECHNIQUE: 2D digital imaging was performed. COMPARISON: CT CT CHEST W from 12/03/[address] ABDOMEN PELVIS W from 07/03/2024 FINDINGS: Exam is limited by under penetration. Monitoring leads overlie the chest. A nasogastric tube is been inserted. The tip lies below the diaphragm. LUNGS: Grossly clear where visualized. No pleural abnormality seen. HEART: Mildly enlarged. AORTA: Normal diameter. BONES: Unremarkable for age. Soft tissues: Unremarkable. IMPRESSION: Nasogastric tube projects in fundus of stomach. DATA REPOSITORY: RADIATION DOSE DELIVERED:
--- NOTE | 2024-07-03 05:05 | DI.VRAD_ITS ---
PROCEDURE INFORMATION: Exam: XR Chest Exam date and time: 07/03/2024 4:52 AM Age: 63 years old Clinical indication: Other: Ng tube placement. TECHNIQUE: Imaging protocol: Radiologic exam of the chest. Views: 1 view. COMPARISON: CT CHEST W 12/03/2023 3:48 PM FINDINGS: Tubes, catheters and devices: NG tube tip is difficult to visualize due to patient body habitus but the tip appears to be in the expected position of the proximal stomach. Lungs: Unremarkable. No consolidation. Pleural spaces: Unremarkable. No pleural effusion. No pneumothorax. Heart/Mediastinum: Unremarkable. No cardiomegaly. Bones/joints: Unremarkable. IMPRESSION: NG tube tip is difficult to visualize due to patient body habitus but the tip appears to be in the expected position of the proximal stomach. Dictated and Authenticated by: Harvey Rose MD. Ordering:CELESTINE Bradford MD
[2024-07-03] MEDS: MORPHine 2 MG/ML SYR 4 MG IVP ×4 (05:11→17:40)
--- NOTE | 2024-07-03 05:32 | W.PC.ACHO ---
Registration Status: Primary Language: Preferred Language: ED Information & Data Chief Complaint Abd Prob 07/03/24 02:23 Triage Note pain since last night in 07/03/24 01:35 upper abd now really bad and vomiting last bm yesterday not normal diarrhea due to crohns Medical / Surgical History (Last Updated 06/17/23 @ 12:51 by Fang Arreaga) Mood disorder Malignant neoplasm of left breast Hx of migraines GERD (gastroesophageal reflux disease) Abdominal pain Port-A-Cath in place Most Recent Vital Signs Temperature 35.6 C L 07/03/24 02:11 Temperature Source Skin 07/03/24 02:11 Pulse 96 H 07/03/24 05:01 Pulse 94 H 07/03/24 05:10 Respiratory Rate 15 07/03/24 05:10 Respiratory Effort Normal 07/03/24 01:50 Blood Pressure 228/128 H 07/03/24 05:01 Blood Pressure Mean 166 07/03/24 05:01 Blood Pressure Position Supine 07/03/24 02:11 Pulse Oximetry 95 07/03/24 05:10 Oxygen Delivery Method Room Air 07/03/24 02:11 Oxygen Flow Rate 0 07/03/24 01:35 Pain Level 5 07/03/24 05:11 Comment pain is back up. 07/03/24 05:01 Allergies methadone Allergy (Severe, Unverified 07/03/24 01:44) GI Bleeding rash vomiting polyethylene glycol (From Golytely) Allergy (Severe, Unverified 07/03/24 01:44) Other (See Comment) hypothermia mercaptopurine Allergy (Mild, Unverified 07/03/24 01:44) Nausea methylprednisolone (From Medrol) Adverse Reaction (Severe, Unverified 07/03/24 01:44) GI bleeding Tussin CF, OTC Adverse Reaction (Severe, Uncoded 07/03/24 01:44) Heat reaction Active Medications Generic Name Dose Route Start Last Admin Trade Name Freq PRN Reason Stop Dose Admin Iohexol 100 ml 07/03/24 03:15 07/03/24 03:01 Omnipaque 350 Mg/Ml 100 Ml Btl IJ 08/02/24 23:59 100 ml DIRECTED GRABIEL Administration Morphine Sulfate 4 mg 07/03/24 03:37 07/03/24 05:11 Morphine 2 Mg/Ml Syr IVP 4 mg Q1H PRN PRN Administration Ondansetron HCl 4 mg 07/03/24 03:37 07/03/24 05:12 Ondansetron 4 Mg/2 Ml Vial IVP 4 mg Q4H PRN PRN Administration Sodium Chloride 50 ml 07/03/24 03:15 07/03/24 03:01 Normal Saline - Diluent 50 Ml Vial IJ 50 ml .FOR DI USE GRABIEL Administration IV IV Catheter Type [Left Forearm Peripheral IV ] IV Catheter Gauge [Left 18 Forearm] Diet Orders Category Date Time Status Nothing Per Oral [DIET] Nutrition 07/03/24 Breakfast Active Diagnostics 07/03/24 07/03/24 Range/Units 04:50 02:25 WBC 15.13 H (4.4-10.8) 10^3/uL RBC 5.76 H (3.93-5.22) 10^6/uL Hgb 17.0 H (11.2-15.7) g/dL Hct 49.3 H (36.0-46.0) % MCV 86 (80-95) fL MCH 29.5 (27.0-33.0) pg MCHC 34.5 (32.0-36.0) % RDW 13.9 (11.7-14.6) % Plt Count 239 (130-400) 10^3/uL MPV 9.5 (8.0-11.0) fL Immature Gran % 0.3 % Neutrophils % 88.6 % Lymphocytes % 7.7 % Monocytes % 3.0 % Eosinophils % 0.1 % Basophils % 0.3 % Nucleated RBC % 0.0 (0.0-0.3) % Absolute Neutrophils 13.41 H (1.2-6.7) 10^3/uL Absolute Lymphocytes 1.17 L (1.2-3.4) 10^3/uL Absolute Monocytes 0.45 (0.1-0.8) 10^3/uL Absolute Eosinophils 0.02 (0.0-0.7) 10^3/uL Absolute Basophils 0.05 (0.0-0.2) 10^3/uL VBG Lactate 2.4 H* 2.2 H* (0.6-1.4) mmol/L Sodium 136 (136-145) mmol/L Potassium 3.3 L (3.5-5.1) mmol/L Chloride 99 (98-107) mmol/L Carbon Dioxide 21.4 (21.0-32.0) mmol/L Anion Gap 15.6 H (3-11) mmol/L BUN 16 (7-18) mg/dL Creatinine 0.8 (0.55-1.02) mg/dL Est GFR (CKD-EPI 2020) 83.26 (mL/min/1.73m2) Glucose 219 H (74-106) mg/dL Calcium 9.6 (8.5-10.1) mg/dL Total Bilirubin 0.74 (0.2-1.0) mg/dL AST 23 (15-37) U/L ALT 26 (14-59) U/L Alkaline Phosphatase 109 (46-116) U/L Total Protein 8.1 (6.4-8.2) g/dL Albumin 4.0 (3.4-5.0) g/dL Lipase 24 (16-77) U/L ABO/Rh Pending Antibody Screen Pending Intake and Output - 24 Hour Total 07/03/24 01:30 thru 07/03/24 04:39 Intake Total 1000 Output Total 200 Balance 800 Weight 123.831 kg Intake: IV 1000 Output: Gastric Drainage 200 Right Nare 200 Other: Gastric Occult Blood Right Nare Negative Falls Risk Assessment History of Falls No History 07/03/24 02:11 Contributing Factors No Factors 07/03/24 02:11 Ambulatory Aids Independent 07/03/24 02:11 Tubes/Lines None 07/03/24 02:11 Gait Evaluation No gait disturbance 07/03/24 02:11 Cognition No cognitive impairment 07/03/24 02:11 Fall Total Score 0 07/03/24 02:11 Level of Risk Standard/Low Risk 07/03/24 02:11 Notes 07/03/24 04:48 Nursing Notes by Vilma Alba EKG was ordered by Dr. Panda to be done pre-op prior to surgery. Initialized on 07/03/24 04:48 - END OF NOTE v v v v v v v v v Sending and/or Receiving Nurses: Please use comment section below to note any information pertinent to the patient hand-off not included above. Information / Comments: Pt history of Chron's. She has had symptoms for the last 24 hours leading to recen nausea and vomit. Abdomen distended and hard with hypoactive bowel sounds. Imaging shows hernia with bowel incarcerated. yesterday she had diarrhea. 18 in left forearm. 2 doses of morphine 4 mg. 1000 mL Normal Saline. 2 doses of 4 mg Zofran. Sucralfate 1gram PO. GI cocktail. She has 14 armenian NG 51 cm at nares on moderate intermediate. 250 out so far. Hypertensive with pain and anxiety. 228/128 most current up from 122/98. 2.2 lactate --> 2.4 lactate after bolus 3.3 potassium 15.13 WBC Report received from: Karyn
[2024-07-03] MEDS: PIPERACILLIN/TAZO 3.375 GM in Normal Saline 50 ML IVPB (06:03)
[2024-07-03] MEDS: Normal Saline Flush 10 ML SYR IVP ×5 (06:04→22:16)
[2024-07-03] MEDS: Lactated Ringers 1,000 ML 150 ML IV (07:04)
--- NOTE | 2024-07-03 07:51 | ANES.PREOP_ITS ---
General Info Date of Service Date Performed: 07/03/24 Height: 5 ft 6 in Weight: 123.831 kg Body Mass Index (BMI): 44.0 Surgical Procedure: Operation Date: 07/03/24 10:00 Proposed Procedure Side Surgeon p Hernia Incisional/Ventral Laparoscopic Gilberto Garrido MD Meds Allergies and Home Medications Allergies Allergy/AdvReac Type Severity Reaction Status Date / Time methadone Allergy Severe GI Bleeding Unverified 07/03/24 01:44 polyethylene glycol (From Allergy Severe Other (See Unverified 07/03/24 01:44 Golytely) Comment) mercaptopurine Allergy Mild Nausea Unverified 07/03/24 01:44 methylprednisolone (From AdvReac Severe GI bleeding Unverified 07/03/24 01:44 Medrol) Debo SARGENT, OTC AdvReac Severe Heat Uncoded 07/03/24 01:44 reaction Home Medication ?Medication ?Instructions ?Recorded Advair Diskus 250 mcg-50 mcg/dose 2 ea inhalation DAILY 01/02/14 powder for inhalation (fluticasone propion-salmeterol) Xopenex HFA 45 mcg/actuation 90 mcg inhalation Q4H PRN 01/02/14 aerosol inhaler (levalbuterol tartrate) montelukast 10 mg tablet 10 mg PO DAILY 01/02/14 verapamil 240 mg tablet,extended 240 mg PO DAILY 01/02/14 release ibuprofen 600 mg tablet 600 mg PO Q6H PRN Pain #20 tabs 04/24/17 glucosamine sulfate 500 mg tablet 500 mg PO DAILY 07/27/19 (Glucosamine) lisinopril 10 mg tablet 20 mg PO DAILY 07/27/19 omega 5-gto-zdu-fish oil 1,000 mg 1 cap PO DAILY 07/27/19 (120 mg-180 mg) capsule (Fish Oil) paroxetine HCl 20 mg tablet 40 mg PO DAILY 07/27/19 adalimumab 40 mg/0.4 mL 40 mg subcut Q14D 06/02/21 subcutaneous pen kit (Humira(CF) Pen) omeprazole 40 mg capsule,delayed 360 mg PO DAILY 07/26/22 release buspirone 5 mg tablet 10 mg PO DAILY 04/18/23 letrozole 2.5 mg tablet 2.5 mg PO DAILY 04/18/23 albuterol sulfate 90 mcg/actuation 2 puff inhalation Q4H 06/17/23 aerosol inhaler fluticasone propionate 115 2 puff inhalation DAILY 06/17/23 mcg-salmeterol 21 mcg/actuation HFA inhaler (Advair HFA) hydrochlorothiazide 25 mg tablet 25 mg PO DAILY 06/17/23 Current Visit Medications: Current Medications Generic Name Dose Route Start Last Admin Trade Name Freq PRN Reason Stop Dose Admin Ringer's Solution 1,000 mls @ 150 mls/hr 07/03/24 03:45 07/03/24 07:04 IV 150 mls/hr INFUSION GRABIEL Administration IV Miscellaneous Supplies 1 each 07/03/24 03:45 Iv Access-Emergency Dept IV DIRECTED GRABIEL Iohexol 100 ml 07/03/24 03:15 07/03/24 03:01 Omnipaque 350 Mg/Ml 100 Ml Btl IJ 08/02/24 23:59 100 ml DIRECTED GRABIEL Administration Morphine Sulfate 4 mg 07/03/24 03:37 07/03/24 07:16 Morphine 2 Mg/Ml Syr IVP 4 mg Q1H PRN PRN Administration Ondansetron HCl 4 mg 07/03/24 03:37 07/03/24 05:12 Ondansetron 4 Mg/2 Ml Vial IVP 4 mg Q4H PRN PRN Administration Sodium Chloride 50 ml 07/03/24 03:15 07/03/24 03:01 Normal Saline - Diluent 50 Ml Vial IJ 50 ml .FOR DI USE GRABIEL Administration Sodium Chloride 0 ml 07/03/24 03:37 07/03/24 07:17 Normal Saline Flush 10 Ml Syr IVP 10 ml PRN PRN Administration Sodium Chloride 0 ml 07/03/24 08:30 Normal Saline Flush 10 Ml Syr IVP BID GRABIEL Sodium Chloride 0 ml 07/03/24 03:37 Normal Saline 10 Ml Vial IJ DIRECTED PRN PFSH Active Problems Active Problems: Problem Status Onset Code Tracheobronchomalacia Acute J39.8 Crohns disease Chronic K50.90 Hypertension Chronic I10 Chest pain Acute R07.9 Asthma Chronic J45.909 Sleep apnea Chronic G47.30 Chest pain Acute R07.9 Medical History Medical History (Updated 07/03/24 @ 08:16 by Gilberto Garrido MD) Mood disorder Malignant neoplasm of left breast estrogen receptor positive 10/03/22 biopsies [facility]: ER+/KS+HR-2 negative left breast (L#2) IDC, intermediate grade and DCIS intermediate grade. Hx of migraines GERD (gastroesophageal reflux disease) Abdominal pain Port-A-Cath in place medcomp power injectible profuse port 8fr single lumen Tobacco Smoking/Tobacco Use Status: Never Alcohol Alcohol Intake: current Alcohol intake frequency: holidays/special occasions only Substance Use Substance use: Never Substance use type: does not use Vital Signs and Lab Results Vital Signs Most Recent Vital Signs in EMR: Most Recent Vital Signs Temp Pulse Resp BP Pulse Ox 36.5 C 90 19 162/93 H 93 07/03/24 07:38 07/03/24 07:38 07/03/24 07:38 07/03/24 07:38 07/03/24 07:38 Lab Results 07/03/24 02:25 07/03/24 02:25 Blood Type / Crossmatch: 2 Antibody Screen NEGATIVE 07/03/24 Complete Blood Count: 2 White Blood Count 15.13 10^3/uL (4.4-10.8) H 07/03/24 02:25 Red Blood Count 5.76 10^6/uL (3.93-5.22) H 07/03/24 02:25 Hemoglobin 17.0 g/dL (11.2-15.7) H 07/03/24 02:25 Hematocrit 49.3 % (36.0-46.0) H 07/03/24 02:25 Platelet Count 239 10^3/uL (130-400) 07/03/24 02:25 Venous Blood Lactate 2.4 mmol/L (0.6-1.4) H* 07/03/24 04:50 Complete Metabolic Panel: 2 Sodium 136 mmol/L (136-145) 07/03/24 02:25 Potassium 3.3 mmol/L (3.5-5.1) L 07/03/24 02:25 Chloride 99 mmol/L (98-107) 07/03/24 02:25 Carbon Dioxide 21.4 mmol/L (21.0-32.0) 07/03/24 02:25 BUN 16 mg/dL (7-18) 07/03/24 02:25 Creatinine 0.8 mg/dL (0.55-1.02) 07/03/24 02:25 Est GFR (CKD-EPI 2020) 83.26 (mL/min/1.73m2) 07/03/24 02:25 Calcium 9.6 mg/dL (8.5-10.1) 07/03/24 02:25 Albumin 4.0 g/dL (3.4-5.0) 07/03/24 02:25 Glucose 219 mg/dL (74-106) H 07/03/24 02:25 Liver Function Panel: 2 Alanine Aminotransferase (ALT/SGPT) 26 U/L (14-59) 07/03/24 02: 25 Aspartate Amino Transf (AST/SGOT) 23 U/L (15-37) 07/03/24 02:25 Coagulation Panel: 2 No Data to Display Cardiac Panel: 2 No Data to Display Arterial Blood Gas: 2 No Data to Display Venous Blood Gas: 2 No Data to Display Pancreas Panel: 2 Lipase 24 U/L (16-77) 07/03/24 02:25 Thyroid Panel: 2 No Data to Display Infectious Disease: 2 No Data to Display Blood Cultures: 2 No Data to Display Toxicology Panel: 2 No Data to Display Anesthesia Assessment and Plan Anesthesia History Personal History: No History of Anesthesia Complications Family History: No Family History of Anesthesia Complications Exercise Tolerance Exercise Tolerance: Metabolic Equivalents>4 Pertinent Negatives Pertinent Negatives: No Symptoms of GERD Cardiac & Pulmonary Exam Cardiac Exam: Normal S1/S2 Heart Sounds Pulmonary Exam: Clear Bilateral Breath Sounds Implantable Cardiac Device Does patient have a Pacemaker or an ICD?: No Airway Exam Known Difficult Airway: No Mallampati Class: 4 Mouth Opening: Normal (> 3cm) Thyromental Distance: Less than 3 cm Neck Range of Motion: Full ROM Neck Circumference: Normal Teeth Condition: Generalized Poor Dentition, Loose or Chipped and Dental Caries ASA Classification ASA Score: ASA 3 Emergency Case?: Yes NPO Status NPO Status: NPO Clears >2 hours, Solids >8 hours Anesthesia Plan Resuscitation Status: Full Code Anesthesia Technique: General Anesthesia Airway Planned: Endotracheal Tube Monitors Used: Standard Monitors Preoperative Comments:: Reports some awareness in the past (T&A as a child), reports aspiration with [place] at another facilitty (do not have records), does not wish any blood as is Jehovahs witness
--- NOTE | 2024-07-03 08:05 | SCONE_ITS ---
Date of service: 07/03/24 Time of Service: 04:00 Assessment and Plan Assessment and plan (1) Incarcerated hernia: Status: Acute Assessment and plan: 63-year-old woman with a small bowel obstruction secondary to an acutely incarcerated umbilical hernia. Sounds like this has been going on for about 24 hours or so. Operative intervention/exploration is warranted to reduce the hernia and fix the defect. She is at increased risk for wound infection, wound dehiscence, hernia recurrence among other things such as fistula formation, etc., because of her morbid obesity and Crohn's disease and being on Humira (immunocompromise). Overall plan: Diagnostic laparoscopy, laparoscopic ventral hernia repair History of Present Illness Narrative: Patient is a 63-year-old woman who is morbidly obese and has Crohn's disease (on Humira). She has been having progressive, worsening abdominal pain for about 24 hours or so. Last night she started profusely vomiting. Earlier this morning she then decided she come to the emergency department for evaluation. In the ER a CT scan was performed which showed a small bowel obstruction and an incarcerated umbilical hernia as the obstruction point. She also had a leukocytosis and was dehydrated. The ER physician attempted to reduce the hernia but was uncertain if she was successful due to the patient's body habitus. An NG tube was placed to decompress the small bowel. She was given IV fluid for resuscitation and antibiotics because the leukocytosis. PFSH All Active Problems (Updated 07/03/24 @ 08:16 by Gilberto Garrido MD) Incarcerated hernia (Acute) Tracheobronchomalacia (Acute) Crohns disease (Chronic) Hypertension (Chronic) Chest pain (Acute) Asthma (Chronic) Sleep apnea (Chronic) Chest pain (Acute) Medical History (Updated 07/03/24 @ 08:16 by Gilberto Garrido MD) Mood disorder Malignant neoplasm of left breast estrogen receptor positive 10/03/22 [place] [facility] [place] ER+/[place]+HR-2 negative left breast (L#2) IDC, intermediate grade and DCIS intermediate grade. Hx of migraines GERD (gastroesophageal reflux disease) Abdominal pain Port-A-Cath in place medcomp power injectible profuse port 8fr single lumen Social History Smoking/Tobacco Use Status: Never Smoking risk assessment performed?: Yes Alcohol Intake: current Alcohol Intake frequency: holidays/special occasions only Drug use: Never Substance use type: does not use Housing: house Do you feel safe at home: Yes Do you feel safe in your relationship?: Yes Results Last Vital Signs Temp 97.7 F 07/03/24 07:38 Pulse 90 07/03/24 07:38 Resp 19 07/03/24 07:38 BP 162/93 H 07/03/24 07:38 Pulse Ox 93 07/03/24 07:38 Labs 07/03/24 02:25 07/03/24 02:25 Labs: Laboratory Results - last 24 hr 07/03/24 07/03/24 02:25 04:50 WBC 15.13 H RBC 5.76 H Hgb 17.0 H Hct 49.3 H MCV 86 MCH 29.5 MCHC 34.5 RDW 13.9 Plt Count 239 MPV 9.5 Immature Gran % 0.3 Neutrophils % 88.6 Lymphocytes % 7.7 Monocytes % 3.0 Eosinophils % 0.1 Basophils % 0.3 Nucleated RBC % 0.0 Absolute Neutrophils 13.41 H Absolute Lymphocytes 1.17 L Absolute Monocytes 0.45 Absolute Eosinophils 0.02 Absolute Basophils 0.05 VBG Lactate 2.2 H* 2.4 H* Sodium 136 Potassium 3.3 L Chloride 99 Carbon Dioxide 21.4 Anion Gap 15.6 H BUN 16 Creatinine 0.8 Est GFR (CKD-EPI 2020) 83.26 Glucose 219 H Calcium 9.6 Total Bilirubin 0.74 AST 23 ALT 26 Alkaline Phosphatase 109 Total Protein 8.1 Albumin 4.0 Lipase 24 ABO/Rh O Positive Antibody Screen NEGATIVE
--- NOTE | 2024-07-03 09:45 | INITIAL_ITS ---
Care Management Initial Assmt Initial Assessment Reason for Hospitalization: Incarcerated hernia with SBO Functional Status/Living Situation Patient Presentation: Parris was lying in bed when CM met with her. She was very pleasant in [facility] and easily engaged with CM. Parris stated that she is feeling much, much better. She went to the OR this morning for a laparoscopic ventral hernia repair with mesh. Per Parris, the procedure went very well and she anticipates being discharged home tomorrow. She was started on a clear liquid diet and was tolerating fluids at the time of the visit. Parris had a room full of visitors this afternoon and informed CM that she has a very strong support system of both relatives and friends. She does not believe she will need any new services when discharged. Town of Residence: Parris lives in [place] in an old farmhouse with her , her 18 year old daughter and her 44 year old daughter. She also has a son close by. Resides with: Spouse (Poncho) Natural Supports: family and friends Employment Status: Employed (Melita Berman is self employed. 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.) Instrumental Activities of Daily Living (ADLs): Independent Medications Medication Management: No Issues/Barriers identified Advance Directives Advance Directives: Do you have an Advance Directive: N 05/13/23 14:25 AD On File at [facility]: N 05/13/23 14:25 Date Asked 07/03/24 07/03/24 08:31 AD Date Reviewed COLST On File at [facility] COLST Date Scanned Code Status Resuscitation Status Full Code Insurance Coverage/Financial Issues Insurance: Medicaid Financial Assist 100 Care Team Visit Care Team Role Provider Type Alida Bryan Primary Care Provider NURSE PRACTITIONER Suzette Panda MD Emergency Provider [facility] STAFF PHYSICIAN Gilberto Garrido MD Admit Provider [facility] STAFF PHYSICIAN Attending Provider Discharge Potential Discharge Needs: PCP F/U Appt and Surgical F/U Appt Anticipated Barriers to Discharge: Medical Status Patient/Family Education Needs: Review discharge instructions, discuss Ask Me Three Transportation: Private vehicle Plan: Anticipate Parris will be discharged home with no new services when medically stable. She will follow up with her surgeon, PCP and plan of care and transport with family. CM will follow and continue to assess for discharge needs. PFSH All Active Problems (Updated 07/03/24 @ 08:16 by Gilberto Garrido MD) Incarcerated hernia (Acute) Tracheobronchomalacia (Acute) Crohns disease (Chronic) Hypertension (Chronic) Chest pain (Acute) Asthma (Chronic) Sleep apnea (Chronic) Chest pain (Acute) Medical History (Updated 07/03/24 @ 08:16 by Gilberto Garrido MD) Mood disorder Malignant neoplasm of left breast estrogen receptor positive 10/03/22 [place] [facility] [place]+/[place]+HR-2 negative left breast (L#2) IDC, intermediate grade and DCIS intermediate grade. Hx of migraines GERD (gastroesophageal reflux disease) Abdominal pain Port-A-Cath in place medcomp power injectible profuse port 8fr single lumen Social History Smoking/Tobacco Use Status: Never Smoking risk assessment performed?: Yes Alcohol Intake: current Alcohol Intake frequency: holidays/special occasions only Drug use: Never Substance use type: does not use Housing: house Do you feel safe at home: Yes Do you feel safe in your relationship?: Yes SDOH(Care Management) Screening Will the Patient Participate in the Screening?: Declined to provide Do you worry about having a steady place to live?: no In the past 12 months, have you had to go without electric, gas, oil or water in your home?: no Have you or anyone in your house had to go without enough food to eat?: no Has lack of transportation kept you from medical appointments or from doing things needed for daily living?: no Has anyone in your support network made you feel unsafe for any reason?: no
--- NOTE | 2024-07-03 10:09 | PGE_ITS ---
Date of Service Date of service: 07/03/24 Time of Service: 09:00 Assessment and Plan Assessment and plan (1) Incarcerated hernia: Status: Acute Assessment and plan: 63-year-old woman who presented with a small bowel obstruction in an incarcerated umbilical hernia. She is hemodynamically stable. She has no peritoneal signs and her abdomen is not noticeably distended and her NG tube has not had any output. Further, her umbilical hernia is palpable and tender but reducible. Overall plan: Diagnostic laparoscopy, laparoscopic ventral hernia repair with mesh. Small bowel resection is still a possibility but felt highly unlikely to be necessary. No blood products under any condition or circumstance Subjective Subjective Interval history since last seen: At the bedside the patient endorses some improvement in her pain compared with yesterday. Her NG tube has not had any output. She denies any past intra-abdominal surgeries She is a Zoroastrianism and does not want to have any blood products under any condition. Exam Narrative Exam Narrative: General: Nontoxic, comfortable and interactive. Does not visibly appear to be in any significant pain or distress. Neuro: Alert and oriented x 3 Psych: Good mood and affect Chest: Nonlabored breathing Heart: Regular Abdomen: Obese, very soft and not noticeably distended, umbilical hernia is reducible and there are no skin changes and it is not tense although it is quite tender. Objective Last Vital Signs Temp 97.7 F 07/03/24 07:38 Pulse 90 07/03/24 07:38 Resp 19 07/03/24 07:38 BP 162/93 H 07/03/24 07:38 Pulse Ox 93 07/03/24 07:38 Laboratory Results - last 24 hr 07/03/24 07/03/24 02:25 04:50 WBC 15.13 H RBC 5.76 H Hgb 17.0 H Hct 49.3 H MCV 86 MCH 29.5 MCHC 34.5 RDW 13.9 Plt Count 239 MPV 9.5 Immature Gran % 0.3 Neutrophils % 88.6 Lymphocytes % 7.7 Monocytes % 3.0 Eosinophils % 0.1 Basophils % 0.3 Nucleated RBC % 0.0 Absolute Neutrophils 13.41 H Absolute Lymphocytes 1.17 L Absolute Monocytes 0.45 Absolute Eosinophils 0.02 Absolute Basophils 0.05 VBG Lactate 2.2 H* 2.4 H* Sodium 136 Potassium 3.3 L Chloride 99 Carbon Dioxide 21.4 Anion Gap 15.6 H BUN 16 Creatinine 0.8 Est GFR (CKD-EPI 2020) 83.26 Glucose 219 H Calcium 9.6 Total Bilirubin 0.74 AST 23 ALT 26 Alkaline Phosphatase 109 Total Protein 8.1 Albumin 4.0 Lipase 24 ABO/Rh O Positive Antibody Screen NEGATIVE Time Spent with Patient Time Spent with Patient: 25-34 minutes Time was spent: preparing to see the patient(eg.review tests), obtaining and/or reviewing [facility], ordering medications,tests, procedures, referring, communicating with other health caregiver services home, indepentently interpreting results, counseling the patient, care coordination and other
--- NOTE | 2024-07-03 11:08 | W.PM.OP ---
Date of service: 07/03/24 Time of Service: 12:25 Operative Note Operative Note Refer to Anesthesia Record Procedure Description: PROCEDURES PERFORMED: 1. Laparoscopic ventral hernia repair with mesh (IPOM) 2. Laparoscopic bilateral TAP block Preoperative Diagnosis: Small bowel obstruction, incarcerated umbilical hernia Postoperative Diagnosis: Reducible umbilical hernia Surgeon: Anna Marie Garrido Assist: Christi Anesthesia: General Anesthesiologist: Nilson Indication: Incarcerated umbilical hernia causing small bowel obstruction on CT scan. Soft and reducible clinically, but recurs. Findings: The small bowel was not stuck or adherent in any way nor were there any intra-abdominal adhesions. The obstruction had clearly been relieved and I was able to run the small bowel all the way to the ileocecal valve effortlessly. The hernia defect had no incarcerated contents. The hernia sac was circumferentially divided and excised. The fascia was closed primarily with PDS. IPOM mesh was placed to buttress the repair. Complications: None Estimated Blood Loss: (5cc) Scant Specimens removed: Hernia sac Grafts or implants: Bard Ventralight mesh Procedure in detail: Written consent was obtained from the patient who was in agreement with the risks, the benefits and the indications for the procedure. The patient was taken to the operating suite and laid supine on the operating table with left arm tucked. IV antibiotics were not indicated and DVT prophylaxis had been given. Venodynes were in place. General anesthesia was administered which was tolerated very well. We then prepped and draped the abdomen in sterile fashion. A timeout was performed. When we were all in agreement we began the procedure. Local anesthetic was injected at each trocar site. Just beneath the left costal margin, a small stab incision was made and a 5 mm Optiview trocar was used to enter into the abdomen under direct visualization. The umbilical hernia defect was visible with no incarcerated contents at the time of exploration. There were no intra-abdominal adhesions. The liver was inspected and did not appear cirrhotic. 2 other ports were placed under direct visualization along the left sidewall. The 12 mm port was placed mid- abdomen. A bilateral TAP block was performed under laparoscopic vision with a mixture of Exparel and bupivacaine. I ran the small bowel from dilated proximal loops all the way to the ileocecal valve effortlessly. There were no adhesions and there was nowhere that it was obstructed. The previously?obstructed segments were easy to identify and slightly hemorrhagic but completely viable. Nothing was going to need to be resected. I divided the peritoneum lining/hernia sac with the LigaSure circumferentially. This nicely exposed the fascia of the defect and created healthy fresh edges to be reapproximated. Using a Sam-Radha I was able to pass PDS suture in interrupted fashion and primarily closed the defect with 3 interrupted sutures. There was no noticeable tension. Next I buttressed my closure with a Ventralight mesh using the echo positioning system and used an absorbable tacker to fix it in place. Hemostasis was excellent. The bowel was inspected a last time and again appeared completely viable and I had no concern for any portion of it. I closed the 12 mm port defect with 0 Vicryl. The 5 mm ports were removed. I closed the skin with Monocryl and put Dermabond on top. The sponge, instrument and sharps count was correct x3 at the end of the procedure. The patient tolerated the procedure well and was taken to the PACU in hemodynamically stable condition.
[2024-07-03] MEDS: Lactated Ringers 1,000 ML 30 ML IV (11:22)
--- NOTE | 2024-07-03 11:58 | HERN_PTH ---
PATIENT: Parris Ibanez LOC: U#:[id number] AGE/SX: 63/F ROOM: RE07/03/[address]: Gilberto Garrido : 1960 BED: A DIS: 07/04/2024 SPEC #: [id number] RECD: 07/04/24 11:40 STATUS: SHEELA REQ #: [id number] VIOLA: 07/03/24 11:[address]: Gilberto Garrido DEPT: Surgical Specimen RECD BY: Cintia Salazar ENTERED: 07/04/24 11:41 SP TYPE: Hernia Sac OTHR DR: Alida Adams Tissues: 1 - HERNIA SAC,OTHER Procedures: GROSS AND MICRO LEVEL 2 Comments: [id number]
[2024-07-03] MEDS: Bupivacaine LIPOSOME/PF 133 MG/10 ML VIAL IJ (12:01)
[2024-07-03] MEDS: Bupivacaine 0.25% Pres-Free 30 ML VIAL (12:01)
--- NOTE | 2024-07-03 13:10 | W.ANESPOSTOP ---
Postoperative Evaluation Date, Time and Location Date Performed: 07/03/24 Time Performed: 13:10 Patient Location: PACU Vital Signs Most Recent Imported Vital Signs: Most Recent Vital Signs Temp Pulse Resp BP Pulse Ox 36.5 C 73 24 128/71 96 07/03/24 13:06 07/03/24 13:06 07/03/24 13:06 07/03/24 13:06 07/03/24 13:06 Pain Score Most Recent Pain Score: Most Recent Pain Score Pain Level 4 07/03/24 12:53 Assessment Mental Status: Arousable with meaningful communication Airway and Respiratory Function: Patent airway with normal (patient baseline) respiratory exam Cardiovascular Function: Hemodynamically Stable Hydration Status: Adequately Hydrated Nausea & Vomiting: No Nausea or Vomiting Pain: Pain is tolerable per patient Peripheral Nerve Block: Patient did not receive a nerve block
[2024-07-03] MEDS: Acetaminophen 500 MG TAB 1000 MG PO ×2 (17:38→23:32)
--- NOTE | 2024-07-03 21:05 | RESPIRATORY ---
SHRIMP PEELING MACHINE TENDER spoke with patient regarding CINTIA. Pt. states that she uses CPAP through [facility] without supplemental of O2 that is not brought in with her here. Also, unsure of it's settings. RT convinced patient that hospital provides CPAP tonight if she wants, which she refuses to use. States will be okay with NC. Pt. on 1LPM NC, saturing above 92%. SHRIMP PEELING MACHINE TENDER informed pt. to let us know if she changes her mind later to decide to use [facility]'s CPAP.
[2024-07-04] MEDS: MORPHine 2 MG/ML SYR 4 MG IVP ×3 (04:26→14:23)
[2024-07-04] MEDS: Normal Saline Flush 10 ML SYR IVP ×3 (04:27→14:24)
[2024-07-04 04:41] VITALS: BP 132/73; PULSE 67; RESP 18; TEMP 36.6; O2SAT 95
[2024-07-04] MEDS: Acetaminophen 500 MG TAB 1000 MG PO ×2 (06:12→11:50)
[2024-07-04 07:48] VITALS: BP 124/73; PULSE 70; RESP 17; TEMP 36.4; O2SAT 95
--- NOTE | 2024-07-04 10:42 | PDOC.CMPRO ---
Date of service: 07/04/24 Time of Service: 10:42 Care Management Progress Note Discharge Potential Discharge Needs: Surgical F/U Appt Anticipated Barriers to Discharge: None Identified Patient/Family Education Needs: Review discharge instructions, discuss Ask Me Three Transportation: Private vehicle Plan: Anticipate Parris will be discharged home with no new services when medically stable. She will follow up with her surgeon, PCP and plan of care and transport with family. CM will follow and continue to assess for discharge needs. SDOH(Care Management) Screening Will the Patient Participate in the Screening?: Declined to provide Do you worry about having a steady place to live?: no In the past 12 months, have you had to go without electric, gas, oil or water in your home?: no Have you or anyone in your house had to go without enough food to eat?: no Has lack of transportation kept you from medical appointments or from doing things needed for daily living?: no Has anyone in your support network made you feel unsafe for any reason?: no
--- NOTE | 2024-07-04 11:04 | DSE_ITS ---
Date of service: 07/04/24 Time of Service: 11:04 DS: Diagnosis Discharge Diagnosis (1) Incarcerated hernia: Status: Acute Asessment and Plan: 63-year-old woman is postop day 1 from laparoscopic ventral hernia repair. She is hemodynamically stable and doing excellent. Passing gas, no nausea or further vomiting. She is tolerating clear liquid diet. Overall plan: Regular diet Discharge home Discharge Plan Disposition Patient Disposition: Home Condition: Good Discharge Details Reason For Visit: bowel obstruction Admit Date/Time: 07/03/24 03:37 Admit Provider: Gilberto Garrido Attending Provider: Gilberto Garrido Primary Care Provider: Alida Adams Hospital Course Hospital Course: 63-year-old woman presented to the emergency department with a small bowel obstruction showing a transition point in the small umbilical hernia. This was reduced. She was then taken to the operating room and a laparoscopic ventral hernia repair was performed. All of her small bowel was completely viable and nothing needed to be resected. Her hernia repair was done with mesh. On postoperative day 1 she was tolerating a liquid diet and having bowel function and no nausea or vomiting. She was then set up for discharge home. Home Meds and New Rx's Prescriptions: No Action fluticasone propion-salmeterol [Advair Diskus] 1 EACH blister with device 2 ea Inhalation DAILY verapamil 240 MG tablet extended release 240 mg PO DAILY montelukast 10 MG tablet 10 mg PO DAILY levalbuterol tartrate [Xopenex HFA] 15 GM HFA aerosol inhaler 90 mcg Inhalation Q4H PRN Patient Comments: 03/24/14 pt hasnt used in over a year. Rare use albuterol sulfate 90 mcg/actuation HFA aerosol inhaler 2 puff inhalation Q4H fluticasone propion-salmeterol [Advair HFA] 115-21 mcg/actuation HFA aerosol inhaler 2 puff inhalation DAILY hydrochlorothiazide 25 mg tablet 25 mg PO DAILY ibuprofen 600 MG tablet 600 mg PO Q6H PRN (Reason: Pain) Qty: 20 0RF glucosamine sulfate [Glucosamine] 500 mg Tablet 500 mg PO DAILY paroxetine HCl 20 mg Tablet 40 mg PO DAILY lisinopril 10 mg Tablet 20 mg PO DAILY omega 7-pbe-riv-fish oil [Fish Oil] 1,000 mg (120 mg-180 mg) Capsule 1 cap PO DAILY Humira(CF) Pen 40 mg/0.4 mL pen injector kit 40 mg SUBCUT Q14D omeprazole 40 mg capsule,delayed release(DR/EC) 360 mg PO DAILY Patient Comments: TAKE 1 CAPSULE BY MOUTH EVERY DAY buspirone 5 mg tablet 10 mg PO DAILY Patient Comments: TAKE ONE TABLET BY MOUTH TWICE A DAY AND INCREASE TO THREE TIMES A DAY IF TOLERATED AFTER 7 DAYS letrozole 2.5 mg tablet 2.5 mg PO DAILY Discharge Instructions Additional Instructions: Incisions: Keep clean and dry but they do not need to be covered. It is okay to shower but no tub bathing for 1 week. You can peel the glue off after 1 week. Activity: As tolerated. No strenuous activity or heavy lifting/pulling/pushing for 6 - 8 weeks. However, you can return to any usual activities and light?duty work whenever you feel up to it. If you need a work note call the surgery office. You should walk 30-60 minutes daily. Diet: Regular diet as tolerated Medications: Resume all of your usual/regular home medications Follow-up: Follow-up is optional. If you are having any issues or concerns call the surgery office immediately. If you want to have a routine follow-up that is perfectly fine and you can call and schedule one to be seen in 3 - 4 weeks. If everything is otherwise going well, you do not need to follow-up. Pain control: Take Tylenol, 1000 mg, every 6 hours on a schedule for the next 3 days. You can use ibuprofen in addition to Tylenol. You may want to check with your GI doctor before doing this because some people believe that a Crohn's flare can be caused by ibuprofen. Ice and heat can be used, as desired, as well. Overall: Symptoms should not be worsening. If you have any difficulty breathing or you have return of symptoms of brought you to the hospital or your pain is otherwise worsening each day and you should call the doctor's office or come into the hospital to be checked out. Activity:: Activity as Tolerated Equipment/Supplies:: No Equipment Needed Diet:: As Tolerated DS: Summary Time Spent with Patient providing and/or coordinating discharge services: Greater than 30 minutes Status at Discharge Functional status at discharge: independent ambulation Overall status at discharge: patient is back to baseline Mental Status: mental status grossly normal Speech and Movement: speech and movement normal Mood: congruent mood Affect: normal affect Quality:SDOH Health Related Social Needs: No Data to Display Exam Narrative Exam Narrative: General: Nontoxic, comfortable and interactive Neuro: Alert and oriented x 3 Psych: Good mood and affect, good insight and understanding Chest: Nonlabored breathing Heart: Regular Abdomen: Soft, nondistended, appropriate tenderness around the incision sites only. The incisions themselves look perfect. Glue is intact without any erythema. Psych Mental Status: mental status grossly normal Speech and Movement: speech and movement normal Mood: congruent mood Affect: normal affect DS: Data Vitals/I&O Vitals and I&O: Vital Signs Temperature 97.5 F L 07/04/24 07:48 Temperature Source Temporal Artery Scan 07/04/24 07:48 Pulse 70 07/04/24 07:48 Pulse Rhythm Regular 07/04/24 02:28 Pulse 81 07/03/24 13:11 Respiratory Rate 17 07/04/24 07:48 Respiratory Effort Normal, Non-Labored 07/04/24 02:28 Respiratory Depth Normal 07/04/24 02:28 Respiratory Pattern Normal 07/04/24 02:28 Blood Pressure 124/73 07/04/24 07:48 Blood Pressure Mean 88 07/03/24 13:11 Blood Pressure Position Supine 07/03/24 02:11 Pulse Oximetry 95 07/04/24 07:48 Respiratory End-tidal CO2 49 07/03/24 13:11 Oxygen Delivery Method Room Air 07/04/24 07:48 Oxygen Flow Rate 0 07/04/24 07:48 Pain Level 3 07/04/24 08:47 Comment weaned down to 1L via NC 07/03/24 17:35 Comment pain is back up. 07/03/24 05:01 Intake & Output 07/03/24 07/03/24 07/04/24 11:59 23:59 11:59 Intake Total 1640 / 2690.5 1050.5 / 2690.5 567.5 / 567.5 Output Total 200 / 550 350 / 550 Balance 1440 / 2140.5 700.5 / 2140.5 567.5 / 567.5 Weight 273 lb Intake: IV 1640 / 2330.5 690.5 / 2330.5 87.5 / 87.5 Oral 360 / 360 480 / 480 Output: Gastric Drainage 200 / 200 Right Nare 200 / 200 Urine 350 / 350 Other: Urine Color Yellow Light Rosaura Urine Appearance Clear Clear Clear Urine Odor Normal None Comment self reported voided in toilet Emesis Description None Gastric Occult Blood Right Nare Negative Voiding Methods Toilet Toilet PFSH All Active Problems (Updated 07/03/24 @ 08:16 by Gilberto Garrido MD) Incarcerated hernia (Acute) Tracheobronchomalacia (Acute) Crohns disease (Chronic) Hypertension (Chronic) Chest pain (Acute) Asthma (Chronic) Sleep apnea (Chronic) Chest pain (Acute) Medical History (Updated 07/03/24 @ 08:16 by Gilberto Garrido MD) Mood disorder 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 Hx of migraines GERD (gastroesophageal reflux disease) Abdominal pain Port-A-Cath in place medcomp power injectible profuse port 8fr single lumen Surgical History (Updated 07/04/24 @ 09:17 by Susana Gastelum) S/P ventral herniorrhaphy (~06/2024) Social History Smoking/Tobacco Use Status: Never Smoking risk assessment performed?: Yes Alcohol Intake: current Alcohol Intake frequency: holidays/special occasions only Drug use: Never Substance use type: does not use Housing: house Do you feel safe at home: Yes Do you feel safe in your relationship?: Yes Time Spent with Patient Time Spent with Patient: <45 minutes Time was spent: preparing to see the patient(eg.review tests), obtaining and/or reviewing separately otained hiistory, ordering medications,tests, procedures, referring, communicating with other health animal caretaker supervisor, indepentently interpreting results, counseling the patient, care coordination and other
[2024-07-04 11:20] VITALS: BP 146/69; PULSE 75; RESP 20; TEMP 36.9; O2SAT 90
[2024-07-04] MEDS: Ibuprofen 600 MG TAB PO (14:19)
[2024-07-04 15:09] VITALS: BP 147/74; PULSE 78; RESP 19; TEMP 36.6; O2SAT 87
--- NOTE | 2024-07-04 18:03 | CMDISCH_ITS ---
Date of service: 07/04/24 Time of Service: 18:03 LACE Index Scoring Tool Questions: Length of Stay (in days): 1 Was the patient admitted via the E.D.?: Yes Comorbidities: Any Tumor E.D. Visits: 1 Answers: Total Score: 7 Risk of Readmission: Low Risk Care Management Discharge Plan Reason for Hospitalization: bowel obstruction Discharge Plan: Parris will be discharged home with no new services. She will follow up with her surgeon and plan of care and transport with family. Patient/Family Education Needs: Review of discharge instructions, activity, limitations, follow up plan, discuss [facility] Health Related Social Needs: No Data to Display
== END 2024-07-04 18:16 | disposition home or self-care (01) | DRG 354 ==
LOC: ER 04:56 → MS 05:34
PROVIDERS: Admitting Provider Student in an Organized Health Care Education/Training Program; Emergency Provider Student in an Organized Health Care Education/Training Program; PCP Nurse Practitioner Family; Visit Provider Student in an Organized Health Care Education/Training Program
PROC: 0WQF4ZZ Repair Abdominal Wall, Percutaneous Endoscopic Approach (ICD-10-PCS; CPT 49591; principal; 2024-07-03 10:00)
DX: K42.0 Umbilical hernia with obstruction, without gangrene (principal); D84.821 Immunodeficiency due to drugs; K50.90 Crohn's disease, unspecified, without complications; Z68.41 Body mass index [BMI] 40.0-44.9, adult; I10 Essential (primary) hypertension; J39.8 Other specified diseases of upper respiratory tract; G47.30 Sleep apnea, unspecified; K21.9 Gastro-esophageal reflux disease without esophagitis; J45.909 Unspecified asthma, uncomplicated; G43.909 Migraine, unspecified, not intractable, without status migrainosus; Z95.828 Presence of other vascular implants and grafts; F39 Unspecified mood [affective] disorder; Z79.620 Long term (current) use of immunosuppressive biologic; C50.812 Malignant neoplasm of overlapping sites of left female breast; E66.01 Morbid (severe) obesity due to excess calories; E86.0 Dehydration
CPT/HCPCS: 49591; 00123; 36415; 71045; 80053; 83690; 86850; 86900; 86901; 93005; 96361; 96374; 96375; 96376; 99285; 74177; 83605; 85025; 88302; 93010; C1781; C9290; J0131; J0665; J1100; J2001; J2250; J2270; J2405; J2543; J2704; J3475; J3490

== ENCOUNTER 2024-08-29 00:39 | Outpatient (CLI) | payer MEDICAID, SELFPAY ==
--- NOTE | 2024-08-29 | DI.MAMMO_ITS ---
Exam(s) US BREAST RT COMPLETE MG MAMMO SCREENING 60 MIN DUR EXAM: MG MAMMO SCREENING 60 MIN DUR AND COMPLETE RIGHT BREAST ULTRASOUND CLINICAL HISTORY: Malignant neoplasm of overlapping sites of breast in female, estrogen. TECHNIQUE: Bilateral full field digital CC and MLO mammographic images were obtained with 3D tomosyn thesis and utilizing computer aided detection (CAD). ALSO performed spot compression view of new nodular density in the right breast. Complete right breast ultrasound was performed including all 4 quadrants as well as the axillary sai ons. COMPARISON: Prior mammograms were reviewed. Most recent mammogram was August 2022. Since that date this patient underwent lumpectomy for malignancy in left breast FINDINGS: MAMMOGRAM: LEFT BREAST: Lumpectomy site appears benign with some architectural distortion/scarring but no new di scernible lesions nor malignant-appearing microcalcification groups in the left breast. RIGHT BREAST: There is a new asymmetric density-nodule located slightly lateral of center on the mammogram, approxi mately 7 cm in from the nipple on the CC view, measuring 10 x 5 mm on mammogram.. Additional spot co mpression view was performed and does not dissipate this nodule. It appears slightly spiculated. Th ere are no malignant-appearing microcalcification groups in this region nor elsewhere in the right br east. There is a biopsy marker clip in the right breast located 3 cm lateral of this new nodular finding. This biopsy marker clip was not evident on mammogram of August 2022. There is no significant architectural distortion nor skin thickening-retraction. We proceeded with right breast ultrasound..... COMPLETE RIGHT BREAST ULTRASOUND: There is a solitary ultrasound finding in the right breast which is at the 9 o'clock position, approx imately 3-4 cm in from the nipple. This is a wider than taller 10 x 5 mm nodule with neutral through transmission and relatively well-defined. No other focal ultrasound findings in all 4 quadrants. Scanning of the right axilla is negative for significant adenopathy IMPRESSION: 1. No radiographic evidence of malignancy in the left breast. The left breast lumpectomy site appear s benign. 2. There is a new nodular density in the right breast slightly lateral of center on the mammogram and appearing to be at 9 o'clock position on ultrasound, measuring 10 x 5 mm. Wider than taller on ultr asound and without decreased through transmission. Nevertheless suspicious and biopsy is recommended . 3. Somewhat confusing here is the fact that there is a biopsy marker clip in right breast lateral of center which was not evident on prior mammograms including the August 2022 mammogram (which the margaret ent claims was her most recent mammogram). Please correlate with prior breast history since her last mammogram of August 2022. BI-RADS Category 4 - Suspicious Abnormality: Biopsy should be considered Breast Density - Category B - Scattered areas of fibroglandular density Findings discussed by phone with patient's primary care provider nurse-practitioner Alida Adams. We we re not able to successfully reach the ordering provider at [facility]. Breast density Category C or D implies that the patient has dense breast tissue. Dense breast tissue can make it harder to find cancer on a mammogram. Dense breast tissue is also associated with an incr eased risk of breast cancer. This information about the result of the mammogram report was provided to the patient to raise their awareness. Use this report when you speak with the patient about their risks for breast cancer, which includes their family history. At that time, you may recommend additional screening tests (Ultrasoun d or MRI) as these tests may add significant information. A negative radiographic report should not delay biopsy if a dominant or clinically suspicious mass is present. Up to ten percent of cancers are not identified on mammography. A negative report may reinforce clinical impression. Adenosis and dense breasts may obscure an underlying neoplasm. False positive reports average 6 to 10%. Patient will receive a letter notifying them of these results.
== END 2024-08-29 00:59 ==
LOC: DI 00:39
PROVIDERS: PCP Nurse Practitioner Family; Visit Provider Internal Medicine Medical Oncology
DX: Z12.31 Encounter for screening mammogram for malignant neoplasm of breast (principal); R92.8 Other abnormal and inconclusive findings on diagnostic imaging of breast
CPT/HCPCS: 76642; 77063; 77067

== ENCOUNTER 2024-10-24 18:50 | Outpatient (REF) | payer MEDICAID, SELFPAY | END 2024-10-24 18:51 | disposition home or self-care (01) | LOC: NCHCN 18:50 | PROVIDERS: PCP Nurse Practitioner Family; Visit Provider Nurse Practitioner Family | DX: R30.0 Dysuria (principal) | CPT/HCPCS: 87086 ==

== ENCOUNTER 2024-11-17 12:39 | Outpatient (CLI) | payer MEDICAID, SELFPAY ==
[2024-11-17 13:18] LABS: Abs Immature Grans 0.03 10^3/uL (0.0-0.06); Absolute Basophil Count 0.05 10^3/uL (0.0-0.2); Absolute Eosinophil Count 0.45 10^3/uL (0.0-0.7); Absolute Lymphocyte Count 2.14 10^3/uL (1.2-3.4); Absolute Monocyte Count 0.79 10^3/uL (0.1-0.8); Absolute Neutrophil Count 4.55 10^3/uL (1.2-6.7); Basophils % 0.6 %; Eosinophils % 5.6 %; HGB 13.9 g/dL (11.2-15.7); Immature Grans % 0.4 %; Lymphocytes % 26.7 %; MCH 28.5 pg (27.0-33.0); MCHC 33.1 % (32.0-36.0); MCV 86 fL (80-95); MPV 9.1 fL (8.0-11.0); Monocytes % 9.9 %; Neutrophils % 56.8 %; Platelet Count 219 10^3/uL (130-400); RBC 4.87 10^6/uL (3.93-5.22); RDW 13.9 % (11.7-14.6); RDW-SD 44.2 fL; WBC 8.01 10^3/uL (4.4-10.8)
[2024-11-17 14:17] LABS: ALT 21 U/L (14-59); AST 19 U/L (15-37); Albumin 3.6 g/dL (3.4-5.0); Alkaline Phosphatase 105 U/L (46-116); Bilirubin, Direct 0.1 mg/dL (0.0-0.2); Bilirubin, Total 0.26 mg/dL (0.2-1.0); C-Reactive Protein 0.69 mg/dL (<or=0.5); Total Protein 7.3 g/dL (6.4-8.2)
== END 2024-11-17 12:40 | disposition home or self-care (01) ==
LOC: LBO 12:40
PROVIDERS: PCP Nurse Practitioner Family; Visit Provider Internal Medicine Gastroenterology
DX: K50.818 Crohn's disease of both small and large intestine with other complication (principal)
CPT/HCPCS: 36415; 80076; 85025; 86140

== ENCOUNTER 2024-11-17 12:40 | Outpatient (CLI) | payer MEDICAID, SELFPAY ==
--- NOTE | 2024-11-17 12:50 | DI.RAD_ITS ---
Exam(s) XR FOOT LT COMPLETE EXAM: XR FOOT LT COMPLETE CLINICAL HISTORY: Injury of lt foot, S90.32XA, contusion of lt foot. TECHNIQUE: 2D digital imaging was performed of the left foot. Three images were obtained. AP, obli que and lateral views were obtained. COMPARISON: No exams were available for comparison FINDINGS: BONES: There is an acute nondisplaced fracture involving the proximal phalanx of the left 3rd toe. T he fracture does not extend into the joint space. There is a small enthesophyte at the posterior saritha caneus. There is a small plantar calcaneal spur. No bony destructive lesion is seen. JOINTS: No dislocation present. SOFT TISSUE: Normal. IMPRESSION: Acute fracture involving the proximal phalanx of the left 3rd toe. DATA REPOSITORY: RADIATION DOSE DELIVERED:
== END 2024-11-17 13:00 ==
PROVIDERS: PCP Nurse Practitioner Family; Visit Provider Emergency Medicine Emergency Medical Services
DX: S90.32XA Contusion of left foot, initial encounter (principal); X58.XXXA Exposure to other specified factors, initial encounter
CPT/HCPCS: 73630

== ENCOUNTER 2024-11-22 13:52 | Outpatient (REF) | payer MEDICAID, SELFPAY | END 2024-11-22 13:53 | disposition home or self-care (01) | LOC: NCHCN 13:52 | PROVIDERS: PCP Nurse Practitioner Family; Visit Provider Nurse Practitioner Family | DX: R30.0 Dysuria (principal); R82.89 Other abnormal findings on cytological and histological examination of urine | CPT/HCPCS: 87077; 87086; 87186 ==

== ENCOUNTER 2025-05-25 16:25 | Outpatient (REF) | payer MEDICAID, SELFPAY ==
[2025-05-25 21:33] LABS: ALT 28 U/L (14-59); AST 20 U/L (15-37); Albumin 4.0 g/dL (3.4-5.0); Alkaline Phosphatase 113 U/L (46-116); Anion Gap 8.1 mmol/L (3-11); BUN 26 mg/dL (7-18); Bilirubin, Total 0.4 mg/dL (0.2-1.0); CO2 30.9 mmol/L (21.0-32.0); Calcium 9.1 mg/dL (8.5-10.1); Calculated LDL 115 mg/dL (<100); Chloride 102 mmol/L (98-107); Cholesterol 215 mg/dL (<200); Estimated GFR 82.74 (mL/min/1.73m2); Glucose 94 mg/dL (74-106); HDL Cholesterol 69 mg/dL (>or=50); Potassium 3.9 mmol/L (3.5-5.1); Sodium 141 mmol/L (136-145); Total Protein 7.3 g/dL (6.4-8.2); Triglyceride 155 mg/dL (<150); Vitamin B12 328 pg/mL (193-986); Vitamin D 25 Total 16 ng/mL (30-100)
== END 2025-05-25 16:26 | disposition home or self-care (01) ==
LOC: NCHCN 16:25
PROVIDERS: PCP Nurse Practitioner Family; Visit Provider Nurse Practitioner Family
DX: Z00.00 Encounter for general adult medical examination without abnormal findings (principal); E55.9 Vitamin D deficiency, unspecified; K21.9 Gastro-esophageal reflux disease without esophagitis
CPT/HCPCS: 80053; 80061; 82306; 82607

== ENCOUNTER 2025-06-26 16:15 | Outpatient (REF) | payer MEDICAID, SELFPAY ==
[2025-06-26 21:14] LABS: Glucose Negative (Negative)
[2025-06-26 21:25] LABS: C & S Indicated? Yes; RBC 0-2 HPF (0-2); WBC >50 HPF (0-5)
== END 2025-06-26 16:16 | disposition home or self-care (01) ==
LOC: NCHCN 16:15
PROVIDERS: PCP Nurse Practitioner Family; Visit Provider Nurse Practitioner Family
DX: N39.0 Urinary tract infection, site not specified (principal)
CPT/HCPCS: 87077; 81003; 81015; 87086; 87186

== ENCOUNTER 2025-07-06 16:57 | Outpatient (REF) | payer MEDICAID, SELFPAY ==
[2025-07-06 15:36] LABS: Glucose Negative (Negative)
[2025-07-06 15:48] LABS: RBC 0-2 HPF (0-2); WBC >50 HPF (0-5)
== END 2025-07-06 16:58 | disposition home or self-care (01) ==
LOC: NCHCN 16:57
PROVIDERS: PCP Nurse Practitioner Family; Visit Provider Family Medicine
DX: R30.0 Dysuria (principal)
CPT/HCPCS: 81003; 81015; 87086

== ENCOUNTER 2025-07-24 00:35 | Outpatient (CLI) | payer MEDICAID, SELFPAY ==
--- NOTE | 2025-07-24 | DI.NM_ITS ---
APPROVED REPORT Exam: Pharmacologic Patient Location: Out-Patient Room/Bed: Stress Nurse: Jennifer Perez RN, Mariaelena Calixto RN Ordering Provider:LISA GABRIELA, Contact Number: [phone] BMI: 45.82 Baseline Rhythm: Sinus Bradycardia Indications: Chest pain, limited ability to exercise due to pain and breathing. Medical History Medical History: mood disorder, chest pain, QUINTIN, mixed anxiety, depressive disorder, lymphema, GERD, chrohn's disease, vertigo, primary malignant neoplasm of L breast, HTN, prediabetes, asthma, CINTIA Cardiac Medications: advair, buspirone, glucosamine, humira pen, hydrochlorothiazide, letrolzole, omeprazole, sertraline Allergies: adhesive tape, codeine, golytley, medrol, mercaptopurine, methadone, methylprednisolone, miralax, robitussin cough and cold, sodium sulfate Cardiac Risk Factors: family hx, prediabetes, asthma, HTN, obesity Previous Cardiac Procedures: none Pretest Chest Pain Characteristics: none Exercise History: Sedentary, Indeterminate Lung Sounds: clear Heart Sounds: Regular Stress Test Details Test: Pharmacologic stress testing performed using 0.4 mg of regadenoson per 5 mL given IV over 10 seconds. Reason for pharmacologic stress test: physical limitation. Nuclear Acquisition: Rest Tc-99m/Stress Tc-99m 1 day Rest Isotope: Tc-99m Sestamibi. Dose: 12 Date: 07/24/2025 Injection Time: 0935 Stress Isotope: Tc-99m Sestamibi. Dose: 30 Date: 07/24/2025 Injection Time: 1155 HR Resting HR Supine: 55 bpm Max Heart Rate (APMHR): 157 bpm Target HR (85% APMHR): 133 bpm Max HR Achieved: 102 bpm % of APMHR: 65 Recovery HR: 82 bpm BP Resting BP Supine: 162/90 mmHg Max BP: 170/80 mmHg Recovery BP: 160/98 mmHg ECG Resting ECG: Sinus Bradycardia Ectopy: none Stress ECG: Sinus Rhythm ST Change: Nondiagnostic low heart rate Arrhythmia: rare PVC Recovery ECG: Sinus Rhythm Recovery ST Change: Nondiagnostic low heart rate Clinical Stress Symptoms: moderate SOB Angina Score: none Rate Pressure Product: [id number] Stress ECG Conclusion 1. Resting electrocardiogram was normal 2. Patient underwent testing using pharmacologic stress with regadenoson 3. Peak heart rate achieved was 65% of maximal predicted for age 4. The electrocardiographic portion of the test was nondiagnostic 5. See MPI report Stress Test Summary STAGE HR BP SpO2 Symptoms NOTES Supine 55 162/90 97 1 min post Lexiscan injection 97 170/80 99 3 min post Lexiscan injection 86 140/80 98 6 min post Lexiscan injection 82 160/98 98 Patient was a laying sade due to being unable to physically walk on treadmill. During test patient became moderately SOB and anxious which resolved by test end. Left in wheelchair per patient's request due to shakiness. Able to stand and pivot to W/C with no difficulty. Proceeded to cafeteria with family. MPI Conclusion Myocardial perfusion is normal. There is no ischemia or evidence of prior infarction Ejection fraction is 68% with normal wall motion
[2025-07-24] MEDS: Regadenoson 0.4 MG/5 ML SYR IVP (12:30)
== END 2025-07-24 00:55 ==
PROVIDERS: PCP Nurse Practitioner Family; Visit Provider Internal Medicine Cardiovascular Disease
DX: R07.89 Other chest pain (principal)
CPT/HCPCS: 78452; 93017; J2785